=== PATIENT | female | born 1955 | race Two or more races ===

== ENCOUNTER 2016-05-01 10:48 | Emergency (ER) | payer BC ==
[2016-05-01] MEDS ORDERED: Aspirin Low Dose CHEW TAB* 81 MG PO ONE (11:06)
[2016-05-01] MEDS ORDERED: Nitroglycerin TAB 0.4 MG* 0.4 MG TAB SL ONE (11:07)
[2016-05-01 11:09] VITALS: BP 201/96
--- NOTE | 2016-05-01 11:26 | UC ---
Cardiac HPI - HPI Summary HPI Summary: ONSET OF MIDSTERNAL CHEST HEAVINESS/PAIN LAST NIGHT WHILE AT REST. HAS SOME RADIATION DOWN LEFT ARM. WENT TO SLEEP AND THIS MORNING FELT BETTER. SWEPT THE HOUSE AND THEN PAIN RETURNED. 08/03. HAS ASSOCIATED NAUSEA. NO SOB OR SWEATS. HAS H/O DM, HTN. GLUCOSE 105 [employer]. - History of Current Complaint Chief Complaint: UCChestPain Stated Complaint: CHEST PAIN Time Seen by Provider: 05/01/16 10:50 Hx Obtained From: Patient, Family/Processing Engineer - Onset/Duration: Sudden Onset, Lasting Hours, Still Present Initial Severity: Moderate Current Severity: Moderate Pain Intensity: 4 Chest Pain Location: Mid Sternal Character: Heaviness Aggravating: Nothing Alleviating: Nothing Associated Signs & Symptoms: Positive: Chest Pain, Nausea/Vomiting - Allergy/Home Medications Allergies/Adverse Reactions: Allergies Allergy/AdvReac Type Severity Reaction Status Date / Time No Known Allergies Allergy Verified 05/01/16 10:59 PMH/Surg Hx/FS Hx/Imm Hx Endocrine History Of: Reports: Diabetes Cardiovascular History Of: Reports: Hypertension Denies: Cardiac Disorders, Pacemaker/ICD - Surgical History Surgical History: Yes Surgery Procedure, Year, and Place: pancreatic cyst - Family History Known Family History: Positive: Hypertension, Diabetes Negative: Cardiac Disease - Social History Alcohol Use: None Substance Use Type: None Smoking Status (MU): Never Smoked Tobacco Review of Systems Constitutional: Negative Respiratory: Negative Cardiovascular: Chest Pain Gastrointestinal: Diarrhea, Other - NAUSEA All Other Systems Reviewed And Are Negative: Yes Physical Exam Triage Information Reviewed: Yes Appearance: Well-Appearing, Well-Nourished, Pain Distress - MILD Vital Signs: Initial Vital Signs Temp 98.1 F 05/01/16 11:01 Pulse 69 05/01/16 11:01 Resp 18 05/01/16 11:01 BP 201/96 05/01/16 11:01 Pulse Ox 100 05/01/16 11:01 Vital Signs Reviewed: Yes Eyes: Positive: Conjunctiva Clear ENT: Positive: Hearing grossly normal Neck: Positive: Supple Respiratory Exam: Normal Cardiovascular Exam: Normal Abdomen Description: Positive: Soft Musculoskeletal: Positive: No Edema Neurological: Positive: Alert Psychological: Positive: Age Appropriate Behavior Skin: Negative: rashes Diagnostics - EKG Cardiac Rate: NL - 69 BPM Cardiac Rhythm: Sinus: Normal Ectopy: None ST Segment: Normal - Differential Diagnoses - Chest Pain Differential Diagnosis/HQI/PQRI: Acute MO, ACS, Angina, CHF - Clinical Impression Provider Diagnoses: CHEST PAIN - Physician Notifications Discussed Patient Care With: DR. NUNEZ Time Discussed With Above Provider: 11:10 Instructed by Provider To: Transfer - TO [facility] BY AMBULANCE Discharge - Discharge Plan Condition: Guarded Disposition: TRANS HIGHER LVL OF CARE FAC Referrals: Teofilo Pruett MD [Primary Care Provider] -
== END 2016-05-01 11:27 | disposition short-term general hospital (02) ==
LOC: UCEAST 10:48
DX: R07.89 Other chest pain (principal); R11.2 Nausea with vomiting, unspecified
CPT/HCPCS: 93005; 99213; A9270-GY; G0463

== ENCOUNTER 2016-05-01 11:43 | Emergency (ER) | payer BC ==
[2016-05-01] MEDS ORDERED: Aspirin Low Dose CHEW TAB* 81 MG PO ONE (12:20)
[2016-05-01 12:46] LABS: Hematocrit 38 % (35-47); Hemoglobin 12.6 g/dl (12.0-16.0); Mean Corpuscular HGB Conc 33 g/dl (31-36); Mean Corpuscular Hemoglobin 29 pg (27-31); Mean Corpuscular Volume 88 fL (80-97); Mean Platelet Volume 8 um3 (7.4-10.4); Red Blood Count 4.33 10^6/ul (4.0-5.4); Red Cell Distribution Width 14 % (10.5-15); White Blood Count 4.8 10^3/ul (3.5-10.8)
[2016-05-01 12:58] LABS: Albumin 4.1 g/dL (3.2-5.2); BUN/Creatinine Ratio 17.6 (8-20); Calcium 9.6 mg/dL (8.6-10.3); EGFR African American 86.9 (>60); EGFR Non-African American 67.5 (>60); Globulin 3.1 g/dL (2-4); Magnesium 1.7 mg/dL (1.9-2.7); Potassium 4.1 mmol/L (3.5-5.0); Total Bilirubin 0.5 mg/dL (0.2-1.0); Total Protein 7.2 g/dL (6.4-8.9)
--- NOTE | 2016-05-01 12:58 | RAD ---
Indication: Mid to LEFT side chest pain since last evening. Comparison: February 01, 2013 CT. Technique: Upright AP 1230 hours Report: Rightward rotation noted. Clear lungs and pleural spaces. Negative for pneumothorax. Top normal heart size. Unremarkable central pulmonary vasculature. Unremarkable mediastinal contours accounting for rightward rotation. Epigastric surgical clips. IMPRESSION: No evidence for acute intrathoracic disease.
[2016-05-01 13:08] LABS: T4 7.9 g/dL (6.09-12.23)
[2016-05-01 13:09] LABS: TSH (Thyroid Stimulating Horm) 1.38 mcIU/mL (0.34-5.60)
[2016-05-01] MEDS ORDERED: Meclizine TAB* 12.5 MG PO ONE (14:32)
[2016-05-01] MEDS ORDERED: Labetalol IV* 5 MG/ML 20 ML VIAL IV PUSH ONE (14:33)
[2016-05-01 15:08] VITALS: BP 149/59
--- NOTE | 2016-05-01 16:57 | ED ---
Yunior Roblero Matthew, scribed for Juma Chau MD on 05/01/16 at 1315 . HPI Chest Pain - HPI Summary HPI Summary: A 61 y/o female presents to the ED with left sided chest pain since last night that started after the patient was watching TV. The pain was described as tightness, rated 6/10 in severity; however it is currently rated 0/10 in severity. Associated symptoms include loose BM x2 this morning, nausea, dizziness, diaphoresis, and vomiting - last night. The patient denies SOB and pedal edema. She initially thought it was her BP last night, so she took her medication and felt better. She woke-up this morning feeling fine. She then began to have nausea, diaphoresis, and dizziness, so she called her PCP who prompted her to come to the ED. She checked her sugars, which were normal this morning. - History of Current Complaint Chief Complaint: ED Time Seen by Provider: 05/01/16 12:20 Hx Obtained From: Patient Onset/Duration: Atraumatic Initial Severity: Moderate Current Severity: None Pain Intensity: 6 Pain Scale Used: 0-10 Numeric Chest Pain Location: Left Lateral Chest Pain Radiates: No Character: Tightness Aggravating Factor(s): Nothing Alleviating Factor(s): Nothing Associated Signs and Symptoms: Positive: Chest Pain, Dizziness, Diaphoresis, Nausea, Vomiting - last night. Negative: Shortness of Breath, Calf Pain/ Swelling, Edema - Allergy/Home Medications Allergies/Adverse Reactions: Allergies Allergy/AdvReac Type Severity Reaction Status Date / Time No Known Allergies Allergy Verified 05/01/16 10:59 Home Medications: Home Medications Gabapentin CAP(*) [Neurontin 100 mg CAP(*)] 100 - 300 mg PO BEDTIME 05/01/16 [ History Confirmed 05/01/16] Lisinopril [Lisinopril 40 MG-] 40 mg PO DAILY 05/01/16 [History Confirmed ] Pioglitazone TAB* [Actos TAB*] 30 mg PO QAM 05/01/16 [History Confirmed 05/01/16 ] glipiZIDE TAB.XL* [Glucotrol XL*] 2.5 mg PO DAILY 05/01/16 [History Confirmed ] metFORMIN* [Glucophage*] 1,000 mg PO DAILY 05/01/16 [History Confirmed 05/01/16] PMH/Surg Hx/FS Hx/Imm Hx Endocrine/Hematology History: Reports: Hx Diabetes Cardiovascular History: Reports: Hx Hypertension Denies: Hx Pacemaker/ICD Sensory History: Denies: Hx Hearing Aid Psychiatric History: Reports: Hx Panic Disorder - a little nervous - Cancer History Cancer Type, Location and Year: panc - Surgical History Surgery Procedure, Year, and Place: pancreatic cyst Infectious Disease History: Denies: Hx Clostridium Difficile, Hx Hepatitis, Hx Human Immunodeficiency Virus (HIV), Hx of Known/Suspected MRSA, Hx Shingles, Hx Tuberculosis, Hx Known/ Suspected VRE, Hx Known/Suspected VRSA, History Other Infectious Disease, Traveled Outside the [place] in Last 30 Days - Family History Known Family History: Positive: Hypertension, Diabetes Negative: Cardiac Disease - Social History Alcohol Use: None Substance Use Type: Reports: None Smoking Status (MU): Never Smoked Tobacco Review of Systems Positive: Skin Diaphoresis Eyes: Negative ENT: Negative Positive: Chest Pain Respiratory: Negative Negative: Shortness Of Breath Positive: Vomiting, Nausea, Other - loose BM Genitourinary: Negative Musculoskeletal: Negative Negative: Edema - pedal Skin: Negative Neurological: Other - Dizziness Psychological: Normal All Other Systems Reviewed And Are Negative: Yes Physical Exam - Summary Physical Exam Summary: VITAL SIGNS: Reviewed. GENERAL: Patient is an obese female who is lying comfortable in the stretcher. Patient is not in any acute respiratory distress. HEAD AND FACE: No signs of trauma. No ecchymosis, hematomas or skull depressions. No sinus tenderness. EYES: PERRLA, EOMI x 2, No injected conjunctiva, no nystagmus. EARS: Hearing grossly intact. Ear canals and tympanic membranes are within normal limits. MOUTH: Oropharynx within normal limits. NECK: Supple, trachea is midline, no adenopathy, no JVD, no carotid bruit, no c- spine tenderness, neck with full ROM. CHEST: Symmetric, no tenderness at palpation LUNGS: Clear to auscultation bilaterally. No wheezing or crackles. CVS: Regular rate and rhythm, S1 and S2 present, no murmurs or gallops appreciated. ABDOMEN: Soft, non-tender. No signs of distention. No rebound no guarding, and no masses palpated. Bowel sounds are normal. EXTREMITIES: FROM in all major joints, no edema, no cyanosis or clubbing. NEURO: Alert and oriented x 3. No acute neurological deficits. Speech is normal and follows commands. SKIN: Dry and warm Triage Information Reviewed: Yes Vital Signs On Initial Exam: Initial Vitals Temp Pulse Resp BP Pulse Ox 97.5 F 64 15 175/82 62 05/01/16 12:07 05/01/16 12:07 05/01/16 12:07 05/01/16 12:07 05/01/16 12:07 Vital Signs Reviewed: Yes Diagnostics - Vital Signs Vital Signs Temp Pulse Resp BP Pulse Ox 05/01/16 12:07 97.5 F 64 15 175/82 62 - Laboratory Lab Results: Lab Results 05/01/16 05/01/16 05/01/16 Range/Units 11:05 11:05 11:05 WBC 4.8 (3.5-10.8) 10^3/ul RBC 4.33 (4.0-5.4) 10^6/ul Hgb 12.6 (12.0-16.0) g/dl Hct 38 (35-47) % MCV 88 (80-97) fL MCH 29 (27-31) pg MCHC 33 (31-36) g/dl RDW 14 (10.5-15) % Plt Count 198 (150-450) 10^3/ul MPV 8 (7.4-10.4) um3 Neut % (Auto) 49.8 (38-83) % Lymph % (Auto) 40.5 (25-47) % [place] % (Auto) 7.3 (1-9) % Eos % (Auto) 1.9 (0-6) % Baso % (Auto) 0.5 (0-2) % Absolute Neuts (auto) 2.4 (1.5-7.7) 10^3/ul Absolute Lymphs (auto) 1.9 (1.0-4.8) 10^3/ul Absolute Monos (auto) 0.3 (0-0.8) 10^3/ul Absolute Eos (auto) 0.1 (0-0.6) 10^3/ul Absolute Basos (auto) 0 (0-0.2) 10^3/ul Absolute Nucleated RBC 0 10^3/ul Nucleated RBC % 0.1 Sodium 133 (133-145) mmol/L Potassium 4.1 (3.5-5.0) mmol/L Chloride 103 (101-111) mmol/L Carbon Dioxide 28 (22-32) mmol/L Anion Gap 2 (2-11) mmol/L BUN 15 (6-24) mg/dL Creatinine 0.85 (0.51-0.95) mg/dL Est GFR ( Amer) 86.9 (>60) Est GFR (Non-Af Amer) 67.5 (>60) BUN/Creatinine Ratio 17.6 (8-20) Glucose 150 H (70-100) mg/dL Calcium 9.6 (8.6-10.3) mg/dL Magnesium 1.7 L (1.9-2.7) mg/dL Total Bilirubin 0.50 (0.2-1.0) mg/dL AST 22 (13-39) U/L ALT 13 (7-52) U/L Alkaline Phosphatase 64 (34-104) U/L CK-MB (CK-2) 1.6 (0.6-6.3) ng/mL Troponin I 0.00 (<0.04) ng/mL B-Natriuretic Peptide 39 ( - 100) pg/mL Total Protein 7.2 (6.4-8.9) g/dL Albumin 4.1 (3.2-5.2) g/dL Globulin 3.1 (2-4) g/dL Albumin/Globulin Ratio 1.3 (1-3) TSH 1.38 (0.34-5.60) mcIU/mL Thyroxine (T4) 7.90 (6.09-12.23) g/dL Result Diagrams: 05/01/16 11:05 05/01/16 11:05 Lab Statement: Any lab studies that have been ordered have been reviewed, and results considered in the medical decision making process. - Radiology CXR Xray Interpretation: No Acute Changes - IMPRESSION: No evidence for acute intrathoracic disease. Radiology Interpretation Completed By: Radiologist - EKG 13:23 Cardiac Rate: NL - 62 bpm EKG Rhythm: Sinus Rhythm EKG Interpretation: No ST elevation Chest Pain Course/Dx - Course Assessment/Plan: A 61 y/o presents to the ED with a CC of chest pain with nausea. Blood work WNL. Troponin 1 was 0.00. Troponin 2 after 4 hours was 0.00. Since the patient was hypertensive and dyslipidemia, I discussed the case with Dr. Astudillo and since she is unable to run the stress test she recommended the patient DC home and follow-up with her PCP and corporate administrative assistant for possible stress test. She was also given Antivert for dizziness and her symptoms resolved. The patient was slightly hypertensive therefor she was given one dose of Labetalol and the BP improved. She was also dizziness and was given one dose of meclizine. The patient at this point remains asymptomatic and she has no other complaints. The patient and the patients will return ot the ED if she develops CP, nausea, vomiting, SOB, or diaphoresis. They understand and agree. She is hemodynamically stable and A&Ox3. Patients blood pressure was noted to be elevated. The patient was instructed to follow up with primary care provider for reassessment of increased blood pressure. I discussed all my findings and test results with the patient. Patient understands and agrees. Patient was instructed to return to the emergency room immediately if any of the symptoms return or worsens. Patient understands and agrees. Plan of care was discussed with the patient and patient understands and agrees with the plan of care. All questions were answered at patient satisfaction. There were no further complaints or concerns. Patient was instructed to follow up with primary care physician within 3 to 5 days. Patient is hemodynamically stable. Patient is alert and oriented x 3. No acute neurological deficits. - Chest Pain Differential Diagnosis/HQI/PQRI: Acute PR, ACS, Angina, CHF, Chest Wall, GI Disease, Pulmonary Edema - Diagnoses Provider Diagnoses: Chest pain, Dizziness, Hypertension Discharge - Discharge Plan Condition: Stable Disposition: HOME Prescriptions: Meclizine TAB* [Antivert 12.5 TAB*] 25 mg PO TID PRN #20 tab PRN Reason: Dizziness Patient Education Materials: Chest Pain (ED), Vertigo (ED) Referrals: Teofilo Pruett MD [Primary Care Provider] - Carl Hassan MD [Medical Doctor] - Additional Instructions: Please follow-up with your primary care physician and your corporate administrative assistant in two days. The documentation as recorded by the Yunior sparks Matthew accurately reflects the service I personally performed and the decisions made by , Juma Chau MD.
== END 2016-05-01 17:22 | disposition home or self-care (01) ==
LOC: ED 11:43
DX: R07.9 Chest pain, unspecified (principal); I10 Essential (primary) hypertension; R42 Dizziness and giddiness; R11.2 Nausea with vomiting, unspecified
CPT/HCPCS: 36415; 71010; 80053; 82553; 83735; 83880; 84436; 84443; 84484; 85025; 93005; 96365; 99213; 99282; A9270-GY; G0463

== ENCOUNTER 2016-05-02 17:35 | Emergency (ER) | payer BC ==
[2016-05-02 18:40] LABS: Hematocrit 38 % (35-47); Hemoglobin 12.6 g/dl (12.0-16.0); Mean Corpuscular HGB Conc 33 g/dl (31-36); Mean Corpuscular Hemoglobin 29 pg (27-31); Mean Corpuscular Volume 88 fL (80-97); Mean Platelet Volume 8 um3 (7.4-10.4); Red Blood Count 4.36 10^6/ul (4.0-5.4); Red Cell Distribution Width 14 % (10.5-15); White Blood Count 4.8 10^3/ul (3.5-10.8)
--- NOTE | 2016-05-02 18:54 | RAD ---
HISTORY: Dizziness COMPARISONS: None TECHNIQUE: Multiple contiguous axial CT scans were obtained of the head without intravenous contrast. FINDINGS: HEMORRHAGE/INFARCT: There is no hemorrhage or acute infarct. MASSES/SHIFT: There is no mass or shift. EXTRA-AXIAL SPACES: There are no extra-axial fluid collections. SULCI AND VENTRICLES: The sulci and ventricles are normal in size and position for the patient's stated age. CEREBRUM: There are no focal parenchymal abnormalities. BRAINSTEM: There are no focal parenchymal abnormalities. CEREBELLUM: There are no focal parenchymal abnormalities. VESSELS: The vessels are grossly normal. PARANASAL SINUSES: The paranasal sinuses are clear. ORBITS: The orbits are unremarkable. BONES AND SOFT TISSUE: No bone or soft tissue abnormalities are noted. OTHER: None IMPRESSION: NO ACUTE INTRACRANIAL PATHOLOGY.
[2016-05-02 18:55] LABS: BUN/Creatinine Ratio 18.2 (8-20); Calcium 9.4 mg/dL (8.6-10.3); EGFR African American 83.5 (>60); EGFR Non-African American 64.9 (>60); Magnesium 1.6 mg/dL (1.9-2.7); Total Bilirubin 0.5 mg/dL (0.2-1.0)
[2016-05-02 18:57] LABS: Troponin I 0.01 ng/mL (<0.04)
[2016-05-02 19:05] LABS: TSH (Thyroid Stimulating Horm) 1.96 mcIU/mL (0.34-5.60)
[2016-05-02] MEDS ORDERED: Metoprolol Tartrate TAB* 50 mg PO ONE (19:14)
[2016-05-02] MEDS ORDERED: Meclizine TAB* 12.5 MG PO ONE (20:43)
[2016-05-02] MEDS ORDERED: Metoprolol Tartrate TAB* 25 MG PO ONE (21:59)
[2016-05-02 22:18] VITALS: BP 182/69
--- NOTE | 2016-05-02 22:18 | ED ---
Yunior Roblero Matthew, scribed for Papa Oneill MD on 05/02/16 at 1812 . Dizziness - HPI Summary HPI Summary: A 61 y/o female presents to the ED with intermittent dizziness since 04/25/16, which worsened at 16:00 today. The dizziness is described as vertigo and lightheadedness. The patient states that she woke-up normally this morning. Associated symptoms include vomiting, lightheadedness, and vertigo. The patient took meclizine at 16:00 today, which did not alleviate her dizziness. During the episode today, she had left sided chest tightness with no pain, which has since alleviated. The dizziness worsens with the patient sits up and is unaffected when laying down. The patient was seen yesterday in the ED for chest pain. - History Of Current Complaint Chief Complaint: EDDizziness Stated Complaint: HIGH BLOOD PRESSURE/DIZZINESS Time Seen by Provider: 05/02/16 17:48 Hx Obtained From: Patient Onset/Duration: Still Present Timing: Intermittent Episode Lasting Severity Initially: Moderate Severity Currently: Moderate Character: Room Spinning, Lightheaded Aggravating Factor(s): Position Change Alleviating Factor(s): Nothing Associated Signs And Symptoms: Positive: Vomiting, Other: - Lightheaded; Vertigo - Allergies/Home Medications Allergies/Adverse Reactions: Allergies Allergy/AdvReac Type Severity Reaction Status Date / Time No Known Allergies Allergy Verified 05/02/16 17:50 PMH/Surg Hx/FS Hx/Imm Hx Endocrine/Hematology History: Reports: Hx Diabetes Cardiovascular History: Reports: Hx Hypertension Denies: Hx Pacemaker/ICD Sensory History: Denies: Hx Hearing Aid Psychiatric History: Reports: Hx Panic Disorder - a little nervous - Cancer History Cancer Type, Location and Year: panc - Surgical History Surgery Procedure, Year, and Place: pancreatic cyst Infectious Disease History: No Infectious Disease History: Denies: Hx Clostridium Difficile, Hx Hepatitis, Hx Human Immunodeficiency Virus (HIV), Hx of Known/Suspected MRSA, Hx Shingles, Hx Tuberculosis, Hx Known/ Suspected VRE, Hx Known/Suspected VRSA, History Other Infectious Disease, Traveled Outside the [place] in Last 30 Days - Family History Known Family History: Positive: Hypertension, Diabetes Negative: Cardiac Disease - Social History Alcohol Use: None Substance Use Type: Reports: None Smoking Status (MU): Never Smoked Tobacco Review of Systems Constitutional: Negative Eyes: Negative ENT: Negative Cardiovascular: Negative Respiratory: Negative Positive: Vomiting Genitourinary: Negative Musculoskeletal: Negative Skin: Negative Neurological: Other - Lightheaded; Vertigo Psychological: Normal All Other Systems Reviewed And Are Negative: Yes Physical Exam Triage Information Reviewed: Yes Vital Signs On Initial Exam: Initial Vitals Temp Pulse Resp BP Pulse Ox 98.3 F 69 16 201/69 99 05/02/16 17:40 05/02/16 17:40 05/02/16 17:40 05/02/16 17:40 05/02/16 17:40 Vital Signs Reviewed: Yes Appearance: Positive: Well-Appearing, No Pain Distress Skin: Positive: Warm, Skin Color Reflects Adequate Perfusion, Dry Head/Face: Positive: Normal Head/Face Inspection Eyes: Positive: Normal, Other: - no nystagmus; prefers to keep her eyes closed ENT: Positive: Normal ENT inspection Neck: Positive: Supple, Nontender Respiratory/Lung Sounds: Positive: Clear to Auscultation, Breath Sounds Present Cardiovascular: Positive: RRR Abdomen Description: Positive: Nontender, Soft Bowel Sounds: Positive: Present Musculoskeletal: Positive: Normal Neurological: Positive: Normal Psychiatric: Positive: Normal, Affect/Mood Appropriate Diagnostics - Vital Signs Vital Signs Temp Pulse Resp BP Pulse Ox 05/02/16 17:40 98.3 F 69 16 201/69 99 - Laboratory Lab Results: Lab Results 05/02/16 05/02/16 05/02/16 Range/Units 18:32 18:32 18:32 WBC 4.8 (3.5-10.8) 10^3/ul RBC 4.36 (4.0-5.4) 10^6/ul Hgb 12.6 (12.0-16.0) g/dl Hct 38 (35-47) % MCV 88 (80-97) fL MCH 29 (27-31) pg MCHC 33 (31-36) g/dl RDW 14 (10.5-15) % Plt Count 185 (150-450) 10^3/ul MPV 8 (7.4-10.4) um3 Neut % (Auto) 48.3 (38-83) % Lymph % (Auto) 39.4 (25-47) % Will % (Auto) 9.1 H (1-9) % Eos % (Auto) 2.3 (0-6) % Baso % (Auto) 0.9 (0-2) % Absolute Neuts (auto) 2.3 (1.5-7.7) 10^3/ul Absolute Lymphs (auto) 1.9 (1.0-4.8) 10^3/ul Absolute Monos (auto) 0.4 (0-0.8) 10^3/ul Absolute Eos (auto) 0.1 (0-0.6) 10^3/ul Absolute Basos (auto) 0 (0-0.2) 10^3/ul Absolute Nucleated RBC 0 10^3/ul Nucleated RBC % 0.1 Sodium 129 L (133-145) mmol/L Potassium 4.0 (3.5-5.0) mmol/L Chloride 109 (101-111) mmol/L Carbon Dioxide 26 (22-32) mmol/L Anion Gap -6 L (2-11) mmol/L BUN 16 (6-24) mg/dL Creatinine 0.88 (0.51-0.95) mg/dL Est GFR ( Amer) 83.5 (>60) Est GFR (Non-Af Amer) 64.9 (>60) BUN/Creatinine Ratio 18.2 (8-20) Glucose 126 H (70-100) mg/dL Lactic Acid 0.9 (0.5-2.0) mmol/L Calcium 9.4 (8.6-10.3) mg/dL Magnesium 1.6 L (1.9-2.7) mg/dL Total Bilirubin 0.50 (0.2-1.0) mg/dL AST 19 (13-39) U/L ALT 12 (7-52) U/L Alkaline Phosphatase 61 (34-104) U/L Troponin I 0.01 (<0.04) ng/mL Total Protein 7.0 (6.4-8.9) g/dL Albumin 4.0 (3.2-5.2) g/dL Globulin 3.0 (2-4) g/dL Albumin/Globulin Ratio 1.3 (1-3) TSH 1.96 (0.34-5.60) mcIU/mL 05/02/16 Range/Units 21:23 WBC (3.5-10.8) 10^3/ul RBC (4.0-5.4) 10^6/ul Hgb (12.0-16.0) g/dl Hct (35-47) % MCV (80-97) fL MCH (27-31) pg MCHC (31-36) g/dl RDW (10.5-15) % Plt Count (150-450) 10^3/ul MPV (7.4-10.4) um3 Neut % (Auto) (38-83) % Lymph % (Auto) (25-47) % Will % (Auto) (1-9) % Eos % (Auto) (0-6) % Baso % (Auto) (0-2) % Absolute Neuts (auto) (1.5-7.7) 10^3/ul Absolute Lymphs (auto) (1.0-4.8) 10^3/ul Absolute Monos (auto) (0-0.8) 10^3/ul Absolute Eos (auto) (0-0.6) 10^3/ul Absolute Basos (auto) (0-0.2) 10^3/ul Absolute Nucleated RBC 10^3/ul Nucleated RBC % Sodium (133-145) mmol/L Potassium (3.5-5.0) mmol/L Chloride (101-111) mmol/L Carbon Dioxide (22-32) mmol/L Anion Gap (2-11) mmol/L BUN (6-24) mg/dL Creatinine (0.51-0.95) mg/dL Est GFR ( Amer) (>60) Est GFR (Non-Af Amer) (>60) BUN/Creatinine Ratio (8-20) Glucose (70-100) mg/dL Lactic Acid (0.5-2.0) mmol/L Calcium (8.6-10.3) mg/dL Magnesium (1.9-2.7) mg/dL Total Bilirubin (0.2-1.0) mg/dL AST (13-39) U/L ALT (7-52) U/L Alkaline Phosphatase (34-104) U/L Troponin I 0.00 (<0.04) ng/mL Total Protein (6.4-8.9) g/dL Albumin (3.2-5.2) g/dL Globulin (2-4) g/dL Albumin/Globulin Ratio (1-3) TSH (0.34-5.60) mcIU/mL Result Diagrams: 05/02/16 18:32 05/02/16 18:32 Lab Statement: Any lab studies that have been ordered have been reviewed, and results considered in the medical decision making process. - CT Brain CT CT Interpretation: No Acute Changes - IMPRESSION: NO ACUTE INTRACRANIAL PATHOLOGY. CT Interpretation Completed By: Radiologist - EKG 17:44 Cardiac Rate: NL - 65 bpm EKG Rhythm: Sinus Rhythm 19:01 Cardiac Rate: NL - 65 bpm EKG Rhythm: Sinus Rhythm Dizzy Course/Dx - Course Course Of Treatment: Ms. Garcia has presented twice in as many days with the same C/O. She C/O some minor, transient CP as well as some lightheadedness which she says involves spinning sometimes and not others. He BP has been running high. She was treated symptomatically here and checked with a couple troponins (her EDACS score is 10). She was encouraged to F/U in the next couple of days and Metoprolol was added to her regimen. - Diagnoses Provider Diagnoses: Chest pain, HTN (hypertension) Discharge - Discharge Plan Condition: Stable Disposition: HOME Prescriptions: Metoprolol Tartrate TAB* [Lopressor TAB*] 25 mg PO BID #20 tab Patient Education Materials: Chest Pain (ED), Hypertension (ED), Metoprolol ( By mouth) Referrals: Teofilo Pruett MD [Primary Care Provider] - 2 Days Additional Instructions: Please follow-up with your primary care physician in two days. The documentation as recorded by the Yunior sparks Matthew accurately reflects the service I personally performed and the decisions made by me, Papa Oneill MD.
== END 2016-05-02 22:18 | disposition home or self-care (01) ==
LOC: ED 17:35
DX: R07.9 Chest pain, unspecified (principal); I10 Essential (primary) hypertension
CPT/HCPCS: 36415; 70450; 80053; 83605; 83735; 84443; 84484; 85025; 93005; 99284; A9270-GY

== ENCOUNTER 2017-08-18 06:43 | Day surgery (SDC) | payer BC ==
[~2017-08-18 06:43] MED LIST: Acetaminophen TAB* 325 MG PO PRN; Buffered Lidocaine 0.9% SYRIN* 5 ML/SYR SYRINGE INTRADERM ONE
[2017-08-18] MEDS ORDERED: fentaNYL* 50 MCG/ML 2 ML VIAL (100 MCG VIAL) ONE (07:39)
[2017-08-18] MEDS ORDERED: Midazolam* 1 MG/ML 2 ML VIAL (2 MG) ONE ×2 (07:40→08:05)
[2017-08-18] MEDS ORDERED: Lidocaine 2% EPI 1:200000 MPF*10-20 ML VIAL ONE (07:47)
[2017-08-18] MEDS ORDERED: Ketorolac 0.5% OPHTH (NF) 0.5 % 5 ML BTL ONE (07:47)
[2017-08-18] MEDS ORDERED: Neomycin/Polymy/Dex OPTH.SUSP* MAXITROL 0.1% 5 ML ONE (07:47)
[2017-08-18] MEDS ORDERED: Cyclopentolate 1% OPTH.SOL* 2 ML BTL ONE (07:47)
[2017-08-18] MEDS ORDERED: Phenylephrine 2.5% OPTH.SOL* 2 ML BTL ONE (07:47)
[2017-08-18] MEDS ORDERED: acetaZOLAMIDE TAB* 250 MG ONE (07:47)
[2017-08-18] MEDS ORDERED: Lidocaine 1% MPF* 2 ML VIAL ONE (07:47)
[2017-08-18] MEDS ORDERED: Povidone Iodine 5% OPTH* 30 ML BTL ONE (07:47)
[2017-08-18] MEDS ORDERED: Proparacaine 0.5% OPHTH.SOL* 15 ML BTL ONE (07:48)
[2017-08-18 09:08] VITALS: BP 136/86
--- NOTE | 2017-08-18 11:16 | OP ---
OPERATIVE NOTE: DATE OF OPERATION: 08/18/17 - [facility] DATE OF : 51 SURGEON: Leopoldo Cochran M.D. PREOPERATIVE DIAGNOSIS: Cataract, left eye. POSTOPERATIVE DIAGNOSIS: Cataract, left eye. OPERATIVE PROCEDURE: Extracapsular cataract extraction with IOL implant left eye. PROCEDURE: The patient was brought to the operating room after being given 1/2 % Alcaine with epinephrine drops in the preoperative area. The eye was prepped and draped in the usual sterile fashion. Sterile drape and eyelid speculum were placed. Again, topical 1/2% Alcaine with epinephrine was given. A paracentesis incision was made at the 3 o'clock position with the No.75 blade. Clear cornea incision 2.2 x 2.2-mm was created at the 6 o'clock position starting at the anterior limbus using the 2.2-mm keratome. The anterior chamber was irrigated with 0.4 mL of 1% non-preservative intracameral lidocaine and filled with DisCoVisc. A capsulorrhexis was completed using the cystotome and the Utrata forceps. Hydrodissection was performed with balanced salt solution. The lens nucleus was removed with the Phacoemulsification handpiece without incident. Cortex was removed with the irrigation-aspiration handpiece. The capsular bag was re-inflated using DisCoVisc and an [id number] implant was inserted with the shooter. The irrigation-aspiration handpiece was used to remove all residual DisCoVisc. The eye was refilled with balanced salt solution and the wound checked and found to be watertight. Topical Maxitrol drops were given. [id number]/[id number] #: [id number] [facility] MEDICAL CENTERKelsey
== END 2017-08-18 08:43 | disposition home or self-care (01) ==
LOC: OREAST 06:43
PROVIDERS: ATTEND Specialist
DX: H25.812 Combined forms of age-related cataract, left eye (principal); E11.9 Type 2 diabetes mellitus without complications; Z79.84 Long term (current) use of oral hypoglycemic drugs; G47.33 Obstructive sleep apnea (adult) (pediatric); F41.9 Anxiety disorder, unspecified; I10 Essential (primary) hypertension
CPT/HCPCS: A9270-GY; J2250; J3010; V2632

== ENCOUNTER 2017-08-25 10:32 | Day surgery (SDC) | payer BC ==
[~2017-08-25 10:32] MED LIST changes: +Cyclopentolate 1% OPTH.SOL* 2 ML BTL ONE; +Ketorolac 0.5% OPHTH (NF) 0.5 % 5 ML BTL ONE; +Lidocaine 1% MPF* 2 ML VIAL ONE; +Lidocaine 2% EPI 1:200000 MPF*10-20 ML VIAL ONE; +Neomycin/Polymy/Dex OPTH.SUSP* MAXITROL 0.1% 5 ML ONE; +Phenylephrine 2.5% OPTH.SOL* 2 ML BTL ONE; +Povidone Iodine 5% OPTH* 30 ML BTL ONE; +Proparacaine 0.5% OPHTH.SOL* 15 ML BTL ONE; +acetaZOLAMIDE TAB* 250 MG ONE
[2017-08-25] MEDS ORDERED: fentaNYL* 50 MCG/ML 2 ML VIAL (100 MCG VIAL) ONE (11:54)
[2017-08-25] MEDS ORDERED: Midazolam* 1 MG/ML 5 ML VIAL (5 MG) ONE (11:54)
[2017-08-25 13:28] VITALS: BP 155/89
--- NOTE | 2017-08-25 15:11 | OP ---
DATE OF OPERATION: 08/25/2017 - [facility] DATE OF : 1955. SURGEON: Leopoldo Cochran M.D. PREOPERATIVE DIAGNOSIS: Cataract right eye. POSTOPERATIVE DIAGNOSIS: Cataract right eye. OPERATIVE PROCEDURE: Extracapsular cataract extraction with intraocular lens implant right eye. DESCRIPTION OF PROCEDURE: The patient was brought to the operating room after being given 1/2% Alcaine with epinephrine drops in the preoperative area. The eye was prepped and draped in the usual sterile fashion. Sterile drape and eyelid speculum were placed. Again, topical 1/2% Alcaine with epinephrine was given. A paracentesis incision was made at the 9 o'clock position with the No.75 blade. Clear cornea incision 2.2 x 2.2-mm was created at the 12 o'clock position starting at the anterior limbus using the 2.2-mm keratome. The anterior chamber was irrigated with 0.4 mL of 1% non-preservative intracameral lidocaine and filled with DisCoVisc. A capsulorrhexis was completed using the cystotome and the Utrata forceps. Hydrodissection was performed with balanced salt solution. The lens nucleus was removed with the Phacoemulsification handpiece without incident. Cortex was removed with the irrigation-aspiration handpiece. The capsular bag was re-inflated using DisCoVisc and an [id number] implant was inserted with the shooter. The irrigation-aspiration handpiece was used to remove all residual DisCoVisc. The eye was refilled with balanced salt solution and the wound checked and found to be watertight. Topical Maxitrol drops were given. [id number]/[facility] #: [id number] [facility]
== END 2017-08-25 13:25 | disposition home or self-care (01) ==
LOC: OREAST 10:32
PROVIDERS: ATTEND Specialist
DX: H25.811 Combined forms of age-related cataract, right eye (principal); E11.9 Type 2 diabetes mellitus without complications; Z79.84 Long term (current) use of oral hypoglycemic drugs; G47.33 Obstructive sleep apnea (adult) (pediatric); K76.0 Fatty (change of) liver, not elsewhere classified; K21.9 Gastro-esophageal reflux disease without esophagitis; F41.9 Anxiety disorder, unspecified
CPT/HCPCS: A9270-GY; J2250; J3010; V2632

== ENCOUNTER 2018-01-03 19:19 | Emergency (ER) | payer BC ==
[2018-01-03 20:59] LABS: ABS Basophils 0 10^3/ul (0-0.2); ABS Eosinophils 0 10^3/ul (0-0.6); ABS Lymphocytes 0.8 10^3/ul (1.0-4.8); ABS Monocytes 0.3 10^3/ul (0-0.8); ABS Neutrophils 2.7 10^3/ul (1.5-7.7); ABS Nucleated RBC 0 10^3/ul; Eosinophil % 1.2 % (0-6); Hematocrit 39 % (35-47); Lymphocyte % 20.8 % (25-47); Mean Corpuscular HGB Conc 34 g/dl (31-36); Mean Corpuscular Hemoglobin 30 pg (27-31); Mean Corpuscular Volume 89 fL (80-97); Nucleated Red Blood Cells % 0; Platelet Count 192 10^3/ul (150-450); Red Blood Count 4.35 10^6/ul (4.00-5.40); Red Cell Distribution Width 13 % (10.5-15); White Blood Count 3.8 10^3/ul (3.5-10.8)
[2018-01-03 21:19] LABS: EGFR Non-African American 71.2 (>60)
--- NOTE | 2018-01-03 21:32 | RAD ---
EXAM: CT Head Without Intravenous Contrast CLINICAL HISTORY: 62 years old, female; Pain; Headache; Other: Pt stated that she has a very bad CALZADA and dizziness and HTN and anxiety attack TECHNIQUE: Axial computed tomography images of the head/brain without intravenous contrast. All CT scans at this facility use at least one of these dose optimization techniques: automated exposure control; mA and/or kV adjustment per patient size (includes targeted exams where dose is matched to clinical indication); or iterative reconstruction. COMPARISON: BRAIN WO CT BRAIN WO 05/02/2016 6:40 PM FINDINGS: Brain: Unremarkable. No hemorrhage. No significant white matter disease. No edema. Ventricles: Unremarkable. No ventriculomegaly. Bones/joints: Unremarkable. No acute fracture. Soft tissues: Unremarkable. Vasculature: Atherosclerotic calcification. Sinuses: Unremarkable as visualized. No acute sinusitis. Mastoid air cells: Unremarkable as visualized. No mastoid effusion. IMPRESSION: 1. No acute intracranial abnormality. 2. No change from the comparison study.
[2018-01-03] MEDS ORDERED: Meclizine TAB* 12.5 MG PO ONE (22:46)
[2018-01-03] MEDS ORDERED: Ondansetron INJ* 2 MG/ML VIAL IV ONE (22:46)
[2018-01-03] MEDS ORDERED: Ketorolac INJ* 30 MG/ML 1 ML VIAL IV PUSH ONE (22:46)
--- NOTE | 2018-01-03 22:46 | ED ---
Headache - HPI Summary HPI Summary: A 62 y/o female accompanied by a friend presents to ED c/o headache and dizziness reaching 7/10 in severity. As per triage, "Pt stated that she has a very bad CALZADA and dizziness and HTN and anxiety attack". According to the patient , she has been experiencing headache and dizziness (room-spinning) for the past 2-3 days. She denies any nausea, but is experiencing anxiety (which is really bothering her). It was noted in the ED room that the patient was shaking. Symptoms are worse with movement. Patient has no prior history of these symptoms. - History Of Current Complaint Chief Complaint: EDHeadache Stated Complaint: HEADACHE/HIGH BLOOD PRESSURE PER HOME DEVICE Time Seen by Provider: 01/03/18 22:38 Hx Obtained From: Patient Onset/Duration: Sudden Onset, Started days ago, Still Present Initially Headache Was: Moderate - 7/10 Currently Pain Is: Moderate - 7/10 Timing: Constant Location of Headache: Diffuse Radiates to: None Aggravating Factor: Other - Movement Allevating Factors: Nothing Associated Signs And Symptoms: Negative - Allergies/Home Medications Allergies/Adverse Reactions: Allergies Allergy/AdvReac Type Severity Reaction Status Date / Time No Known Allergies Allergy Verified 01/03/18 19:27 PMH/Surg Hx/FS Hx/Imm Hx Endocrine/Hematology History: Reports: Hx Diabetes Cardiovascular History: Reports: Hx Hypertension Denies: Hx Pacemaker/ICD, Other Cardiovascular Problems/Disorders Respiratory History: Denies: Other Respiratory Problems/Disorders GI History: Denies: Other GI Disorders Sensory History: Reports: Hx Cataracts - taran, Hx Contacts or Glasses - glasses Denies: Hx Hearing Aid Opthamlomology History: Reports: Hx Cataracts - taran, Hx Contacts or Glasses - glasses Neurological History: Denies: Other Neuro Impairments/Disorders Psychiatric History: Reports: Hx Anxiety - on meds, Hx Panic Disorder - a little nervous - Cancer History Cancer Type, Location and Year: denies - Surgical History Surgery Procedure, Year, and Place: pancreatic cyst, Hx Anesthesia Reactions: No Infectious Disease History: No Infectious Disease History: Denies: Hx Clostridium Difficile, Hx Hepatitis, Hx Human Immunodeficiency Virus (HIV), Hx of Known/Suspected MRSA, Hx Shingles, Hx Tuberculosis, Hx Known/ Suspected VRE, Hx Known/Suspected VRSA, History Other Infectious Disease, Traveled Outside the [place] in Last 30 Days - Family History Known Family History: Positive: Hypertension, Diabetes Negative: Cardiac Disease - Social History Alcohol Use: None Substance Use Type: Reports: None Smoking Status (MU): Never Smoked Tobacco Review of Systems Positive: Other - POSITIVE: Shaking.. Negative: Fever Negative: Nausea Neurological: Other - POSITIVE: Dizziness Positive: Headache Positive: Anxious All Other Systems Reviewed And Are Negative: Yes Physical Exam - Summary Physical Exam Summary: VITAL SIGNS: Reviewed. GENERAL: Patient is a well-developed and nourished female who is lying comfortable in the stretcher. Patient is not in any acute respiratory distress. HEAD AND FACE: No signs of trauma. No ecchymosis, hematomas or skull depressions. No sinus tenderness. EYES: PERRLA, EOMI x 2, No injected conjunctiva, no nystagmus. Normal eye exam. EARS: Hearing grossly intact. Ear canals and tympanic membranes are within normal limits. MOUTH: Oropharynx within normal limits. NECK: Supple, trachea is midline, no adenopathy, no JVD, no carotid bruit, no c- spine tenderness, neck with full ROM. CHEST: Symmetric, no tenderness at palpation LUNGS: Clear to auscultation bilaterally. No wheezing or crackles. CVS: Regular rate and rhythm, S1 and S2 present, no murmurs or gallops appreciated. ABDOMEN: Soft, non-tender. No signs of distention. No rebound no guarding, and no masses palpated. Bowel sounds are normal. EXTREMITIES: FROM in all major joints, no edema, no cyanosis or clubbing. NEURO: Alert and oriented x 3. No acute neurological deficits. Speech is normal and follows commands. Normal coordination, no dysmetria SKIN: Dry and warm PSYCH: Anxious GCS: 15 PATIENT HAS BEEN HAVING SYMPTOMS FOR 3 DAYS. Triage Information Reviewed: Yes Vital Signs On Initial Exam: Initial Vitals Temp Pulse Resp BP Pulse Ox 97.5 F 65 18 164/81 97 01/03/18 19:25 01/03/18 19:25 01/03/18 19:25 01/03/18 19:25 01/03/18 19:25 Vital Signs Reviewed: Yes Diagnostics - Vital Signs Vital Signs Temp Pulse Resp BP Pulse Ox 01/03/18 21:04 97.5 F 56 18 154/61 100 01/03/18 19:25 97.5 F 65 18 164/81 97 - Laboratory Lab Results: Lab Results 01/03/18 01/03/18 01/03/18 Range/Units 20:44 20:44 20:45 WBC 3.8 (3.5-10.8) 10^3/ul RBC 4.35 (4.00-5.40) 10^6/ul Hgb 13.0 (12.0-16.0) g/dl Hct 39 (35-47) % MCV 89 (80-97) fL MCH 30 (27-31) pg MCHC 34 (31-36) g/dl RDW 13 (10.5-15) % Plt Count 192 (150-450) 10^3/ul MPV 8.0 (7.4-10.4) um3 Neut % (Auto) 70.7 (38-83) % Lymph % (Auto) 20.8 L (25-47) % Lake % (Auto) 6.8 (0-7) % Eos % (Auto) 1.2 (0-6) % Baso % (Auto) 0.5 (0-2) % Absolute Neuts (auto) 2.7 (1.5-7.7) 10^3/ul Absolute Lymphs (auto) 0.8 L (1.0-4.8) 10^3/ul Absolute Monos (auto) 0.3 (0-0.8) 10^3/ul Absolute Eos (auto) 0 (0-0.6) 10^3/ul Absolute Basos (auto) 0 (0-0.2) 10^3/ul Absolute Nucleated RBC 0 10^3/ul Nucleated RBC % 0 Sodium 131 L (135-145) mmol/L Potassium 4.1 (3.5-5.0) mmol/L Chloride 100 L (101-111) mmol/L Carbon Dioxide 25 (22-32) mmol/L Anion Gap 6 (2-11) mmol/L BUN 15 (6-24) mg/dL Creatinine 0.81 (0.51-0.95) mg/dL Est GFR ( Amer) 86.1 (>60) Est GFR (Non-Af Amer) 71.2 (>60) BUN/Creatinine Ratio 18.5 (8-20) Glucose 123 H (70-100) mg/dL Lactic Acid 0.4 L (0.5-2.0) mmol/L Calcium 9.3 (8.6-10.3) mg/dL Magnesium 1.6 L (1.9-2.7) mg/dL Total Bilirubin 0.50 (0.2-1.0) mg/dL AST 22 (13-39) U/L ALT 14 (7-52) U/L Alkaline Phosphatase 58 (34-104) U/L Troponin I 0.00 (<0.04) ng/mL Total Protein 6.9 (6.4-8.9) g/dL Albumin 4.0 (3.2-5.2) g/dL Globulin 2.9 (2-4) g/dL Albumin/Globulin Ratio 1.4 (1-3) TSH 2.78 (0.34-5.60) mcIU/mL Result Diagrams: 01/03/18 20:45 01/03/18 20:44 Lab Statement: Any lab studies that have been ordered have been reviewed, and results considered in the medical decision making process. - CT BRAIN CT CT Interpretation Completed By: Radiologist - 1. No acute intracranial abnormality. 2. No change from the comparison study. ED PHYSICIAN REVIEWED THIS RADIOLOGY REPORT. - EKG 2025 Cardiac Rate: NL - 61 BPM EKG Rhythm: Sinus Rhythm EKG Interpretation: Normal axis, normal interval, no ischemic changes Re-Evaluation - Re-Evaluation First Eval Re-Evaluation Time: 23:57 Change: Improved Comment: Patient is feeling much better. Headache Course/Dx - Course Course Of Treatment: A 62 y/o female accompanied by a friend presents to ED c/o headache and dizziness reaching 7/10 in severity. An EKG revealed NSR of 61 BPM , normal axis, normal interval, no ischemic changes. A Brain CT revealed 1. No acute intracranial abnormality. 2. No change from the comparison study. In the ED course, the patient recieved Toradol, Ativan, Antivert, Zofran and IV fluids. During reevaluation, the patient revealed she was feeling much better. Patient will be discharged with a diagnosis of benign positional vertigo, headache and anxiety. Patient will be sent home with Antivert. Patient is to follow up with PCP in 1-2 days. Patient is agreeable with this plan. - Diagnoses Provider Diagnoses: Benign positional vertigo, Headache, Anxiety Discharge - Sign-Out/Discharge Documenting (check all that apply): Patient Departure - DISCHARGE - Discharge Plan Condition: Stable Disposition: HOME Prescriptions: Meclizine TAB* [Antivert 12.5 TAB*] 25 mg PO TID PRN #20 tab PRN Reason: Dizziness Patient Education Materials: Migraine Headache (ED), Anxiety (ED), Vertigo (ED) Referrals: Teofilo Pruett MD [Primary Care Provider] - 2 Days Additional Instructions: FOLLOW UP WITH PRIMARY CARE IN 1-2 DAYS. TAKE MEDICATION PRESCRIBED. RETURN TO ED FOR ANY NEW OR WORSENING SYMPTOMS. - Attestation Statements Document Initiated by Scribe: Yes Documenting Scribe: Gomez Carrasco Provider For Whom Scribe is Documenting (Include Credential): Sue Wu MD Scribe Attestation: Gomez Roblero, scribed for Sue Wu MD on 01/04/18 at 0006.
[2018-01-03] MEDS ORDERED: NS 0.9% 1000 ML* 1,000 ML IV ONE (22:47)
[2018-01-03] MEDS ORDERED: LORazepam INJ* 2 MG/ML 1 ML VIAL IV PUSH ONE (22:47)
[2018-01-04] MEDS ORDERED: ALPRAZolam TAB* 0.25 MG PO ONE (00:28)
[2018-01-04] MEDS ORDERED: ALPRAZolam TAB* 0.5 MG ONE (00:32)
[2018-01-04 00:59] VITALS: BP 143/69
== END 2018-01-04 00:38 | disposition home or self-care (01) ==
LOC: ED 19:19
DX: R51 Headache (principal); H81.10 Benign paroxysmal vertigo, unspecified ear; F41.9 Anxiety disorder, unspecified; I10 Essential (primary) hypertension
CPT/HCPCS: 36415; 70450; 80053; 83605; 83735; 84443; 84484; 85025; 93005; 96361; 96374; 96375; 99283; A9270-GY; J1885; J2060; J2405

== ENCOUNTER 2019-01-21 18:56 | Emergency (ER) | payer MEDICARE ==
--- OUTSIDE RECORDS SUMMARY | 2019-01-21 19:09 | XMS REPORT | Continuity of Care Document ---
:1955 External Reference #:[id number] Author Name Dez William M.D. (transmitted by agent of provider Destiny Recinos) Address [address] [place] [id number] Care Team Providers Name Role Phone Teofilo Pruett MD - Endocrinology, Care Team Information Auricular Detoxification Specialist Diabetes & Metabolism Problems Active Problems Provider Date Aftercare For Healing Traumatic Des Selby M.D. Onset: 01/01/2015 Fracture Of Lower Leg Essential hypertension Jayjay Shelton M.D., [facility] Onset: 05/06/2016 Chest pain Jayjay Shelton M.D., [facility] Onset: 05/06/2016 Obesity Jayjay Shelton M.D., [facility] Onset: 05/15/2016 Difficulty breathing Rain Rubio DNP, RN, Onset: 05/11/2017 MOLDER MACHINE- Periodic limb movement disorder Rain Rubio DNP, RN, Onset: 05/11/2017 MOLDER MACHINE-BC Insomnia Rain Rubio DNP, RN, Onset: 05/11/2017 MOLDER MACHINE- Obstructive sleep apnea syndrome Rain Rubio DNP, RN, Onset: 05/25/2017 MOLDER MACHINE-BC Peroneal tendinitis, right leg Ayo Chavarria MD Onset: 09/20/2018 Localized, primary osteoarthritis Ayo Chavarria MD Onset: 11/26/2017 Social History Type Date Description Comments Sex Unknown Tobacco Use Start: Unknown Never Smoked Cigarettes Smoking Status Reviewed: 12/07/18 Never Smoked Cigarettes ETOH Use Drinks Alcoholic Beverages Rarely Tobacco Use Start: Unknown Patient has never smoked Recreational Drug Use Denies Drug Use Exercise Type/Frequency Exercises regularly Exercise Type/Frequency Exercises at a health club 4 times a week Allergies, Adverse Reactions, Alerts Description No Known Drug Allergies Medications Active Medications SIG Qnty Indications Ordering Provider Date Metformin HCL 1 by mouth once Unknown 1000mg daily Tablets Glipizide ER 1 by mouth every Unknown 10mg Tablets day ER 24HR Lisinopril 1 by mouth every Unknown 5mg Tablets day Medications Administered in Office Medication SIG Qnty Indications Ordering Provider Date Technetium TC 99M Tetrofosmin, Ica Nuclear Schedule 05/14/2016 Per Unit Dose Up To 40 Millicuries Injection Inj, Regadenoson, 0.1 MG Carl Hassan M.D. 05/13/2016 Injection Technetium TC 99M Tetrofosmin, Carl Hassan M.D. 05/13/2016 Per Unit Dose Up To 40 Millicuries Injection Immunizations Description No Information Available Vital Signs Date Vital Result Comment 12/07/2018 1:16pm Height 61 inches 5'1" Weight 194.00 lb BP Systolic 122 mmHg BP Diastolic 80 mmHg Respiratory Rate 18 /min Body Temperature 97.2 F Pain Level 6 BMI (Body Mass Index) 36.7 kg/m2 09/20/2018 2:00pm Height 61 inches 5'1" Weight 194.00 lb Heart Rate 80 /min BP Systolic 126 mmHg BP Diastolic 86 mmHg Respiratory Rate 18 /min Body Temperature 97.0 F Pain Level 6 BMI (Body Mass Index) 36.7 kg/m2 Results Description No Information Available Procedures Date Code Description Status 12/07/2018 53905 Inject/Drain Joint/Bursa Major W/O US Completed Medical Devices Description No Information Available Encounters Type Date Location Provider Dx Diagnosis Office Visit 09/20/2018 Orthopedic Ayo Chavarria, M19.071 Primary 1:[facility] osteoarthritis, right ankle and foot M76.71 Peroneal tendinitis, right leg Assessments Date Code Description Provider 12/07/2018 M17.11 Unilateral primary osteoarthritis, right knee Dez William M.D. 12/07/2018 M17.12 Unilateral primary osteoarthritis, left knee Dez William M.D. 09/20/2018 M19.071 Primary osteoarthritis, right ankle and foot Ayo Chavarria MD 09/20/2018 M76.71 Peroneal tendinitis, right leg Ayo Chavarria MD Plan of Treatment 12/07/2018 - Dez William M.D.M17.11 Unilateral primary osteoarthritis, right kneeFollow up:Follow up: As needed OK to do the knee exercises from therapy OK to try a sports brace Gentle knee exercises for bending, straightening, and lifting OK to use a cane or walking [id number] Unilateral primary osteoarthritis, left knee Functional Status Description No Information Available Mental Status Description No Information Available Referrals Description No Information Available
[2019-01-21] MEDS ORDERED: Ketorolac INJ* 30 MG/ML 1 ML VIAL IV ONE (21:27)
[2019-01-21] MEDS ORDERED: PROCHLORPERAZINE INJ 5 MG/ML 2 ML VIAL IV ONE (21:27)
[2019-01-21] MEDS ORDERED: NS 0.9% 1000 ML** 1,000 ML IV ONE (21:27)
[2019-01-21] MEDS ORDERED: diPHENhydraMINE IV* 50 MG/ML 1 ml VIAL (BENADRYL) IV ONE (21:27)
[2019-01-21] MEDS ORDERED: hydrALAZINE IV* 20 MG/ML VIAL IV SLOW PU ONE (21:29)
[2019-01-21 21:45] LABS: ABS Eosinophils 0.1 10^3/ul (0-0.6); ABS Lymphocytes 1.8 10^3/ul (1.0-4.8); ABS Monocytes 0.4 10^3/ul (0-0.8); ABS Neutrophils 2.6 10^3/ul (1.5-7.7); Eosinophil % 1.1 %; Hematocrit 39 % (35-47); Hemoglobin 13.4 g/dL (12.0-16.0); Mean Corpuscular HGB Conc 34 g/dL (31-36); Mean Corpuscular Hemoglobin 31 pg (27-31); Mean Corpuscular Volume 91 fL (80-97); Mean Platelet Volume 7.3 fL (7.4-10.4); Nucleated Red Blood Cells % 0.1; Platelet Count 213 10^3/uL (150-450); Red Blood Count 4.27 10^6 /uL (3.70-4.87); Red Cell Distribution Width 15 % (10-15); White Blood Count 4.9 10^3/uL (3.5-10.8)
[2019-01-21 22:01] LABS: Albumin 4.1 g/dL (3.2-5.2); Albumin/Globulin Ratio 1.5 (1-3); BUN/Creatinine Ratio 13.8 (8-20); Calcium 9.4 mg/dL (8.6-10.3); EGFR African American 72.3 (>60); EGFR Non-African American 59.8 (>60); Globulin 2.8 g/dL (2-4); Magnesium 1.8 mg/dL (1.9-2.7); Potassium 4.2 mmol/L (3.5-5.0); Total Bilirubin 0.5 mg/dL (0.2-1.0); Total Protein 6.9 g/dL (6.4-8.9)
[2019-01-21] MEDS ORDERED: Magnesium Sulfate 1 GM IV* 1 GM/100 ML BAG IV ONE (22:05)
--- NOTE | 2019-01-21 23:24 | ED ---
Headache - HPI Summary HPI Summary: 63 yo female presents to [facility] [place] [facility] with headache. She tells me that over the last 4 days she has had an intermittent headache that starts at the back of her head and goes to the top of her head to her forehead. Nothing seems to aggravate the pain. She took tylenol with no relief. Headache resolves spontaneously. She tells me that she started amlodipine for HTN about 2 weeks ago - did not take this today. She also mentions that she has a history of low magnesium and stopped taking her magnesium about 2 weeks ago due to GI issues with this. She took her BP prior to arrival and it was 130s/90s. She denies dizziness, vision changes, weakness, numbness, tingling, SOB, chest pain, palpitations, abdominal pain, n/v. - History Of Current Complaint Chief Complaint: EDHeadache Stated Complaint: "HEADACHE PER PT" Time Seen by Provider: 01/21/19 21:27 Hx Obtained From: Patient Onset/Duration: Gradual Onset - Allergies/Home Medications Allergies/Adverse Reactions: Allergies Allergy/AdvReac Type Severity Reaction Status Date / Time No Known Allergies Allergy Verified 01/21/19 19:03 Home Medications: Home Medications amLODIPine TAB* [Norvasc 5 mg TAB*] 5 mg PO DAILY 01/21/19 [History Confirmed ] PMH/Surg Hx/FS Hx/Imm Hx Endocrine/Hematology History: Reports: Hx Diabetes Cardiovascular History: Reports: Hx Hypertension Denies: Hx Pacemaker/ICD, Other Cardiovascular Problems/Disorders Respiratory History: Denies: Other Respiratory Problems/Disorders GI History: Denies: Other GI Disorders Sensory History: Reports: Hx Cataracts - taran, Hx Contacts or Glasses - glasses Denies: Hx Hearing Aid Opthamlomology History: Reports: Hx Cataracts - taran, Hx Contacts or Glasses - glasses Neurological History: Denies: Hx CVA, Hx Migraine, Other Neuro Impairments/Disorders Psychiatric History: Reports: Hx Anxiety - on meds, Hx Panic Disorder - a little nervous - Cancer History Cancer Type, Location and Year: denies - Surgical History Surgery Procedure, Year, and Place: pancreatic cyst, Hx Anesthesia Reactions: No Infectious Disease History: No Infectious Disease History: Denies: Hx Clostridium Difficile, Hx Hepatitis, Hx Human Immunodeficiency Virus (HIV), Hx of Known/Suspected MRSA, Hx Shingles, Hx Tuberculosis, Hx Known/ Suspected VRE, Hx Known/Suspected VRSA, History Other Infectious Disease, Traveled Outside the [place] in Last 30 Days - Family History Known Family History: Positive: Hypertension, Diabetes Negative: Cardiac Disease - Social History Lives: With Family Alcohol Use: Rare Substance Use Type: Reports: None Smoking Status (MU): Never Smoked Tobacco Review of Systems Constitutional: Negative Eyes: Negative ENT: Negative Cardiovascular: Negative Respiratory: Negative Gastrointestinal: Negative Genitourinary: Negative Musculoskeletal: Negative Skin: Negative Positive: Headache Psychological: Normal All Other Systems Reviewed And Are Negative: No Physical Exam - Summary Physical Exam Summary: GENERAL: NAD. WDWN. No pain distress. SKIN: No rashes, sores, ulcers, masses, lesions. HEENT: Head: AT/NC. Eyes: PERRLA. EOM intact. Conjunctiva clear without inflammation or discharge. Ears: Hearing grossly normal. TMs intact, no bulging, erythema, or edema. Nose: Nasal mucosa pink and moist. NTTP maxillary and frontal sinus. Throat: Posterior oropharynx without exudates, erythema, or tonsillar enlargement. Uvula midline. NECK: Supple. Nontender. FROM CHEST: CTAB. No r/r/w. No accessory muscle use. Breathing comfortably and in no distress. CV: RRR. Without m/r/g. Pulses intact. Brisk cap refill. ABDOMEN: Soft. NTTP. Bowel sounds present MSK: FROM in B/L UEs and LEs with symmetric strength. NEURO: A&Ox3. 3 word recall, remote, recent memory, ability to follow 2-step directions, and attention intact. CN: II: Peripheral pierre intact. Vision normal. III, IV, : EOMI. No nystagmus. PERRLA. V: Sensations intact and symmetric. Opens mouth and clenches teeth. VII: No facial asymmetry. Forehead wrinkles. Grins, shuts eyes, frowns, puffs cheeks. VIII: Hearing intact to finger rub. IX, X: Swallows and coughs. Uvula midline. XI: Shrugs shoulders. Turns head against resistance. XII: No tongue deviation Wiglag-ph-mpnt are intact. Gait with normal base. Romberg: maintains balance, no pronator drift. Normal speech. No facial drooping. PSYCH: Age appropriate behavior. Triage Information Reviewed: Yes Vital Signs On Initial Exam: Initial Vitals Temp Pulse Resp BP Pulse Ox 98.1 F 67 18 152/84 98 01/21/19 18:59 01/21/19 18:59 01/21/19 18:59 01/21/19 18:59 01/21/19 18:59 Vital Signs Reviewed: Yes Diagnostics - Vital Signs Vital Signs Temp Pulse Resp BP Pulse Ox 01/21/19 22:37 73 18 150/93 99 01/21/19 22:08 78 20 176/78 100 01/21/19 22:03 81 27 100 01/21/19 21:24 67 181/91 100 01/21/19 21:05 97.5 F 67 18 207/90 98 01/21/19 18:59 98.1 F 67 18 152/84 98 - Laboratory Lab Results: Lab Results 01/21/19 01/21/19 01/21/19 Range/Units 21:39 21:39 21:39 WBC 4.9 (3.5-10.8) 10^3/uL RBC 4.27 (3.70-4.87) 10^6 /uL Hgb 13.4 (12.0-16.0) g/dL Hct 39 (35-47) % MCV 91 (80-97) fL MCH 31 (27-31) pg MCHC 34 (31-36) g/dL RDW 15 (10-15) % Plt Count 213 (150-450) 10^3/uL MPV 7.3 L (7.4-10.4) fL Neut % (Auto) 52.5 % Lymph % (Auto) 37.0 % Ballard % (Auto) 9.0 % Eos % (Auto) 1.1 % Baso % (Auto) 0.4 % Absolute Neuts (auto) 2.6 (1.5-7.7) 10^3/ul Absolute Lymphs (auto) 1.8 (1.0-4.8) 10^3/ul Absolute Monos (auto) 0.4 (0-0.8) 10^3/ul Absolute Eos (auto) 0.1 (0-0.6) 10^3/ul Absolute Basos (auto) 0.0 (0-0.2) 10^3/ul Absolute Nucleated RBC 0.0 10^3/ul Nucleated RBC % 0.1 Sodium 134 L (135-145) mmol/L Potassium 4.2 (3.5-5.0) mmol/L Chloride 102 (101-111) mmol/L Carbon Dioxide 26 (22-32) mmol/L Anion Gap 6 (2-11) mmol/L BUN 13 (6-24) mg/dL Creatinine 0.94 (0.51-0.95) mg/dL Est GFR ( Amer) 72.3 (>60) Est GFR (Non-Af Amer) 59.8 (>60) BUN/Creatinine Ratio 13.8 (8-20) Glucose 134 H (70-100) mg/dL Lactic Acid 0.7 (0.5-2.0) mmol/L Calcium 9.4 (8.6-10.3) mg/dL Magnesium 1.8 L (1.9-2.7) mg/dL Total Bilirubin 0.50 (0.2-1.0) mg/dL AST 19 (13-39) U/L ALT 16 (7-52) U/L Alkaline Phosphatase 62 (34-104) U/L Total Protein 6.9 (6.4-8.9) g/dL Albumin 4.1 (3.2-5.2) g/dL Globulin 2.8 (2-4) g/dL Albumin/Globulin Ratio 1.5 (1-3) Result Diagrams: 01/21/19 21:39 01/21/19 21:39 Lab Statement: Any lab studies that have been ordered have been reviewed, and results considered in the medical decision making process. - CT Brain CT Interpretation Completed By: Radiologist Summary of CT Findings: IMPRESSION: No acute intracranial findings. National Institutes Of Health - NIH Scale Level of Consciousness: Alert/Keenly Responsive Ask Patient the Month and His/Her Age: Both Correct Ask Pt to Open/Close Eyes and Documentation Nurse/Release Non-Paretic Hand: Both Correctly Best Gaze (Only Horizontal Eye Movement): Normal Visual Field Testing: No Visual Loss Facial Paresis-Pt to Smile & Close Eyes or Grimace Symmetry: Normal/Symmetrical Motor Function - Right Arm: No Drift-Holds 10 Seconds Motor Function - Left Arm: No Drift-Holds 10 Seconds Motor Function - Right Leg: No Drift-Holds 10 Seconds Motor Function - Left Leg: No Drift-Holds 10 Seconds Limb Ataxia-Must be out of Proportion to Weakness Present: Absent Sensory (Use Pinprick to Test Arms/Legs/Trunk/Face): Normal Best Language (Describe Picture, Name Items): No Aphasia Dysarthria (Read Several Words): Normal Extinction and Inattention: No Abnormality Total Score: 0 Re-Evaluation - Re-Evaluation First Eval Re-Evaluation Time: 23:59 Change: Improved Comment: Headache resolved. Pt feels much better. Reviewed labs and imaging results. Headache Course/Dx - Course Course Of Treatment: Labs revealed mildly low mag. In the ED course pt was given 1L NS, 1gm mag to replete, toradol/compazine/benadryl for her headache, and hydralazine for her elevated BP. Her blood pressure significantly improved. Her CT was normal. After replacing mag she reported her headache had resolved and she felt much improved. She is asymptomatic and is asking to go home. She has no evidence of end organ damage of HTN emergency at this time. I advised her to continue her home medications as prescribed and to restart her mag supplement. F/u with PCP within 1 week for a recheck of her symptoms. Return to ED if symptoms return. - Diagnoses Provider Diagnoses: Headache, Hypertension, Hypomagnesemia Discharge ED - Sign-Out/Discharge Documenting (check all that apply): Patient Departure Patient Received Moderate/Deep Sedation with Procedure: No - Discharge Plan Condition: Stable Disposition: HOME Patient Education Materials: Acute Headache (DC), Hypertension (ED), Hypomagnesemia (ED) Referrals: Teofilo Pruett MD [Primary Care Provider] - 3 Days Additional Instructions: If you develop a fever, shortness of breath, chest pain, new or worsening symptoms - please call your PCP or go to the ED immediately. Your blood pressure was high at todays visit. Please see your primary provider within 4 weeks for recheck and re-evaluation. Your magnesium level was mildly low at today's visit. I recommend that you schedule a follow up appointment with your primary doctor within 5 days for a recheck of your symptoms and to discuss taking a daily magnesium supplement. - Billing Disposition and Condition Condition: STABLE Disposition: Home - Attestation Statements Provider Attestation: I was available for consultation for this patient. I did not evaluate the patient or participate in any medical decision making or disposition decisions unless I am specifically named in the chart as having consulted on the patient. If I have consulted on the patient, please see my own ED note on the patient encounter. Austin Arnett MD
[2019-01-21 23:43] LABS: Urine Appearance Clear; Urine Bilirubin Negative (Negative); Urine Blood Negative (Negative); Urine Color Straw; Urine Glucose Negative (Negative); Urine Ketones Negative (Negative); Urine Nitrite Negative (Negative); Urine Protein Negative (Negative); Urine Specific Gravity 1.006 (1.010-1.030); Urine Urobilinogen Negative (Negative)
[2019-01-22 00:21] VITALS: BP 153/80
== END 2019-01-22 00:21 | disposition home or self-care (01) ==
LOC: ED 18:56
DX: I10 Essential (primary) hypertension (principal); E83.42 Hypomagnesemia; E11.9 Type 2 diabetes mellitus without complications; F41.9 Anxiety disorder, unspecified; Z79.84 Long term (current) use of oral hypoglycemic drugs; Z79.899 Other long term (current) drug therapy
CPT/HCPCS: 36415; 70450; 80053; 81003; 83605; 83735; 85025; 96361; 96365; 96375; 99283; J0360; J0780; J1200; J1885; J3475

== ENCOUNTER 2019-05-16 06:31 | Inpatient (IN) | payer MEDICARE ==
--- NOTE | 2019-05-09 10:15 | HP ---
AMENDED REPORT NOW INCLUDES DESIGNATED COSIGNER HISTORY AND PHYSICAL: DATE OF ADMISSION/SURGERY: 05/16/19 DATE OF OFFICE VISIT: 05/08/19 SURGEON: Monique Gore MD * (DICTATED BY CARLOS MANUEL BARRON) PROCEDURE: Left total knee arthroplasty. PRIMARY CARE PHYSICIAN: Dr. Teofilo Pruett CHIEF COMPLAINT: Left knee pain. HISTORY OF PRESENT ILLNESS: Ms. Garcia is a 64-year-old female with severe end- stage osteoarthritis of the left knee. She has failed conservative treatment and elected to proceed with a left total knee arthroplasty. PAST MEDICAL HISTORY: Hypertension, diabetes, anxiety, and sleep apnea. PAST SURGICAL HISTORY: Cyst removal from her pancreas. CURRENT MEDICATIONS: 1. Metformin 1000 mg once a day. 2. Glipizide 10 mg daily. 3. Lisinopril 5 mg a day. 4. Pioglitazone 30 mg daily. 5. Amiloride 5 mg daily. 6. Clonazepam as needed. ALLERGIES: No known drug allergies. FAMILY HISTORY: Cancer, diabetes. SOCIAL HISTORY: She is a 64-year-old female. She lives with her . She does not smoke or use drugs. She has occasional alcohol. REVIEW OF SYSTEMS: A complete 14-point review of systems reviewed with the patient, positive for diabetes and some occasional palpitations secondary to anxiety. She denies history of DVT, PE, hepatitis, HIV, or anesthesia problems. PHYSICAL EXAMINATION GENERAL: She is well developed, well nourished, in no acute distress. VITAL SIGNS: She stands 61 inches tall, weighs 194 pounds. Her blood pressure is 128/78, her heart rate is 60. HEENT: Normocephalic, atraumatic. NECK: Supple. No palpable lymph nodes. CARDIO: Regular rate and rhythm. Strong S1, S2. PULMONARY: Lungs are clear to auscultation bilaterally. ABDOMEN: Soft, nontender, nondistended. NEUROLOGIC: She is alert and oriented x3. MUSCULOSKELETAL: Left lower extremity: The skin is intact. There are no open wounds or abrasions. There is a moderate effusion of the left knee joint. Some tenderness along the medial and lateral joint. She has decreased range of motion of the left knee. She is able to dorsiflex and plantarflex. She has a 2 + dorsalis pedis pulses. ASSESSMENT AND PLAN: Ms. Garcia is a 64-year-old female with severe end-stage osteoarthritis of the left knee. She has failed conservative treatment and elected to proceed with a left total knee arthroplasty. The surgery is scheduled for 05/16/[address] Gore discussed the risks and benefits of the surgery at today's visit and all of her questions were answered. She will follow up with Dr. Gore 2 weeks after the surgery. CARLOS MANUEL BARRON [id number]/[facility] [place] #: [id number] MTDD
[~2019-05-16 06:31] MED LIST changes: -Acetaminophen TAB* 325 MG PO PRN; -Buffered Lidocaine 0.9% SYRIN* 5 ML/SYR SYRINGE INTRADERM ONE; +Buffered Lidocaine 1% SYRIN* 1 ML/SYRINGE INTRADERM ONE; -Cyclopentolate 1% OPTH.SOL* 2 ML BTL ONE; -Ketorolac 0.5% OPHTH (NF) 0.5 % 5 ML BTL ONE; +Lactated Ringers 1000 ML Bag* 1,000 ML IV SCH; -Lidocaine 1% MPF* 2 ML VIAL ONE; -Lidocaine 2% EPI 1:200000 MPF*10-20 ML VIAL ONE; -Neomycin/Polymy/Dex OPTH.SUSP* MAXITROL 0.1% 5 ML ONE; -Phenylephrine 2.5% OPTH.SOL* 2 ML BTL ONE; -Povidone Iodine 5% OPTH* 30 ML BTL ONE; -Proparacaine 0.5% OPHTH.SOL* 15 ML BTL ONE; +Tranexamic Acid 1,000 MG in NS 0.9% 50 ML* (outpatient use) IV SCH; -acetaZOLAMIDE TAB* 250 MG ONE
--- OUTSIDE RECORDS SUMMARY | 2019-05-16 06:34 | XMS REPORT | Continuity of Care Document ---
:1955 External Reference #:[id number] Author Name Aimee Champagne O.D. Address [address] [place] [id number] Care Team Providers Name Role Phone Teofilo Pruett M.D. - Endocrinology, Care Team Information Sharples Machine Operator [phone] Diabetes & Metabolism Problems Active Problems Provider Date Headache Onset: Type 2 diabetes mellitus Onset: Essential hypertension Onset: Nuclear senile cataract Winston Curtis M.D. Onset: 06/23/2016 Tear film insufficiency Winston Crutis M.D. Onset: 06/23/2016 Hypermetropia Winston Curtis M.D. Onset: 06/23/2016 Presbyopia Winston Curtis M.D. Onset: 06/23/2016 Anxiety Onset: Benign hypertension Onset: Combined form of senile cataract Leopoldo Cochran M.D. Onset: 08/03/2017 Presence of intraocular lens Leopoldo Cochran M.D. Onset: 08/19/2017 Vitreous degeneration Aimee Champagne O.D. Onset: 02/20/2019 Social History Type Date Description Comments Sex Unknown ETOH Use Denies alcohol use Recreational Drug Use Denies Drug Use Tobacco Use Start: Unknown Patient has never smoked Smoking Status Reviewed: 04/03/19 Patient has never smoked Allergies, Adverse Reactions, Alerts Description No Known Drug Allergies Medications Active Medications SIG Qnty Indications Ordering Provider Date Systane as needed Aimee Champagne, 11/09/2017 0.4-0.3% Solution O.D. Lisinopril Unknown 40mg Tablets Glipizide ER Unknown 2.5mg Tablets ER 24HR Metformin HCL Unknown 1000mg Tablets Pioglitazone HCL Teofilo PruettMary 30mg Tablets Escitalopram Oxalate Teofilo PruettFlorentin. 10mg Tablets Clonazepam Unknown 0.5mg Tablets Amiloride HCL Teofilo PruettMary 5mg Tablets Immunizations Description No Information Available Vital Signs Description No Information Available Results Description No Information Available Procedures Date Code Description Status 02/20/2019 89638 Est Patient Comprehensive Exam Completed Medical Devices Description No Information Available Encounters Description No Information Available Assessments Date Code Description Provider 04/03/2019 H43.813 Vitreous degeneration, bilateral Aimee Champagne O.D. 04/03/2019 H04.123 Dry eye syndrome of bilateral lacrimal Aimee Champagne O.D. glands 04/03/2019 Z96.1 Presence of intraocular lens Aimee Champagne O.D. 04/03/2019 E11.9 Type 2 diabetes mellitus without Aimee Champagne O.D. complications 02/20/2019 H43.813 Vitreous degeneration, bilateral Aimee Champagne O.D. 02/20/2019 Z96.1 Presence of intraocular lens Aimee Champagne O.D. 02/20/2019 H04.123 Dry eye syndrome of bilateral lacrimal Aimee Champagne O.D. glands Plan of Treatment 04/03/2019 - Aimee Champagne O.D.H43.813 Vitreous degeneration, bilateralComments:You have a Posterior Vitreous Detachment. Please read the pamphlet that was given to you. If you have any changes in your floaters or flashing lights, please contact this office.Follow up:1 Year Follow Up You can expect to have your eyes dilated at your next visit. If Dr. Champagne orders any additional testing, it may require extra time. We recommend that you bring sunglasses, as dilation drops often make you light sensitive until they wear off. We always recommend you bring someone to drive you home if you are uncomfortable driving with your eyes dilated. If you have any questions before your next visit, feel free to call our office at .H04.123 Dry eye syndrome of bilateral lacrimal glandsComments:CONTINUE TO USE ARTIFICAL TEARS NEEDEDCONTINUE TO USE A HOT COMPRESS FOR 5-10 MINUTES ONCE A DAYZ96.1 Presence of intraocular lensComments:The artificial lens implants in both eyes appear to be stable at this time.E11.9 Type 2 diabetes mellitus without complications Functional Status Description No Information Available Mental Status Description No Information Available Referrals Description No Information Available
--- OUTSIDE RECORDS SUMMARY | 2019-05-16 06:34 | XMS REPORT | Continuity of Care Document ---
:1955 External Reference #:[id number] Author Name Monique Gore M.D. (transmitted by agent of provider Angie Mooney) Address [address] [place] [id number] Care Team Providers Name Role Phone Teofilo Pruett MD - Endocrinology, Care Team Information Aquatic Habitat Biologist [phone] Diabetes & Metabolism Problems Active Problems Provider Date Aftercare For Healing Traumatic Des Selby M.D. Onset: 01/01/2015 Fracture Of Lower Leg Essential hypertension Jayjay Shelton M.D., [facility] Onset: 05/06/2016 Chest pain Jayjay Shelton M.D., [facility] Onset: 05/06/2016 Obesity Jayjay Shelton M.D., [facility] Onset: 05/15/2016 Difficulty breathing Rain Rubio DNP RN, Onset: 05/11/2017 DREDGE MECHANIC- Periodic limb movement disorder Rain Rubio DNP, RN, Onset: 05/11/2017 DREDGE MECHANIC-BC Insomnia Rain Rubio DNP, RN, Onset: 05/11/2017 DREDGE MECHANIC- Obstructive sleep apnea syndrome Rain Rubio DNP, RN, Onset: 05/25/2017 DREDGE MECHANIC-BC Peroneal tendinitis, right leg Ayo Chavarria MD Onset: 09/20/2018 Localized, primary osteoarthritis Ayo Chavarria MD Onset: 11/26/2017 Social History Type Date Description Comments Sex Unknown Tobacco Use Start: Unknown Never Smoked Cigarettes Smoking Status Reviewed: 04/12/19 Never Smoked Cigarettes ETOH Use Drinks Alcoholic [...] by mouth every Unknown 5mg Tablets day Pioglitazone HCL 1 by mouth every Unknown 30mg day Tablets Amiloride HCL 1 tab by mouth Unknown 5mg Tablets every daily Medications Administered in Office Medication SIG Qnty Indications Ordering Provider Date Depomedrol 40MG Dez William M.D. 12/07/2018 Injection Depomedrol 40MG Dez William M.D. 12/07/2018 Injection Technetium TC 99M Tetrofosmin, Ica Nuclear Schedule 05/14/2016 Per Unit Dose Up To 40 Millicuries Injection Inj, Regadenoson, 0.1 MG Carl Hassan M.D. 05/13/2016 Injection Technetium TC 99M Tetrofosmin, Carl Hassan M.D. 05/13/2016 Per Unit Dose Up To 40 Millicuries Injection Immunizations Description No Information Available Vital Signs Date Vital Result Comment 04/12/2019 9:27am Height 61 inches 5'1" Weight 194.00 lb Heart Rate 60 /min BP Systolic Sitting 138 mmHg BP Diastolic Sitting 90 mmHg Respiratory Rate 16 /min Pain Level 8 BMI (Body Mass Index) 36.7 kg/m2 12/07/2018 1:16pm Height 61 inches 5'1" Weight 194.00 lb BP Systolic 122 mmHg BP Diastolic 80 mmHg Respiratory Rate 18 /min Body Temperature 97.2 F Pain Level 6 BMI (Body Mass Index) 36.7 kg/m2 Results Description No Information Available Procedures Date Code Description Status 12/20/2018 397215091 Bone Mineral Density Test Completed 12/07/2018 45615 Inject/Drain Joint/Bursa Major W/O US Completed Medical Devices Description No Information Available Encounters Type Date Location Provider Dx Diagnosis Office Visit 12/07/2018 [facility] Dez William M.D. M17.11 Unilateral primary 1:30p at [place] osteoarthritis, right knee M17.12 Unilateral primary osteoarthritis, left knee Assessments Date Code Description Provider 04/12/2019 M17.0 Bilateral primary osteoarthritis of knee Monique Gore M.D. 04/12/2019 M25.562 Pain in left knee Monique Gore M.D. 04/12/2019 M25.561 Pain in right knee Monique Gore M.D. 04/12/2019 M25.462 Effusion, left knee Monique Gore M.D. 04/12/2019 M25.461 Effusion, right knee Monique Gore M.D. 12/07/2018 M17.11 Unilateral primary osteoarthritis, right knee Dez William M.D. 12/07/2018 M17.12 Unilateral primary osteoarthritis, left knee Dez William M.D. Plan of Treatment 04/12/2019 - Monique Gore M.D.M17.0 Bilateral primary osteoarthritis of kneeFollow up:Follow up: 7-10 days before aurujzmJ07.562 Pain in left kneeM25.561 Pain in right kneeM25.462 Effusion, left kneeM25.461 Effusion, right knee Functional Status Description No Information Available Mental Status Description No Information Available Referrals Description No Information Available
--- OUTSIDE RECORDS SUMMARY | 2019-05-16 06:34 | XMS REPORT | Continuity of Care Document ---
:1955 External Reference #:[id number] Author Name Monique Gore M.D. (transmitted by agent of provider Lauryn Ramos) Address [address] [place] [id number] Care Team Providers Name Role Phone Teofilo Pruett MD - Endocrinology, Care Team Information [employer] Diabetes & Metabolism Problems Active Problems Provider Date Aftercare For Healing Traumatic Des Selby M.D. 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 [employer]EM[employer]-BC Insomnia Rain Rubio DNP, RN, Onset: 05/11/2017 [employer]EM[employer]-BC Obstructive sleep apnea syndrome Rain Rubio DNP, RN, Onset: 05/25/2017 [employer]-BC Peroneal tendinitis, right leg Ayo Chavarria MD Onset: 09/20/2018 Localized, primary osteoarthritis Ayo Chavarria MD Onset: 11/26/2017 Social History Type Date Description Comments Sex Unknown Tobacco Use Start: Unknown Never Smoked Cigarettes Smoking Status Reviewed: 05/08/19 Never Smoked Cigarettes ETOH Use Drinks Alcoholic [...] by mouth Unknown 5mg Tablets every daily Zolpidem Tartrate take 1 tablet by Unknown 5mg mouth at bedtime Tablets for 10 days Medications Administered in Office Medication SIG Qnty [...] Available Vital Signs Date Vital Result Comment 05/08/2019 9:53am Height 61 inches 5'1" Weight 195.00 lb Heart Rate 60 /min BP Systolic 128 mmHg BP Diastolic 78 mmHg Respiratory Rate 16 /min Pain Level 9 BMI (Body Mass Index) 36.8 kg/m2 04/12/2019 9:27am Height 61 inches 5'1" Weight 194.00 lb Heart Rate 60 /min BP Systolic Sitting 138 mmHg BP Diastolic Sitting 90 mmHg Respiratory Rate 16 /min Pain Level 8 BMI (Body Mass Index) 36.7 kg/m2 Results Description No Information Available Procedures Date Code Description Status 12/20/2018 032504558 Bone Mineral Density Test Completed 12/07/2018 68374 Inject/Drain Joint/Bursa Major W/O US Completed Medical Devices Description No Information Available Encounters Type Date Location Provider Dx Diagnosis Office Visit 04/12/2019 [facility] Monique Gore, M17.0 Bilateral primary 9:30a at [place] osteoarthritis of knee M25.562 Pain in left knee M25.561 Pain in right knee M25.462 Effusion, left knee M25.461 Effusion, right knee Office Visit 12/07/2018 [facility] William, M17.11 Unilateral primary 1:30p Orthopedics at .[place] osteoarthritis, right [place] knee M17.12 Unilateral primary osteoarthritis, left knee Assessments Date Code Description Provider 05/08/2019 M17.0 Bilateral primary osteoarthritis of knee Monique Gore M.D. 05/08/2019 M25.562 Pain in left knee Monique Gore M.D. 05/08/2019 M25.462 Effusion, left knee Monique Gore M.D. 05/08/2019 M17.12 Unilateral primary osteoarthritis, left knee Monique Gore M.D. 04/12/2019 M17.0 Bilateral primary osteoarthritis of knee [...] knee Dez William M.D. Plan of Treatment Future Appointment(s):05/16/2019 8:30 am - Monique Gore M.D. at [facility] at [id number]/08/2019 - Monique Gore M.D.M17.0 Bilateral primary osteoarthritis of kneeFollow up:Follow up: 2 weeks after gmpwyghV26.562 Pain in left kneeM25.462 Effusion, left kneeM17.12 Unilateral primary osteoarthritis , left knee Functional Status Description No Information Available Mental Status Description No Information Available Referrals Description No Information Available
[2019-05-16] MEDS ORDERED: ceFAZolin 2 GM PREMIX in ORs 2 GM/50 ML BAG ONE (06:41)
[2019-05-16] MEDS ORDERED: Ondansetron INJ* 2 MG/ML VIAL IV PRN ×2 (08:07→11:55)
[2019-05-16] MEDS ORDERED: Naloxone* 0.4 MG/ML 1 ML VIAL IV PRN (08:07)
[2019-05-16] MEDS ORDERED: HYDROmorphone INJ1* 1 MG/ML SYRINGE IV PRN (08:07)
[2019-05-16] MEDS ORDERED: ROPIVACAINE 5 MG/ML 30 ML BTL (0.5%) ONE (08:13)
[2019-05-16] MEDS ORDERED: Magnesium Hydroxide LIQ* 30 ML UDC PO PRN (11:55)
[2019-05-16] MEDS ORDERED: Ondansetron TAB* 4 MG PO PRN (11:55)
[2019-05-16] MEDS ORDERED: Ondansetron ODT TAB* 4 MG PO PRN (11:55)
[2019-05-16] MEDS ORDERED: diPHENhydraMINE IV* 50 MG/ML 1 ml VIAL (BENADRYL) IV PRN (11:55)
[2019-05-16] MEDS ORDERED: diPHENhydraMINE PO* 25 MG PO PRN (11:55)
[2019-05-16] MEDS ORDERED: Polyethylene Glycol 3350* 17 GM PACKET PO PRN (11:55)
[2019-05-16] MEDS ORDERED: clonazePAM TAB(*) 0.5 MG PO PRN (11:58)
[2019-05-16] MEDS ORDERED: Ondansetron INJ* 2 MG/ML VIAL ONE (12:08)
[2019-05-16] MEDS ORDERED: HYDROmorphone INJ1* 1 MG/ML SYRINGE ONE (12:14)
--- NOTE | 2019-05-16 12:49 | PN ---
Progress Note - Progress Note Date of Service: 05/16/19 Note: patient resting comfortably in recovery. pain well controlled. able to DF/PF, 2 + DP pulse and intact sensation. dressing c/d/i
[2019-05-16] MEDS ORDERED: clonazePAM TAB(*) 0.5 MG PO ONE (13:10)
[2019-05-16] MEDS: oxyCODONE/Acetamin 5/325 MG* TAB PO PRN ×2 (15:04→22:01)
[2019-05-16] MEDS: Lactated Ringers 1000 ML Bag* 1,000 ML IV SCH (15:07)
[2019-05-16] MEDS: Acetaminophen TAB* 325 MG PO SCH ×2 (15:08→22:05)
[2019-05-16] MEDS: ceFAZolin 1 GM ADVAN(*) 1 GM in NS 0.9% 50 ML* 50 ML IVPB SCH (16:37)
--- NOTE | 2019-05-16 17:13 | OP ---
Operative Report - Blank - Operative Report Date of Operation: 05/16/19 Note: JANI ANDREW 1955 Date of Surgery: 05/16/19 Monique Gore MD Net Front End Developer: Wyatt HOROWITZ did help throughout the procedure with preparation of the knee, wound retraction, manipulation of the knee, and wound closure. Anesthesiologist: Dr. Rios Anesthesia Type: Spinal Preoperative Diagnosis: Left severe degenerative osteoarthritis of the knee Postoperative Diagnosis: As above Procedure Performed: Left Total Knee Arthroplasty Tourniquet time: 65 minutes Complications: None Specimen: Bone and cartilage from the left knee joint sent to pathology. Hardware Used: Cemented Rasheed and Nephew total knee hardware was used - For the femur a size 5 narrow left oxinium legion posterior stabilized femoral component , for the tibia a size 3 left fernando II tibial baseplate, for the insert a size 9mm 3-4 posterior stabilized articular polyethylene insert, and for the patella a size 32 3-peg all poly patella. The Yozonsio robotic navigation system was used. Brief History/Indication: JANI ANDREW was known in clinic and had a history of severe left knee pain and swelling. She failed conservative treatment with anti- inflammatories, pain pills, intra-articular injections and physical therapy. She elected to undergo left total knee arthroplasty due to continued pain and decreased quality of life. Radiographs showed severe end stage osteoarthritis of the knee with bone on bone contact. Informed consent was obtained from the patient. She understood the risks of surgery included but were not limited to: bleeding, infection, damage to nearby structures, intraoperative fracture, nerve palsy, failure of the hardware, early loosening, knee stiffness or loss of motion, anesthesia complications, stroke, heart attack, blood clot and . She requested the Navio robotic system to be used and accepted the pin site risks of fracture and infection. She wished to proceed. Intra-Operative Findings: Intraoperatively the patient was noted to have severe loss of cartilage in all 3 compartments of the knee. Description of the Procedure: JANI ANDREW was identified in the preanesthesia unit. Her left knee was marked as the correct operative side. Informed consent was signed and placed in the chart. The patient was taken to the operating room and placed under anesthesia without complication. A waters catheter was placed. A tourniquet was placed on the left thigh. The left lower extremity was prepped and draped in the usual sterile fashion. Preoperative time-out was made to correctly identify the patient, side and site. Appropriate intraoperative antibiotics were given within one hour of incision. Tourniquet was inflated. A midline incision was made and carried sharply down to the extensor mechanism. A new 10 blade was used to make a standard medial parapatellar arthrotomy. The patella was subluxed laterally. Electrocautery was used to dissect soft tissue off the superomedial tibia to the midsagittal plane. The knee was flexed up. The anterior horn of the lateral meniscus and the ACL/PCL were sharply incised. The two checkpoint screws were placed and the four pins were placed. The arrays were attached and the knee anatomy was carefully mapped using the Sandglaz robotic system. The hardware size and placement was decided upon using the Sandglaz system. The robotic nolvia was used to make the distal femoral cut. The external rotation guide was pinned on the distal femur and the distal femur was sized to a size 5. The size 5 multi-cutting jig was pinned on the distal femur. The oscillating saw was used to make the appropriate 4 chamfer cuts. Next the PCL was completely released. The extramedullary tibial cutting guide was pinned on the proximal tibia and the Navio angle guide was used to choose the cutting angle. The oscillating saw was used to make the proximal tibial cut perpendicular to the mechanical axis of the tibia. The bone was carefully removed. The knee was brought out into full extension. The spacer block was placed and had excellent fit with the knee in full extension. The medial and lateral ligaments were well balanced. The flexion and extension gaps were well balanced. The knee was flexed up. Lamina boat hand was placed both medially and laterally. Any remaining meniscus was removed with electrocautery. Curved osteotome was used to remove any posterior osteophytes. The tibial tray and drop asha were placed and confirmed a satisfactory tibial cut. The size 5 left femoral trial was impacted onto the distal femur. This trial had excellent fit and stability. The box for the posterior stabilized implant was prepared using a box cut osteotome and a reamer. Next a tibial tray trial and 9 mm insert trial was placed. The knee was taken through a range of motion and had full extension to 130 degrees of flexion. Patellofemoral tracking was satisfactory. The final Navio data was collected. The two screws and the four pins were carefully removed. The patella was inverted and sized to a size 32. Three peg holes were drilled through the size 32 drill guide. The trial patella was placed and the knee was taken through a range of motion. There was satisfactory patellofemoral tracking. All trials were removed. The tibia was subluxed anteriorly and sized to a size 3. The proximal tibial was prepared with a size 3 keel punch. All bony cut surfaces were irrigated with sterile saline and dried. Final implants were cemented into place starting with the tibia, followed by the femur, and last the patella. A 9 mm insert trial was placed and the knee was brought into full extension. Tourniquet was turned down and the knee was copiously irrigated with sterile saline. Electrocautery was used to obtain meticulous hemostasis. Once the cement had fully cured, the insert trial was removed. Any excess cement was removed from around the hardware and capsule. Final insert chosen was a 9 mm posterior stabilized Fernando II articular insert size 3-4. Stability of the insert was checked and noted to be stable. The extensor mechanism was closed using number 1 vicryls. The rest of the incision was closed in a layered fashion using 0 and 2-0 vicryls. The skin was closed using 3-0 nylon suture. Sterile xeroform, 4x4s and webril were used to cover the incision. Vazquez wrap and cold pack were used to cover the dressings. The patients anesthesia was reversed without difficulty. She was taken to the PACU in stable condition. Intended weight-bearing will be as tolerated.
[2019-05-16] MEDS ORDERED: NS 0.9% 250 ML* 250 ML IV ONE (18:00)
[2019-05-16] MEDS ORDERED: amLODIPine TAB* 5 MG PO SCH (18:00)
[2019-05-16] MEDS: traMADol TAB* 50 MG PO PRN (18:13)
[2019-05-16] MEDS: metFORMIN* 1,000 MG TAB PO SCH (18:25)
[2019-05-16] MEDS: glipiZIDE TAB.XL* 2.5 MG PO SCH (18:25)
[2019-05-16] MEDS: Docusate CAP* 100 MG PO SCH (19:29)
[2019-05-16] MEDS: Cyclobenzaprine TAB* 10 MG PO PRN (19:29)
[2019-05-16] MEDS: Magnesium Hydroxide LIQ* 30 ML UDC PO SCH (19:30)
[2019-05-16] MEDS: oxyCODONE TAB* 5 MG TAB PO PRN (19:30)
[2019-05-16] MEDS: Morphine INJ* 2 MG/ML 1 ML SYRINGE (TWO MG - NEW SYRINGE VERSION) IV PRN (20:18)
[2019-05-17] MEDS: traMADol TAB* 50 MG PO PRN (00:51)
[2019-05-17] MEDS: ceFAZolin 1 GM ADVAN(*) 1 GM in NS 0.9% 50 ML* 50 ML IVPB SCH ×2 (00:52→08:22)
[2019-05-17] MEDS: Lactated Ringers 1000 ML Bag* 1,000 ML IV SCH (00:55)
[2019-05-17] MEDS: oxyCODONE TAB* 5 MG TAB PO PRN ×4 (03:42→20:03)
[2019-05-17] MEDS: Cyclobenzaprine TAB* 10 MG PO PRN (03:43)
[2019-05-17] MEDS: oxyCODONE/Acetamin 5/325 MG* TAB PO PRN ×3 (05:32→17:51)
[2019-05-17] MEDS: Acetaminophen TAB* 325 MG PO SCH ×3 (05:35→22:09)
[2019-05-17 05:57] LABS: Hematocrit 31 % (35-47); Hemoglobin 10.7 g/dL (12.0-16.0); Mean Platelet Volume 7.6 fL (7.4-10.4); Platelet Count 142 10^3/uL (150-450)
[2019-05-17 06:16] LABS: BUN/Creatinine Ratio 18.5 (8-20); Calcium 8.3 mg/dL (8.6-10.3); EGFR African American 85.6 (>60); EGFR Non-African American 70.7 (>60); Potassium 4.4 mmol/L (3.5-5.0)
[2019-05-17] MEDS: Magnesium Hydroxide LIQ* 30 ML UDC PO SCH ×2 (08:20→20:40)
[2019-05-17] MEDS: Apixaban* 2.5 MG TAB PO SCH ×2 (08:21→20:40)
[2019-05-17] MEDS: Docusate CAP* 100 MG PO SCH ×2 (08:21→20:40)
[2019-05-17] MEDS: Pioglitazone TAB* 30 MG PO SCH (08:22)
[2019-05-17] MEDS: Vitamin THERAPEUTIC TAB PO SCH (08:22)
[2019-05-17] MEDS: Morphine INJ* 2 MG/ML 1 ML SYRINGE (TWO MG - NEW SYRINGE VERSION) IV PRN (08:22)
[2019-05-17] MEDS: Lisinopril TAB* 5 MG PO SCH (08:22)
--- NOTE | 2019-05-17 08:51 | PN ---
Subjective - Subjective Reason for Note: Progress Note History: She is day 1 post left total knee arthroplasty. She had some nausea and vomited yesterday x 1. She had a poor appetite this morning. Her pain is 5/10 sitting and unbearable when she stood yesterday. During that attempt she had some orthostatic hypotension - this was fixed with a saline bolus. This morning she has no cardiovascular or respiratory symptoms. Her main concerns are pain control and nausea. Active Problems: Active Problems Anticoagulation adequate (Acute) Z79.01 History of arthroplasty of left knee (Acute) Z96.652 Nausea (Acute) R11.0 Anxiety disorder (Chronic) F41.9 Essential hypertension (Chronic) I10 GERD (gastroesophageal reflux disease) (Chronic) K21.9 Hypercholesterolemia (Chronic) E78.00 Obesity (BMI 30-39.9) (Chronic) E66.9 Restless legs (Chronic) Sleep apnea (Chronic) G47.30 Steatosis of liver (Chronic) K76.0 Type 2 diabetes mellitus, controlled (Chronic) E11.9 Current Medications: Current Medications Acetaminophen (Tylenol Tab*) 975 mg PO Q8HR [facility] Last Admin: 05/17/19 05:35 Dose: Not Given Amlodipine Besylate (Norvasc Tab*) 5 mg PO QPM [facility] Last Admin: 05/16/19 18:18 Dose: Not Given Apixaban (Eliquis*) 2.5 mg PO BID [facility] Last Admin: 05/17/19 08:21 Dose: 2.5 mg Bisacodyl (Dulcolax Supp*) 10 mg KS DAILY PRN PRN Reason: CONSTIPATION Clonazepam (Klonopin Tab(*)) 0.5 mg PO BID PRN PRN Reason: ANXIETY Cyclobenzaprine HCl (Flexeril Tab*) 10 mg PO Q6H PRN PRN Reason: SPASMS Last Admin: 05/17/19 03:43 Dose: 10 mg Diphenhydramine HCl (Benadryl Iv*) 25 mg IV Q6H PRN PRN Reason: PRURITIS Diphenhydramine HCl (Benadryl Po*) 25 mg PO Q6H PRN PRN Reason: PRURITIS Docusate Sodium (Colace Cap*) 100 mg PO BID [facility] Last Admin: 05/17/19 08:21 Dose: 100 mg Glipizide (Glucotrol Xl*) 2.5 mg PO 1800 [facility] Last Admin: 05/16/19 18:25 Dose: Not Given Cefazolin Sodium 1 gm/ Sodium (Chloride) 50 mls @ 200 mls/hr IVPB Q8H [facility] Stop: 05/17/19 09:14 Last Admin: 05/17/19 08:22 Dose: 200 mls/hr Lactated Ringer's (Lactated Ringers 1000 Ml Bag*) 1,000 mls @ 100 mls/hr IV PER RATE [facility] Last Admin: 05/17/19 00:55 Dose: 100 mls/hr Lactulose (Lactulose*) 30 ml PO BID PRN PRN Reason: CONSTIPATION Lisinopril (Prinivil Tab*) 5 mg PO QAM [facility] Last Admin: 05/17/19 08:22 Dose: 5 mg Magnesium Hydroxide (Milk Of Magnesia Liq*) 30 ml PO BID [facility] Last Admin: 05/17/19 08:20 Dose: 30 ml Magnesium Hydroxide (Milk Of Magnesia Liq*) 30 ml PO Q6H PRN PRN Reason: CONSTIPATION Metformin HCl (Glucophage*) 1,000 mg PO 1800 [facility] Last Admin: 05/16/19 18:25 Dose: Not Given Morphine Sulfate (Morphine Inj (Syringe))*) 2 mg IV Q4H PRN PRN Reason: Pain - Unrelieved Last Admin: 05/17/19 08:22 Dose: 2 mg Multivitamins (Theragran Tab*) 1 tab PO DAILY [facility] Last Admin: 05/17/19 08:22 Dose: 1 tab Ondansetron HCl (Zofran Inj*) 4 mg IV Q6H PRN PRN Reason: NAUSEA Last Admin: 05/16/19 18:52 Dose: 4 mg Ondansetron HCl (Zofran Odt Tab*) 4 mg PO Q6H PRN PRN Reason: NAUSEA Oxycodone HCl (Roxycodone Tab*) 10 mg PO Q4H PRN PRN Reason: Pain - Breakthrough Last Admin: 05/17/19 03:42 Dose: 10 mg Oxycodone/Acetaminophen (Percocet 5/325 Tab*) 2 tab PO Q4H PRN PRN Reason: PAIN - SEVERE Last Admin: 05/17/19 05:32 Dose: 2 tab Pioglitazone HCl (Actos Tab*) 30 mg PO QAM [facility] Last Admin: 05/17/19 08:22 Dose: 30 mg Polyethylene Glycol/Electrolytes (Miralax*) 17 gm PO DAILY PRN PRN Reason: Constipation Tramadol HCl (Ultram*) 50 mg PO Q6H PRN PRN Reason: PAIN - MODERATE Last Admin: 05/17/19 00:51 Dose: 50 mg Home Medications: Home Medications Medication Instructions Recorded Confirmed Type Pioglitazone TAB* [Actos TAB*] 30 mg PO QAM 05/01/16 05/16/19 History glipiZIDE TAB.XL* [Glucotrol Xl*] 2.5 mg PO 1800 05/01/16 05/16/19 History metFORMIN* [Glucophage 1000 MG TAB 1,000 mg PO 1800 05/01/16 05/16/19 History *] Lisinopril TAB* [Prinivil TAB 5 5 mg PO QAM 08/11/17 05/16/19 History MG*] clonazePAM TAB(*) [Klonopin TAB(*)] 0.5 mg PO BID PRN 08/11/17 05/16/19 History amLODIPine TAB* [Norvasc 5 mg TAB*] 5 mg PO QPM 01/21/19 05/16/19 History Aspirin TAB* [Aspirin 325 MG TAB*] 650 mg PO DAILY PRN 05/09/19 05/09/19 History Calcium Carbonate [Tums] 1 tab PO DAILY PRN 05/09/19 05/16/19 History Inulin/Chromium Picolinate [Fiber 1 each PO 1800 05/09/19 05/16/19 History Gummies] Multivitamin [Multivitamins] 1 tab PO BID 05/09/19 05/16/19 History Allergies: Allergies Allergy/AdvReac Type Severity Reaction Status Date / Time No Known Allergies Allergy Verified 05/16/19 07:05 Objective - Vital Signs Vital Signs: Vital Signs 05/16/19 05/16/19 05/16/19 11:54 11:55 12:00 Temperature 97.9 F Pulse Rate 69 70 69 Respiratory 16 16 22 Rate Blood Pressure 104/61 109/61 115/66 (mmHg) O2 Sat by Pulse 100 100 100 Oximetry 05/16/19 05/16/19 05/16/19 12:05 12:11 12:15 Temperature Pulse Rate 69 67 Respiratory 15 13 16 Rate Blood Pressure 127/63 105/58 (mmHg) O2 Sat by Pulse 100 100 Oximetry 05/16/19 05/16/19 05/16/19 12:16 12:17 12:21 Temperature Pulse Rate 65 66 Respiratory 20 16 22 Rate Blood Pressure 116/63 136/73 (mmHg) O2 Sat by Pulse 100 99 Oximetry 05/16/19 05/16/19 05/16/19 12:30 12:41 12:45 Temperature Pulse Rate 65 68 66 Respiratory 15 18 18 Rate Blood Pressure 152/79 132/74 140/67 (mmHg) O2 Sat by Pulse 100 100 98 Oximetry 05/16/19 05/16/19 05/16/19 13:00 13:01 13:16 Temperature Pulse Rate 63 63 64 Respiratory 18 20 19 Rate Blood Pressure 161/53 143/83 (mmHg) O2 Sat by Pulse 100 Oximetry 05/16/19 05/16/19 05/16/19 13:31 13:46 14:22 Temperature Pulse Rate 65 66 Respiratory 15 18 18 Rate Blood Pressure 143/55 141/86 (mmHg) O2 Sat by Pulse 100 100 Oximetry 05/16/19 05/16/19 05/16/19 14:25 15:04 15:30 Temperature 97.9 F 98.0 F Pulse Rate 69 76 Respiratory 16 18 18 Rate Blood Pressure 105/57 150/68 (mmHg) O2 Sat by Pulse 100 100 Oximetry 05/16/19 05/16/19 05/16/19 16:13 16:43 17:12 Temperature 97.8 F Pulse Rate 75 75 Respiratory 18 18 14 Rate Blood Pressure 136/58 92/50 (mmHg) O2 Sat by Pulse 100 100 Oximetry 05/16/19 05/16/19 05/16/19 18:03 18:13 19:29 Temperature 97.8 F Pulse Rate 69 Respiratory 16 20 17 Rate Blood Pressure 109/49 (mmHg) O2 Sat by Pulse 100 Oximetry 05/16/19 05/16/19 05/16/19 19:30 19:32 19:35 Temperature Pulse Rate Respiratory 17 17 17 Rate Blood Pressure (mmHg) O2 Sat by Pulse Oximetry 05/16/19 05/16/19 05/16/19 20:15 20:18 20:52 Temperature Pulse Rate 86 Respiratory 18 17 16 Rate Blood Pressure 135/67 (mmHg) O2 Sat by Pulse 100 Oximetry 05/16/19 05/16/19 05/16/19 21:46 21:47 22:01 Temperature Pulse Rate Respiratory 16 16 16 Rate Blood Pressure (mmHg) O2 Sat by Pulse Oximetry 05/16/19 05/17/19 05/17/19 23:59 00:34 00:51 Temperature 97.9 F Pulse Rate 87 Respiratory 16 16 16 Rate Blood Pressure 147/54 (mmHg) O2 Sat by Pulse 100 Oximetry 05/17/19 05/17/19 05/17/19 03:23 03:26 03:42 Temperature 97.6 F Pulse Rate 81 Respiratory 16 16 16 Rate Blood Pressure 107/49 (mmHg) O2 Sat by Pulse 100 Oximetry 05/17/19 05/17/19 05/17/19 03:43 05:32 06:13 Temperature Pulse Rate Respiratory 16 16 16 Rate Blood Pressure (mmHg) O2 Sat by Pulse Oximetry 05/17/19 05/17/19 07:26 08:22 Temperature 97.3 F Pulse Rate 79 Respiratory 16 12 Rate Blood Pressure 132/52 (mmHg) O2 Sat by Pulse 100 Oximetry - Intake and Output Intake and Output: Intake & Output 05/14/19 05/15/19 05/16/19 05/17/19 11:59 11:59 11:59 11:59 Intake Total 1900 2135 Output Total 2800 Balance 1900 -665 Weight 191 lb 8 oz Intake: IV Fluids 1900 980 LR 980 Lactated Ringer's 1900 IVPB 305 ABX - CEFAZOLIN 55 NS (0.9%) 250 Oral 850 Output: Villa 2500 Emesis 300 ADLs: Meal Record Start: 05/16/19 14: 22 Freq: Status: Active Protocol: Created 05/16/19 14:22 [id number] (Rec: 05/16/19 14:22 [id number]) Intake and Output Start: 05/16/19 14: 22 Freq: DAILY@0600,1400,2200 Status: Active Protocol: Created 05/16/19 14:22 [id number] (Rec: 05/16/19 14:22 [id number]) Document 05/16/19 19:02 [id number] (Rec: 05/16/19 19:02 [id number]) Document 05/16/19 22:41 [id number] (Rec: 05/16/19 22:42 [id number]) Document 05/17/19 05:21 [id number] (Rec: 05/17/19 05:26 [id number]-M14) Document 05/17/19 06:02 [id number] (Rec: 05/17/19 06:02 [id number] [id number]) - Physical Exam General Physical Exam Comment: She is warm and well perfused, hemodynamically stable and in no acute distress. She is sitting in a chair. General: No Cyanosis, No Anemia, No Jaundice, No Clubbing Lungs and Chest: Yes: Chest Expansion Full, Chest Expansion Symetrica, Percussion Note Resonant, Vessicular Breath Sounds. No: Crackles, Wheezes, Respiratory Distress, Use of Accessory Muscles Heart Rate and Rhythm: Regular Additional Cardiovascular: Yes: Normal Heart Sounds. No: Heart Murmur, Pedal Edema Abdominal Exam: Yes: Soft, Bowel Sounds Present. No: Distention, Abdominal Mass , Abdominal Tenderness, Guarding, Rebound Tenderness - Extremities Cranial Nerves II-XII Intact: Yes Limbs: Normal Power - Neuro Orientation: A/O x3 Psychiatric: Normal, Anxious Speech: Normal Results - Results Lab Results: Laboratory Results - last 24 hr 05/16/19 05/16/19 05/16/19 12:14 17:32 21:05 Hgb Hct Plt Count MPV Sodium Potassium Chloride Carbon Dioxide Anion Gap BUN Creatinine Est GFR ( Amer) Est GFR (Non-Af Amer) BUN/Creatinine Ratio Glucose POC Glucose (mg/dL) 118 H 121 H 164 H Calcium 05/17/19 05/17/19 05/17/19 05:21 05:21 07:17 Hgb 10.7 L Hct 31 L Plt Count 142 L MPV 7.6 Sodium 135 Potassium 4.4 Chloride 102 Carbon Dioxide 28 Anion Gap 5 BUN 15 Creatinine 0.81 Est GFR ( Amer) 85.6 Est GFR (Non-Af Amer) 70.7 BUN/Creatinine Ratio 18.5 Glucose 144 H POC Glucose (mg/dL) 142 H Calcium 8.3 L Assessment - Problem List Assessment: Patient Problems Anticoagulation adequate (Acute) History of arthroplasty of left knee (Acute) Nausea (Acute) Anxiety disorder (Chronic) Essential hypertension (Chronic) GERD (gastroesophageal reflux disease) (Chronic) Hypercholesterolemia (Chronic) Obesity (BMI 30-39.9) (Chronic) Restless legs (Chronic) Sleep apnea (Chronic) Steatosis of liver (Chronic) Type 2 diabetes mellitus, controlled (Chronic) Plan: History of arthroplasty of left knee (Acute) She is 1 day following left TKA. She has pain and this will be addressed by orthopedics. However, she appears to be doing well following the procedure. Anticoagulation adequate (Acute) Orthopedics have started her on apixiban for anticoagulation. Comorbidities: Essential hypertension (Chronic) She had an episode of orthostatic hypotension yesterday when she stood up. This resolved after a saline bolus. We held her amlodipine. Anxiety disorder (Chronic) This is exacerbated Type 2 diabetes mellitus, controlled (Chronic) She has good glycemic control Secondary diagnoses: GERD (gastroesophageal reflux disease) (Chronic) Hypercholesterolemia (Chronic) Obesity (BMI 30-39.9) (Chronic) Restless legs (Chronic) Sleep apnea (Chronic) Steatosis of liver (Chronic) I discussed the above with Alysha Garcia and called Gilbert Garcia (her ) and updated him.
--- NOTE | 2019-05-17 10:36 | PN ---
Progress Note - Progress Note Date of Service: 05/17/19 SOAP: Subjective: []Pt seen at bedside. Feels well aside from generalized fatigue. Pain is currently well controlled. Denies CP, SOB, dizziness, nausea Objective: []Gen: NAD LLE: Left knee dressing CDI, thigh soft, DF/PF intact, DP2+, sensation intact to light touch distally Calves supple and nontender without erythema, edema or palpable cords Assessment: []POD [address] Gore Plan: []WBAT PT eliquis 2.5 mg po bid x 30 days post op desires rehab with 3 week stay, cm made aware to seek placement Vital Signs Temp 97.3 F 05/17/19 07:26 Pulse 79 05/17/19 07:26 Resp 12 05/17/19 10:08 BP 132/52 05/17/19 07:26 Pulse Ox 100 05/17/19 07:26 Intake & Output 05/16/19 05/17/19 05/17/19 18:59 06:59 18:59 Intake Total 2205 1830 852 Output Total 400 2400 200 Balance 1805 -570 652 Weight 191 lb 8 oz Intake: IV Fluids 1900 980 756 LR 980 756 Lactated Ringer's 1900 IVPB 305 96 ABX - CEFAZOLIN 55 96 NS (0.9%) 250 Oral 850 Output: Urine 200 Villa 400 2100 Emesis 300 Laboratory Last Values Hgb 10.7 g/dL (12.0-16.0) L 05/17/19 05:21 Hct 31 % (35-47) L 05/17/19 05:21 Plt Count 142 10^3/uL (150-450) L 05/17/19 05:21 MPV 7.6 fL (7.4-10.4) 05/17/19 05:21 Sodium 135 mmol/L (135-145) 05/17/19 05:21 Potassium 4.4 mmol/L (3.5-5.0) 05/17/19 05:21 Chloride 102 mmol/L (101-111) 05/17/19 05:21 Carbon Dioxide 28 mmol/L (22-32) 05/17/19 05:21 Anion Gap 5 mmol/L (2-11) 05/17/19 05:21 BUN 15 mg/dL (6-24) 05/17/19 05:21 Creatinine 0.81 mg/dL (0.51-0.95) 05/17/19 05:21 Est GFR ( Amer) 85.6 (>60) 05/17/19 05:21 Est GFR (Non-Af Amer) 70.7 (>60) 05/17/19 05:21 BUN/Creatinine Ratio 18.5 (8-20) 05/17/19 05:21 Glucose 144 mg/dL (70-100) H 05/17/19 05:21 POC Glucose (mg/dL) 142 mg/dL (70-100) H 05/17/19 07:17 Calcium 8.3 mg/dL (8.6-10.3) L 05/17/19 05:21
[2019-05-17] MEDS: glipiZIDE TAB.XL* 2.5 MG PO SCH (17:51)
[2019-05-17] MEDS: metFORMIN* 1,000 MG TAB PO SCH (17:51)
[2019-05-18] MEDS: oxyCODONE/Acetamin 5/325 MG* TAB PO PRN ×5 (01:09→19:38)
[2019-05-18] MEDS: oxyCODONE TAB* 5 MG TAB PO PRN (03:50)
[2019-05-18] MEDS: Acetaminophen TAB* 325 MG PO SCH ×3 (06:15→22:07)
[2019-05-18 06:18] LABS: Hematocrit 30 % (35-47); Hemoglobin 10.3 g/dL (12.0-16.0); Mean Platelet Volume 7.1 fL (7.4-10.4); Platelet Count 145 10^3/uL (150-450)
--- NOTE | 2019-05-18 08:28 | PN ---
Subjective - Subjective Reason for Note: Progress Note History: Internal medicine: She has 4/10 pain in her left knee. When I arrived she was walking independently back to her bed from the bathroom. She is concerned about her glucose levels, but they are acceptable - though not as low as normal. She has had no further BP problems. She has no cardiovascular, respiratory symptoms. She doesn't like the food, but her appetite is normal. She states she has no help at home when she returns. Active Problems: Active Problems Anticoagulation adequate (Acute) Z79.01 History of arthroplasty of left knee (Acute) Z96.652 Nausea (Acute) R11.0 Anxiety disorder (Chronic) F41.9 Essential hypertension (Chronic) I10 GERD (gastroesophageal reflux disease) (Chronic) K21.9 Hypercholesterolemia (Chronic) E78.00 Obesity (BMI 30-39.9) (Chronic) E66.9 Restless legs (Chronic) Sleep apnea (Chronic) G47.30 Steatosis of liver (Chronic) K76.0 Type 2 diabetes mellitus, controlled (Chronic) E11.9 Current Medications: Current Medications Acetaminophen (Tylenol Tab*) 975 mg PO Q8HR [facility] Last Admin: 05/18/19 06:15 Dose: Not Given Apixaban (Eliquis*) 2.5 mg PO BID [facility] Last Admin: 05/17/19 20:40 Dose: 2.5 mg Bisacodyl (Dulcolax Supp*) 10 mg CA DAILY PRN PRN Reason: CONSTIPATION Clonazepam (Klonopin Tab(*)) 0.5 mg PO BID PRN PRN Reason: ANXIETY Cyclobenzaprine HCl (Flexeril Tab*) 10 mg PO Q6H PRN PRN Reason: SPASMS Last Admin: 05/17/19 03:43 Dose: 10 mg Diphenhydramine HCl (Benadryl Iv*) 25 mg IV Q6H PRN PRN Reason: PRURITIS Diphenhydramine HCl (Benadryl Po*) 25 mg PO Q6H PRN PRN Reason: PRURITIS Docusate Sodium (Colace Cap*) 100 mg PO BID [facility] Last Admin: 05/17/19 20:40 Dose: 100 mg Glipizide (Glucotrol Xl*) 2.5 mg PO 1800 [facility] Last Admin: 05/17/19 17:51 Dose: 2.5 mg Lactated Ringer's (Lactated Ringers 1000 Ml Bag*) 1,000 mls @ 100 mls/hr IV PER RATE [facility] Last Admin: 05/17/19 00:55 Dose: 100 mls/hr Lactulose (Lactulose*) 30 ml PO BID PRN PRN Reason: CONSTIPATION Lisinopril (Prinivil Tab*) 5 mg PO QAM [facility] Last Admin: 05/17/19 08:22 Dose: 5 mg Magnesium Hydroxide (Milk Of Magnesia Liq*) 30 ml PO BID [facility] Last Admin: 05/17/19 20:40 Dose: 30 ml Magnesium Hydroxide (Milk Of Magnesia Liq*) 30 ml PO Q6H PRN PRN Reason: CONSTIPATION Metformin HCl (Glucophage*) 1,000 mg PO 1800 [facility] Last Admin: 05/17/19 17:51 Dose: 1,000 mg Morphine Sulfate (Morphine Inj (Syringe))*) 2 mg IV Q4H PRN PRN Reason: Pain - Unrelieved Last Admin: 05/17/19 08:22 Dose: 2 mg Multivitamins (Theragran Tab*) 1 tab PO DAILY [facility] Last Admin: 05/17/19 08:22 Dose: 1 tab Ondansetron HCl (Zofran Inj*) 4 mg IV Q6H PRN PRN Reason: NAUSEA Last Admin: 05/16/19 18:52 Dose: 4 mg Ondansetron HCl (Zofran Odt Tab*) 4 mg PO Q6H PRN PRN Reason: NAUSEA Oxycodone HCl (Roxycodone Tab*) 10 mg PO Q4H PRN PRN Reason: Pain - Breakthrough Last Admin: 05/18/19 03:50 Dose: 10 mg Oxycodone/Acetaminophen (Percocet 5/325 Tab*) 2 tab PO Q4H PRN PRN Reason: PAIN - SEVERE Last Admin: 05/18/19 06:26 Dose: 2 tab Pioglitazone HCl (Actos Tab*) 30 mg PO QAM [facility] Last Admin: 05/17/19 08:22 Dose: 30 mg Polyethylene Glycol/Electrolytes (Miralax*) 17 gm PO DAILY PRN PRN Reason: Constipation Tramadol HCl (Ultram*) 50 mg PO Q6H PRN PRN Reason: PAIN - MODERATE Last Admin: 05/17/19 00:51 Dose: 50 mg Home Medications: Home Medications Medication Instructions Recorded Confirmed Type Pioglitazone TAB* [Actos TAB*] 30 mg PO QAM 05/01/16 05/16/19 History glipiZIDE TAB.XL* [Glucotrol Xl*] 2.5 mg PO 1800 05/01/16 05/16/19 History metFORMIN* [Glucophage 1000 MG TAB 1,000 mg PO 1800 05/01/16 05/16/19 History *] Lisinopril TAB* [Prinivil TAB 5 5 mg PO QAM 08/11/17 05/16/19 History MG*] clonazePAM TAB(*) [Klonopin TAB(*)] 0.5 mg PO BID PRN 08/11/17 05/16/19 History amLODIPine TAB* [Norvasc 5 mg TAB*] 5 mg PO QPM 01/21/19 05/16/19 History Aspirin TAB* [Aspirin 325 MG TAB*] 650 mg PO DAILY PRN 05/09/19 05/09/19 History Calcium Carbonate [Tums] 1 tab PO DAILY PRN 05/09/19 05/16/19 History Inulin/Chromium Picolinate [Fiber 1 each PO 1800 05/09/19 05/16/19 History Gummies] Multivitamin [Multivitamins] 1 tab PO BID 05/09/19 05/16/19 History Allergies: Allergies Allergy/AdvReac Type Severity Reaction Status Date / Time No Known Allergies Allergy Verified 05/16/19 07:05 Objective - Vital Signs Vital Signs: Vital Signs 05/17/19 05/17/19 05/17/19 08:22 09:15 09:46 Temperature Pulse Rate Respiratory 12 12 12 Rate Blood Pressure (mmHg) O2 Sat by Pulse Oximetry 05/17/19 05/17/19 05/17/19 10:08 11:39 12:27 Temperature 98.2 F Pulse Rate 75 Respiratory 12 16 16 Rate Blood Pressure 145/55 (mmHg) O2 Sat by Pulse 100 Oximetry 05/17/19 05/17/19 05/17/19 12:45 14:57 15:17 Temperature Pulse Rate Respiratory 20 18 18 Rate Blood Pressure (mmHg) O2 Sat by Pulse Oximetry 05/17/19 05/17/19 05/17/19 16:00 16:18 16:49 Temperature 98.8 F Pulse Rate 76 Respiratory 18 18 Rate Blood Pressure 118/44 (mmHg) O2 Sat by Pulse 99 99 Oximetry 05/17/19 05/17/19 05/17/19 17:51 19:27 19:58 Temperature 98.7 F Pulse Rate 73 Respiratory 18 18 18 Rate Blood Pressure 128/50 (mmHg) O2 Sat by Pulse 98 Oximetry 05/17/19 05/17/19 05/17/19 20:03 20:09 22:09 Temperature Pulse Rate Respiratory 18 18 18 Rate Blood Pressure (mmHg) O2 Sat by Pulse Oximetry 05/17/19 05/18/19 05/18/19 23:40 01:09 03:50 Temperature 98.2 F Pulse Rate 82 Respiratory 18 18 18 Rate Blood Pressure 138/64 (mmHg) O2 Sat by Pulse 100 Oximetry 05/18/19 05/18/19 05/18/19 03:54 04:05 04:49 Temperature 97.8 F Pulse Rate 90 Respiratory 18 18 Rate Blood Pressure 150/66 (mmHg) O2 Sat by Pulse 98 98 Oximetry 05/18/19 05/18/19 05/18/19 06:26 06:28 07:27 Temperature Pulse Rate Respiratory 18 18 18 Rate Blood Pressure (mmHg) O2 Sat by Pulse 98 Oximetry 05/18/19 05/18/19 07:31 07:43 Temperature 98.8 F Pulse Rate 74 Respiratory 18 18 Rate Blood Pressure 137/58 (mmHg) O2 Sat by Pulse 100 Oximetry - Intake and Output Intake and Output: Intake & Output 05/15/19 05/16/19 05/17/19 05/18/19 11:59 11:59 11:59 11:59 Intake Total 1900 3187 620 Output Total 3000 1600 Balance 1900 187 -980 Weight 191 lb 8 oz Intake: IV Fluids 1900 1736 LR 1736 Lactated Ringer's 1900 IVPB 401 ABX - CEFAZOLIN 151 NS (0.9%) 250 Oral 1050 620 Output: Urine 200 1600 [place] 2500 Emesis 300 ADLs: Meal Record Start: 05/16/19 14: 22 Freq: Status: Active Protocol: Created 05/16/19 14:22 [id number] (Rec: 05/16/19 14:22 [id number] [id number]) Document 05/17/19 09:55 [id number] (Rec: 05/17/19 13:55 [id number] SSU-M18) Document 05/17/19 18:56 [id number] (Rec: 05/17/19 18:57 [id number] SSU-C01) Intake and Output Start: 05/16/19 14: 22 Freq: DAILY@0600,1400,2200 Status: Active Protocol: Created 05/16/19 14:22 [id number] (Rec: 05/16/19 14:22 [id number] SSU-M21) Document 05/16/19 19:02 [id number] (Rec: 05/16/19 19:02 [id number] SSU-M21) Document 05/16/19 22:41 [id number] (Rec: 05/16/19 22:42 [id number] TELE-M14) Document 05/17/19 05:21 [id number] (Rec: 05/17/19 05:26 [id number] TELE-M14) Document 05/17/19 06:02 [id number] (Rec: 05/17/19 06:02 [id number] SSU-M16) Document 05/17/19 09:07 [id number] (Rec: 05/17/19 09:07 [id number] SSU-C06) Document 05/17/19 13:49 [id number] (Rec: 05/17/19 13:50 [id number] SSU-C06) Document 05/17/19 17:07 [id number] (Rec: 05/17/19 17:08 [id number] SSU-C01) Document 05/17/19 18:57 [id number] (Rec: 05/17/19 18:58 [id number] SSU-C01) Document 05/17/19 22:15 [id number] (Rec: 05/17/19 22:16 [id number] SSU-M17) Document 05/18/19 00:01 [id number] (Rec: 05/18/19 00:02 [id number] SSU-M17) Document 05/18/19 06:20 [id number] (Rec: 05/18/19 06:20 [id number] SSU-C06) Document 05/18/19 06:48 [id number] (Rec: 05/18/19 06:48 [id number] SSU-M17) - Physical Exam General: No Cyanosis, No Anemia, No Jaundice, No Clubbing Lungs and Chest: Yes: Chest Expansion Full, Chest Expansion Symetrica, Percussion Note Resonant, Vessicular Breath Sounds. No: Crackles, Wheezes Heart Rate and Rhythm: Regular Additional Cardiovascular: Yes: Normal Heart Sounds. No: Heart Murmur, Pedal Edema Abdominal Exam: Yes: Soft, Bowel Sounds Present. No: Distention, Abdominal Tenderness Results - Results Lab Results: Laboratory Results - last 24 hr 05/17/19 05/17/19 05/17/19 11:54 16:30 20:39 Hgb Hct Plt Count MPV POC Glucose (mg/dL) 216 H 142 H 167 H 05/18/19 05/18/19 06:06 07:22 Hgb 10.3 L Hct 30 L Plt Count 145 L MPV 7.1 L POC Glucose (mg/dL) 129 H Assessment - Problem List Assessment: Patient Problems Anticoagulation adequate (Acute) History of arthroplasty of left knee (Acute) Nausea (Acute) Anxiety disorder (Chronic) Essential hypertension (Chronic) GERD (gastroesophageal reflux disease) (Chronic) Hypercholesterolemia (Chronic) Obesity (BMI 30-39.9) (Chronic) Restless legs (Chronic) Sleep apnea (Chronic) Steatosis of liver (Chronic) Type 2 diabetes mellitus, controlled (Chronic) Plan: History of arthroplasty of left knee (Acute) Day 2 following left total knee arthroplasty. Having watched her walk independently, I think she is doing well. She is hoping for inpatient rehabilitation, which I think is appropriate. Her pain control is 4/10 at her estimation, but she is not asking for additional analgesia. Type 2 diabetes mellitus, controlled (Chronic) Her glycemic control is adequate. comorbidities Anticoagulation adequate (Acute) Her hemoglobin is stable Nausea (Acute) This has improved Anxiety disorder (Chronic) This is exacerbated by the stress of the surgery and hospitalization Essential hypertension (Chronic) This is well controlled Secondary diagnoses GERD (gastroesophageal reflux disease) (Chronic) Hypercholesterolemia (Chronic) Obesity (BMI 30-39.9) (Chronic) Restless legs (Chronic) Sleep apnea (Chronic) Steatosis of liver (Chronic) I think she is progressing well and that she is an appropriate candidate for PMRU.
[2019-05-18] MEDS: Apixaban* 2.5 MG TAB PO SCH ×2 (08:31→22:10)
[2019-05-18] MEDS: Pioglitazone TAB* 30 MG PO SCH (08:31)
[2019-05-18] MEDS: Lisinopril TAB* 5 MG PO SCH (08:31)
[2019-05-18] MEDS: Vitamin THERAPEUTIC TAB PO SCH (08:31)
[2019-05-18] MEDS: Docusate CAP* 100 MG PO SCH ×2 (08:31→19:35)
[2019-05-18] MEDS: Magnesium Hydroxide LIQ* 30 ML UDC PO SCH ×2 (08:31→19:35)
--- NOTE | 2019-05-18 10:59 | PN ---
Progress Note - Progress Note Date of Service: 05/18/19 SOAP: Subjective: [] Pt seen at bedside. She feels anxious and has some knee pain which is tolerable. Denies CP, SOB, dizziness, nausea. Primary pain complaint is left proximal calf. Objective: []Gen: NAD LLE: Left knee dressing changed, incision CDI, thigh soft, DF/PF intact, DP2+, sensation intact to light touch distally L calf tender proximally, no erythema, edema or palpable cords. R calf supple and nontender without erythema, edema or palpable cords Assessment: []POD [address] Gore Plan: []WBAT PT eliquis 2.5 mg po bid x 30 days post op desires rehab with 3 week stay, cm made aware to seek placement. PMRU unable to offer a bed dopplar ordered. Vital Signs Temp 98.8 F 05/18/19 07:43 Pulse 74 05/18/19 07:43 Resp 18 05/18/19 10:27 BP 137/58 05/18/19 07:43 Pulse Ox 100 05/18/19 07:43 Intake & Output 05/17/19 05/18/19 05/18/19 18:59 06:59 18:59 Intake Total 1172 500 Output Total 1000 800 300 Balance 172 -300 -300 Intake: IV Fluids 756 LR 756 IVPB 96 ABX - CEFAZOLIN 96 Oral 320 500 Output: Urine 1000 800 300 Laboratory Last Values Hgb 10.3 g/dL (12.0-16.0) L 05/18/19 06:06 Hct 30 % (35-47) L 05/18/19 06:06 Plt Count 145 10^3/uL (150-450) L 05/18/19 06:06 MPV 7.1 fL (7.4-10.4) L 05/18/19 06:06 Sodium 135 mmol/L (135-145) 05/17/19 05:21 Potassium 4.4 mmol/L (3.5-5.0) 05/17/19 05:21 Chloride 102 mmol/L (101-111) 05/17/19 05:21 Carbon Dioxide 28 mmol/L (22-32) 05/17/19 05:21 Anion Gap 5 mmol/L (2-11) 05/17/19 05:21 BUN 15 mg/dL (6-24) 05/17/19 05:21 Creatinine 0.81 mg/dL (0.51-0.95) 05/17/19 05:21 Est GFR ( Amer) 85.6 (>60) 05/17/19 05:21 Est GFR (Non-Af Amer) 70.7 (>60) 05/17/19 05:21 BUN/Creatinine Ratio 18.5 (8-20) 05/17/19 05:21 Glucose 144 mg/dL (70-100) H 05/17/19 05:21 POC Glucose (mg/dL) 129 mg/dL (70-100) H 05/18/19 07:22 Calcium 8.3 mg/dL (8.6-10.3) L 05/17/19 05:21
[2019-05-18] MEDS: metFORMIN* 1,000 MG TAB PO SCH (18:09)
[2019-05-18] MEDS: glipiZIDE TAB.XL* 2.5 MG PO SCH (18:09)
[2019-05-19] MEDS: oxyCODONE/Acetamin 5/325 MG* TAB PO PRN ×3 (02:32→12:05)
[2019-05-19] MEDS: Cyclobenzaprine TAB* 10 MG PO PRN (03:38)
[2019-05-19] MEDS: Morphine INJ* 2 MG/ML 1 ML SYRINGE (TWO MG - NEW SYRINGE VERSION) IV PRN (03:50)
[2019-05-19] MEDS: Acetaminophen TAB* 325 MG PO SCH (05:41)
[2019-05-19 06:10] LABS: Hematocrit 29 % (35-47); Hemoglobin 9.8 g/dL (12.0-16.0); Mean Platelet Volume 7.5 fL (7.4-10.4); Platelet Count 158 10^3/uL (150-450)
[2019-05-19] MEDS: Apixaban* 2.5 MG TAB PO SCH (08:04)
[2019-05-19] MEDS: Vitamin THERAPEUTIC TAB PO SCH (08:04)
[2019-05-19] MEDS: Lisinopril TAB* 5 MG PO SCH (08:05)
[2019-05-19] MEDS: Pioglitazone TAB* 30 MG PO SCH (08:05)
[2019-05-19] MEDS: Docusate CAP* 100 MG PO SCH (08:13)
[2019-05-19] MEDS: Magnesium Hydroxide LIQ* 30 ML UDC PO SCH (08:13)
--- NOTE | 2019-05-19 10:36 | DS ---
Orthopedic Discharge Summary - Discharge Summary Date of Admission:05/16/19 Date of Discharge: 05/19/2019 Date of Surgery: 05/16/2019 Attending Orthopedic Provider: Dr. Gore Pre-operative Diagnosis: Left total knee osteoarthritis Operative Procedure: Left total knee replacement Disposition of Patient: [facility] Condition of Patient: Good History: JANI ANDREW is a 64 year old F with years of increasingly severe left knee pain. Patient has failed conservative management and has elected to undergo a left total knee replacement Hospital Course: JANI was admitted to [facility] on 05/16/19. Patient underwent a left total knee without complication followed by a brief recovery in PACU and transfer to the Short Stay Surgical Unit in stable condition. Our hospitalist service, physical therapy and occupational therapy also participated in this patients care. Post-op day 1: patient was alert and in no acute distress. Dressing was clean, dry and intact. Operative extremity dorsiflexion and plantarflexion intact, sensation intact to light touch distally , DP2+. Post-op day two: dressing was changed, incision was clean, dry and intact. A venous doppler of the lower extremity was obtained to evaluate for a DVT and was found to be negative. POD 3 the pt complained that she broke her knee. An Xray was obtaned of her knee and was found to be negative for fracture. She was able to walk to the bathroom by herself without issue and she was non tender with palpation. Patient was deemed to be medically and orthopedically stable for discharge. Physical therapy goals were met. Home Medications Medication Instructions Recorded Confirmed Type Pioglitazone TAB* [Actos TAB*] 30 mg PO QAM 05/01/16 05/16/19 History glipiZIDE TAB.XL* [Glucotrol Xl*] 2.5 mg PO 1800 05/01/16 05/16/19 History metFORMIN* [Glucophage 1000 MG TAB 1,000 mg PO 1800 05/01/16 05/16/19 History *] Lisinopril TAB* [Prinivil TAB 5 5 mg PO QAM 08/11/17 05/16/19 History MG*] clonazePAM TAB(*) [Klonopin TAB(*)] 0.5 mg PO BID PRN 08/11/17 05/16/19 History amLODIPine TAB* [Norvasc 5 mg TAB*] 5 mg PO QPM 01/21/19 05/16/19 History Aspirin TAB* [Aspirin 325 MG TAB*] 650 mg PO DAILY PRN 05/09/19 05/09/19 History Calcium Carbonate [Tums] 1 tab PO DAILY PRN 05/09/19 05/16/19 History Inulin/Chromium Picolinate [Fiber 1 each PO 1800 05/09/19 05/16/19 History Gummies] Multivitamin [Multivitamins] 1 tab PO BID 05/09/19 05/16/19 History Discharge Instructions following Orthopedic Surgery: Activity: * Weight Bearing as tolerated * Continue physical therapy and occupational therapy exercises as shown Wound care: * OK to shower on post-op day 3, no bathing, swimming, or submerging wound. * Use gentle soap, pat dry. Cover with gauze, KIERA wrap or tape. * Visiting home nurse to do wound checks. Call Orthopedic office for: * Increased drainage * Redness * Increased pain * Fever Go to ER with shortness of breath or chest pain. Diet: * Regular diet * Increase fluids and fiber to prevent constipation. * Continue to use stool softeners, call office if no bowel motion within 48 hours. Medications See Home Medication List in your packet for medications that you should take after discharge. DVT Prophylaxis: Eliquis Dosin.5 mg, 1 tab every 12 hours x 30 days Pain Control: Percocet Dosin/325 mg 1-2 tabs by mouth every 4-6 hours as needed for pain. Maximum of 10 tabs per day. Please note that Percocet contains Tylenol (acetaminophen). Maximum daily dose of Tylenol is 4000 mg from all sources. Antibiotics are required prior to any dental work. FOLLOW UP: Follow up with [Bao] Within 10-14 days, call for appointment Please call our office with any questions or concerns ([phone])
[2019-05-19 11:34] VITALS: BP 123/67
== END 2019-05-19 12:41 | DRG 470 ==
LOC: AA 06:31 → SSU 14:28
PROVIDERS: ADMIT Orthopaedic Surgery Adult Reconstructive Orthopaedic Surgery; ATTEND Orthopaedic Surgery Adult Reconstructive Orthopaedic Surgery
PROC: 8E0Y0CZ Robotic Assisted Procedure of Lower Extremity, Open Approach (ICD-10-PCS; 2019-05-16)
PROC: 0SRD069 Replacement of Left Knee Joint with Oxidized Zirconium on Polyethylene Synthetic Substitute, Cemented, Open Approach (ICD-10-PCS; principal; 2019-05-16 09:00)
DX: M17.12 Unilateral primary osteoarthritis, left knee (principal); I10 Essential (primary) hypertension; E11.9 Type 2 diabetes mellitus without complications; F41.9 Anxiety disorder, unspecified; G47.30 Sleep apnea, unspecified; M25.462 Effusion, left knee; K21.9 Gastro-esophageal reflux disease without esophagitis; E78.00 Pure hypercholesterolemia, unspecified; E66.9 Obesity, unspecified; G25.81 Restless legs syndrome; K76.0 Fatty (change of) liver, not elsewhere classified; R11.2 Nausea with vomiting, unspecified; I95.1 Orthostatic hypotension; M25.762 Osteophyte, left knee; Z79.84 Long term (current) use of oral hypoglycemic drugs; Z79.899 Other long term (current) drug therapy; Z79.82 Long term (current) use of aspirin; Z68.36 Body mass index [BMI] 36.0-36.9, adult
CPT/HCPCS: 36415; 80048; 85014; 85018; 85049; 88305; 88311; A9270-GY; C1776; J0690; J1170; J2270; J2405; J2795

== ENCOUNTER 2019-06-03 18:29 | Emergency (ER) | payer MEDICARE ==
--- NOTE | 2019-06-03 18:56 | ED ---
Lower Extremity - HPI Summary HPI Summary: This patient is a 64 year old F presenting to [facility] accompanied by and colleague with a chief complaint of leg pain since 3 days ago. Symptoms aggravated by nothing. Symptoms alleviated by nothing. Patient reports left leg surgery [address] Gore and every since her stitches were taken out 3 days ago her leg pain has intensified describing it as feels like the whole leg is rock. She reports swelling and leg hardening especially when she wakes up in the morning. On Eliquis 2x a day because of surgery, cannot do prescribed exercises because she cannot lift legs more than 6 inches, not allowed to put weight on legs, taking Oxycodone for pain. Mhx diabetes, hypertension. Medications reviewed. Allergies noted. - History of Current Complaint Chief Complaint: EDExtremityLower Stated Complaint: LEG PAIN PER EMS Time Seen by Provider: 06/03/19 18:34 Hx Obtained From: Patient Onset/Duration: Days Severity Currently: Moderate Pain Intensity: 7 Pain Scale Used: 0-10 Numeric Timing: Constant Associated Signs And Symptoms: Positive: Swelling Aggravating Factor(s): Nothing Alleviating Factor(s): Nothing - Allergies/Home Medications Allergies/Adverse Reactions: Allergies Allergy/AdvReac Type Severity Reaction Status Date / Time No Known Allergies Allergy Verified 06/03/19 18:44 PMH/Surg Hx/FS Hx/Imm Hx Endocrine/Hematology History: Reports: Hx Diabetes Denies: Hx Anemia Cardiovascular History: Reports: Hx Hypertension Denies: Hx Pacemaker/ICD, Other Cardiovascular Problems/Disorders Respiratory History: Reports: Hx Sleep Apnea - NO MACHINE Denies: Other Respiratory Problems/Disorders GI History: Reports: Hx Gastroesophageal Reflux Disease Denies: Hx Jaundice, Other GI Disorders Musculoskeletal History: Reports: Hx Arthritis - KNEES Sensory History: Reports: Hx Cataracts - taran, Hx Contacts or Glasses - glasses Denies: Hx Hearing Aid Opthamlomology History: Reports: Hx Cataracts - taran, Hx Contacts or Glasses - glasses Neurological History: Denies: Hx CVA, Hx Migraine, Other Neuro Impairments/Disorders Psychiatric History: Reports: Hx Anxiety - on meds, Hx Depression, Hx Panic Disorder - a little nervous - Cancer History Cancer Type, Location and Year: denies - Surgical History Surgery Procedure, Year, and Place: pancreatic cyst, Hx Anesthesia Reactions: No Infectious Disease History: No Infectious Disease History: Denies: Hx Clostridium Difficile, Hx Hepatitis, Hx Human Immunodeficiency Virus (HIV), Hx of Known/Suspected MRSA, Hx Shingles, Hx Tuberculosis, Hx Known/ Suspected VRE, Hx Known/Suspected VRSA, History Other Infectious Disease, Traveled Outside the [place] in Last 30 Days - Family History Known Family History: Positive: Hypertension, Diabetes Negative: Cardiac Disease - Social History Alcohol Use: None Hx Substance Use: No Substance Use Type: Reports: None Hx Tobacco Use: No Smoking Status (MU): Never Smoked Tobacco Have You Smoked in the Last Year: No Review of Systems Negative: Fever Positive: Other - left leg pain and swelling All Other Systems Reviewed And Are Negative: Yes Physical Exam - Summary Physical Exam Summary: Constitutional: Well-developed, Well-nourished, Alert. (-) Distressed Skin: Warm, Dry HENT: Normocephalic; Atraumatic Eyes: Conjunctiva normal Neck: Musculoskeletal ROM normal neck. (-) JVD, (-) Stridor, (-) Tracheal deviation Cardio: Rhythm regular, rate normal, Heart sounds normal; Intact distal pulses; Radial pulses are 2+ and symmetric. (-) Murmur Pulmonary/Chest wall: Effort normal. (-) Respiratory distress, (-) Wheezes, (-) Rales Abd: Soft, (-) tenderness, (-) Distension, (-) Guarding, (-) Rebound Musculoskeletal: Left knee surgical incision clean, dry, intact left legs slightly swollen compared to right, no areas of venous cord, focal tenderness Lymph: (-) Cervical adenopathy Neuro: Alert, Oriented x3 Psych: Mood and affect Normal Triage Information Reviewed: Yes Vital Signs On Initial Exam: Initial Vitals Temp Pulse Resp BP Pulse Ox 98.5 F 82 18 156/70 98 06/03/19 18:38 06/03/19 18:38 06/03/19 18:38 06/03/19 18:38 06/03/19 18:38 Vital Signs Reviewed: Yes Procedures - Sedation Patient Received Moderate/Deep Sedation with Procedure: No Diagnostics - Vital Signs Vital Signs Temp Pulse Resp BP Pulse Ox 06/03/19 18:38 98.5 F 82 18 156/70 98 - Laboratory Result Diagrams: 06/03/19 18:58 06/03/19 18:58 Lab Statement: Any lab studies that have been ordered have been reviewed, and results considered in the medical decision making process. - Ultrasound Venous Doppler Study Ultrasound Interpretation Completed By: Radiologist Summary of Ultrasound Findings: Per radiologist,. No left extremity deep vein thrombosis. ED physician has reviewed this imaging report. Re-Evaluation - Re-Evaluation First Eval Re-Evaluation Time: 20:44 Comment: discharge information Lower Extremity Course/Dx - Course Course Of Treatment: Patient is here with left lower family swelling. Patient had her left knee replaced and is ago by Dr. Gore. Patient has been having less success with physical therapy which was her main concern. Patient was sent here due to worsening or extremity swelling and concern for DVT. Patient is on Eliquis. Patient had an ultrasound performed which showed no evidence of DVT. Patient is instructed to call Dr. Gore on Wednesday for prompt follow-up - Diagnoses Provider Diagnoses: Swelling of left lower extremity, Post-operative complication Discharge ED - Sign-Out/Discharge Documenting (check all that apply): Patient Departure - discharge - Discharge Plan Condition: Stable Disposition: HOME Patient Education Materials: Knee Replacement (DC) Referrals: Teofilo Pruett MD [Primary Care Provider] - Additional Instructions: Please call Dr. Gore on Wednesday for a sooner appointment. [facility], chills, pus coming out of surgical wound on leg, or any other concerning symptoms. - Billing Disposition and Condition Condition: STABLE Disposition: Home - Attestation Statements Document Initiated by Mylene: Yes Documenting Scribe: Tere Rojas Provider For Whom Mylene is Documenting (Include Credential): Dr. Gallo Hernandez MD Scribe Attestation: Tere Roblero scribed for Dr. Gallo Hernandez MD on 06/03/19 at 2056. Scribe Documentation Reviewed: Yes Provider Attestation: The documentation as recorded by the Tere sparks accurately reflects the service I personally performed and the decisions made by me, Dr. Gallo Hernandez MD Status of Scribdolly Document: Viewed
--- OUTSIDE RECORDS SUMMARY | 2019-06-03 19:07 | XMS REPORT | Continuity of Care Document ---
:1955 External Reference #:[id number] Author Name Monique Gore M.D. 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 Onset: 01/01/2015 Fracture Of Lower Leg Essential hypertension Jayjay Shelton M.D., [facility], [facility] Onset: 05/06/2016 Chest pain Jayjay Shelton M.D., [facility], [facility] Onset: 05/06/2016 Obesity Jayjay Shelton M.D., [facility] Onset: 05/15/2016 Difficulty breathing Rain Rubio DNP RN, Onset: 05/11/2017 [place]- Periodic limb movement disorder Rain Rubio DNP, RN, Onset: 05/11/2017 [place]-BC Insomnia Rain Rubio DNP, RN, Onset: 05/11/2017 [place]- Obstructive sleep apnea syndrome Rain Rubio DNP, RN, Onset: 05/25/2017 [place]-BC Peroneal tendinitis, right leg Ayo Chavarria MD Onset: 09/20/2018 Localized, primary osteoarthritis Ayo Chavarria MD Onset: 11/26/2017 Social History Type Date Description Comments Sex Unknown Tobacco Use Start: Unknown Never Smoked Cigarettes Smoking Status Reviewed: 05/31/19 Never Smoked Cigarettes ETOH Use Drinks Alcoholic [...] M.D. 12/07/2018 Injection Technetium TC 99M Tetrofosmin, [facility] Nuclear Schedule 05/14/2016 Per Unit Dose Up To 40 Millicuries Injection Inj, Regadenoson, 0.1 MG Carl Hassan M.D. 05/13/2016 Injection Technetium TC 99M Tetrofosmin, Carl Hassan M.D. 05/13/2016 Per Unit Dose Up To 40 Millicuries Injection Immunizations Description No Information Available Vital Signs Date Vital Result Comment 05/31/2019 10:53am Height 61 inches 5'1" Weight 195.00 lb Heart Rate 92 /min BP Systolic Sitting 140 mmHg BP Diastolic Sitting 70 mmHg Respiratory Rate 16 /min Body Temperature 98.9 F Pain Level 8 BMI (Body Mass Index) 36.8 kg/m2 05/08/2019 9:53am Height 61 inches 5'1" Weight 195.00 lb Heart Rate 60 /min BP Systolic 128 mmHg BP Diastolic 78 mmHg Respiratory Rate 16 /min Pain Level 9 BMI (Body Mass Index) 36.8 kg/m2 Results Test Acquired Date Facility Test Result H/L Range Note Inr/Protime 05/09/2019 [facility] Inr 0.97 Normal 0.82-1.[address] [place] [address] [phone] Laboratory test 05/09/2019 [facility] Partial 39.0 High 26.0- 38.[address] [place] [address] PTT [phone] CBC Auto Diff 05/09/2019 [facility] White Blood 3.1 10^3/uL Low 3.5-10.[address] [place] [address] [phone] Red Blood Count 3.95 10^6/uL Normal 3.70-4.87 Hemoglobin 12.5 g/dL Normal 12.0-16.0 Hematocrit 37 % Normal 35-47 Mean Corpuscular Volume 93 fL Normal 80-97 Mean Corpuscular Hemoglobin 32 pg High 27-31 Mean Corpuscular HGB Conc 34 g/dL Normal 31-36 Red Cell Distribution Width 14 % Normal 10-15 Platelet Count 207 10^3/uL Normal 150-450 Mean Platelet Volume 8.0 fL Normal 7.4-10.4 Abs Neutrophils 1.4 10^3/uL Low 1.5-7.7 Abs Lymphocytes 1.4 10^3/uL Normal 1.0-4.8 Abs Monocytes 0.3 10^3/uL Normal 0-0.8 Abs Eosinophils 0.1 10^3/uL Normal 0-0.6 Abs Basophils 0.0 10^3/uL Normal 0-0.2 Abs Nucleated RBC 0.0 10^3/uL Granulocyte % 44.6 % Lymphocyte % 44.6 % Monocyte % 8.4 % Eosinophil % 2.0 % Basophil % 0.4 % Nucleated Red Blood Cells % 0.1 Comp Metabolic 05/09/2019 [facility] Sodium 135 mmol/L Normal 135-[address] [place] [address] [phone] Potassium 4.8 mmol/L Normal 3.5-5.0 Chloride 103 mmol/L Normal 101-111 Co2 Carbon Dioxide 27 mmol/L Normal 22-32 Anion Gap 5 mmol/L Normal 2-11 Glucose 93 mg/dL Normal 70-100 Blood Urea Nitrogen 18 mg/dL Normal 6-24 Creatinine 0.79 mg/dL Normal 0.51-0.95 BUN/Creatinine Ratio 22.8 High 8-20 Calcium 9.2 mg/dL Normal 8.6-10.3 Total Protein 6.8 g/dL Normal 6.4-8.9 Albumin 4.3 g/dL Normal 3.2-5.2 Globulin 2.5 g/dL Normal 2-4 Albumin/Globulin Ratio 1.7 Normal 1-3 Total Bilirubin 0.40 mg/dL Normal 0.2-1.0 Alkaline Phosphatase 59 U/L Normal 34-104 Alt 12 U/L Normal 7-52 Ast 19 U/L Normal 13-39 Egfr Non- 72.8 >60 Egfr 88.1 >60 2 Type & Screen 05/09/2019 [facility] Patient Blood Type O Positive [address] [place] [address] [phone] Antibody Screen NEGATIVE Urinalysis Profile 05/09/2019 [facility] Urine Color Straw [address] [place] [address] [phone] Urine Appearance Clear Urine Specific [place] 1.005 Low 1.010-1.030 Urine pH 5.0 Normal 5-9 Urine Urobilinogen Negative Negative Urine Ketones Negative Negative Urine Protein Negative Negative Urine Leukocytes Negative Negative Urine Blood 1+ Abnormal Negative Urine Nitrite Negative Negative Urine Bilirubin Negative Negative Urine Glucose Negative Negative Urine White Blood Cell Absent Absent Urine Red Blood Cell Trace(0-2/hpf) Absent Urine Bacteria Absent Absent 1 Standard intensity warfarin therapeutic range: 2.0-3.0 High intensity warfarin therapeutic range: 2.5-3.5 2 Because ethnic data is not always readily available, this report includes an eGFR for both -Americans and non- Americans. The National Kidney Disease Education Program (NKDEP) does not endorse the use of the MDRD equation for patients that are not between the ages of 18 and 70, are , have extremes of body size, muscle mass, or nutritional status, or are non- or non-. According to the National Kidney Foundation, irrespective of diagnosis, the stage of the disease is based on the level of kidney function: Stage Description GFR(mL/min/1.73 m(2)) 1 Kidney damage with normal or decreased GFR 90 2 Kidney damage with mild decrease in GFR 60-89 3 Moderate decrease in GFR 30-59 4 Severe decrease in GFR 15-29 5 Kidney failure <15 (or dialysis) Procedures Date Code Description Status 05/16/2019 31008 TKR Total Knee Replacement Completed 05/16/2019 93920 TKR Total Knee Replacement Completed 12/20/2018 533001620 Bone Mineral Density Test Completed 12/07/2018 53537 Inject/Drain Joint/Bursa Major W/O US Completed Medical Devices Description No Information Available Encounters Type Date Location Provider Dx Diagnosis Office Visit 04/12/2019 [facility] Monique Gore, M17.0 Bilateral primary 9:30a at [facility] osteoarthritis of knee M25.562 Pain in left knee M25.561 Pain in right knee M25.462 Effusion, left knee M25.461 Effusion, right knee Office Visit 12/07/2018 Sunil William, M17.11 Unilateral primary 1:[facility] at [facility] osteoarthritis, right [place] knee M17.12 Unilateral primary osteoarthritis, left knee Assessments Date Code Description Provider 05/31/2019 Z96.652 Presence of left artificial knee joint Monique Gore M.D. 05/31/2019 Z47.1 Aftercare following joint replacement surgery Monique Gore M.D. 05/16/2019 M17.12 Unilateral primary osteoarthritis, left knee CARLOS MANUEL Stokes 05/16/2019 M17.12 Unilateral primary osteoarthritis, left knee Monique Gore M.D. 05/08/2019 M17.0 Bilateral primary osteoarthritis of knee [...] Dez William M.D. Plan of Treatment Future Appointment(s):06/28/2019 11:00 am - Monique Gore M.D. at [facility]05/31/2019 - Monique Gore M.D.Z96.652 Presence of left artificial knee jointNew Therapy:Physical TherapyOccupational TherapyFollow up: Follow up: 4 tnlvxL53.1 Aftercare following joint replacement surgery Functional Status Description No Information Available Mental Status Description No Information Available Referrals Description No Information Available
--- OUTSIDE RECORDS SUMMARY | 2019-06-03 19:07 | XMS REPORT ---
:1955 Author Organization [facility] Care Team Providers Name Role Phone Unavailable Unavailable Unavailable Problems Condition Condition Condition Status Onset Resolution Last Treating Comments Name Details Category Date Date Treatment Clinician Date Presence of Presence of Diagnosis Active Francisco left left 2-05 Kraak artificial artificial [id number] knee joint knee joint Allergies, Adverse Reactions, Alerts Allergy Allergy Status Severity Reaction(s) Onset Inactive Treating Comments Name Type Date Date Clinician Unknown None Active Unknown None Unknown No Known Allergies For This Patient Medications Ordered Filled Start Stop Current Ordering Indication Dosage Frequency Signature Comments Components Medication Medication Date Date Medication? Clinician (SIG) Name Name No Known No Known No None None None Medications Medications For This For This Patient Patient Procedures This patient has no known procedures. Results This patient has no known results.
--- OUTSIDE RECORDS SUMMARY | 2019-06-03 19:07 | XMS REPORT ---
:1955 Author Organization [facility] Care Team Providers Name Role Phone Unavailable Unavailable Unavailable Problems Condition Condition Condition Status Onset Resolution Last Treating Comments Name Details Category Date Date Treatment Clinician Date Presence of Presence of Diagnosis Active Alison left left 2-05 Recinos artificial artificial knee joint knee joint Allergies, Adverse Reactions, [...]
--- OUTSIDE RECORDS SUMMARY | 2019-06-03 19:07 | XMS REPORT ---
:1955 Author Organization [facility] Care Team Providers Name Role Phone Unavailable [...]
[2019-06-03 19:08] LABS: ABS Lymphocytes 0.7 10^3/ul (1.0-4.8); ABS Monocytes 0.6 10^3/ul (0-0.8); ABS Neutrophils 5.1 10^3/ul (1.5-7.7); Eosinophil % 0.7 %; Hematocrit 31 % (35-47); Hemoglobin 10.6 g/dL (12.0-16.0); Lymphocyte % 10.6 %; Mean Corpuscular HGB Conc 34 g/dL (31-36); Mean Corpuscular Hemoglobin 31 pg (27-31); Mean Corpuscular Volume 89 fL (80-97); Mean Platelet Volume 6.5 fL (7.4-10.4); Platelet Count 447 10^3/uL (150-450); Red Blood Count 3.47 10^6 /uL (3.70-4.87); Red Cell Distribution Width 13 % (10-15); White Blood Count 6.5 10^3/uL (3.5-10.8)
[2019-06-03 19:12] LABS: INR 1.29 (0.82-1.09)
[2019-06-03 19:24] LABS: Albumin/Globulin Ratio 1.3 (1-3); BUN/Creatinine Ratio 14.6 (8-20); Calcium 9.1 mg/dL (8.6-10.3); EGFR African American 84.4 (>60); EGFR Non-African American 69.7 (>60); Globulin 3.2 g/dL (2-4); Potassium 4.4 mmol/L (3.5-5.0); Total Bilirubin 0.5 mg/dL (0.2-1.0); Total Protein 7.2 g/dL (6.4-8.9)
[2019-06-03 21:01] VITALS: BP 124/64
== END 2019-06-03 21:01 | disposition home or self-care (01) ==
LOC: ED 18:29
DX: M79.89 Other specified soft tissue disorders (principal); M96.89 Other intraoperative and postprocedural complications and disorders of the musculoskeletal system; E11.9 Type 2 diabetes mellitus without complications; I10 Essential (primary) hypertension; K21.9 Gastro-esophageal reflux disease without esophagitis; F32.9 Major depressive disorder, single episode, unspecified; F41.9 Anxiety disorder, unspecified; Z79.01 Long term (current) use of anticoagulants; Z79.899 Other long term (current) drug therapy
CPT/HCPCS: 36415; 80053; 85025; 85610; 99282

== ENCOUNTER 2019-06-26 17:10 | Observation (INO) | payer MEDICARE ==
--- OUTSIDE RECORDS SUMMARY | 2019-06-26 17:22 | XMS REPORT | Continuity of Care Document ---
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 Onset: 01/01/2015 Fracture Of Lower Leg Essential hypertension Jayjay Shelton M.D., [facility], [facility] Onset: 05/06/2016 Chest pain Jayjay Shelton M.D., [facility], [facility] Onset: 05/06/2016 Obesity Jayjay Shelton M.D., [facility], [facility] Onset: 05/15/2016 Difficulty breathing Rain Rubio DNP, RN, Onset: 05/11/2017 [place]- Periodic limb movement disorder Rain Rubio DNP, RN, Onset: 05/11/2017 [place] [place]-BC Insomnia Rain Rubio DNP, RN, Onset: 05/11/2017 [place]-BC Obstructive sleep apnea syndrome Rain Rubio DNP, RN, Onset: 05/25/2017 [place] [place]-BC Arthroplasty of knee Monique Gore M.D. Onset: 06/05/2019 Peroneal tendinitis, right leg Ayo Chavarria MD Onset: 09/20/2018 Localized, primary osteoarthritis Ayo Chavarria MD Onset: 11/26/2017 Social History Type Date Description Comments Sex Unknown Tobacco Use Start: Unknown Never Smoked Cigarettes Smoking Status Reviewed: 06/12/19 Never Smoked Cigarettes ETOH Use Drinks Alcoholic Beverages Rarely Tobacco Use Start: Unknown Patient has never smoked Recreational Drug Use Denies Drug Use Exercise Type/Frequency Exercises regularly Exercise Type/Frequency Exercises at a health club 4 times a week Allergies, Adverse Reactions, Alerts Description No Known Drug Allergies Medications Active Medications SIG Qnty Indications Ordering Date Provider Compression Stockings 20 s/p left 1units Z96.652 Monique Gore, 2019 Misc TKA M.D. Tramadol HCL 1 tab every 8 42tabs Monique Gore, 06/12/2019 50mg Tablets hours as needed M.D. for pain Cyclobenzaprine HCL 1 tablet by 30tabs Z96.652 Monique Gore, 06/05/2019 10mg mouth q8 hours M.D. Tablets as needed muscle spasms Eliquis take one tab by 14tabs Z96.652 Monique Gore, 06/05/2019 2.5mg Tablets mouth twice M.D. daily x 2 weeks Percocet 1-2 tabs by 70tabs Z96.652 Monique Gore, 06/01/2019 5-325mg Tablets mouth every 4-6 M.D. hours as needed post op pain. MDD 10. S/P left tka Hospital Bed s/p left TKA 1units Monique Gore, 05/31/2019 61" 195 lbs M.D. Metformin HCL 1 by mouth once Unknown 1000mg Tablets daily Glipizide ER 1 by mouth Unknown 10mg Tablets ER every day 24HR Lisinopril 1 by mouth Unknown 5mg Tablets every day Pioglitazone HCL 1 by mouth Unknown 30mg Tablets every day Amiloride HCL 1 tab by mouth Unknown 5mg Tablets every daily Zolpidem Tartrate take 1 tablet Unknown 5mg Tablets by mouth at bedtime for 10 days Medications Administered in Office [...] Available Vital Signs Date Vital Result Comment 06/12/2019 10:11am Height 61 inches 5'1" Weight 192.00 lb stated Heart Rate 72 /min BP Systolic 100 mmHg BP Diastolic 60 mmHg Respiratory Rate 12 /min Body Temperature 98.6 F Pain Level 10 BMI (Body Mass Index) 36.3 kg/m2 06/05/2019 9:18am Heart Rate 76 /min BP Systolic 112 mmHg BP Diastolic 70 mmHg Respiratory Rate 16 /min Pain Level 10 Results Test Acquired Date Facility Test Result H/L Range Note Inr/Protime 05/09/2019 [facility] Inr 0.97 Normal 0.82-1.[address] [place] [address] [phone] Laboratory test 05/09/2019 [facility] Partial 39.0 High 26.0- 38.[address] [address] PTT [phone] CBC Auto Diff 05/09/2019 [facility] White Blood 3.1 10^3/uL Low 3.5-10.[address] [place] [address] [phone] Red Blood Count 3.95 10^6/uL Normal 3.70-4.87 [...] Blood Cells % 0.1 Comp Metabolic 05/09/2019 [facility] Sodium 135 mmol/L Normal 135-145 Panel [address] [place] [address] [phone] Potassium 4.8 mmol/L Normal 3.5-5.0 Chloride 103 [...] 88.1 >60 2 Type & Screen 05/09/2019 [facility] Patient Blood Type O Positive [address] [place] [address] [phone] Antibody Screen NEGATIVE Urinalysis Profile 05/09/2019 [facility] Urine Color Straw [address] [place] [address] [phone] Urine Appearance Clear Urine Specific [place] 1.005 Low 1.010-1.030 Urine pH 5.0 Normal [...] dialysis) Procedures Date Code Description Status 05/16/2019 14367 TKR Total Knee Replacement Completed 05/16/2019 66534 TKR Total Knee Replacement Completed 12/20/2018 [id number] Bone Mineral Density Test Completed Medical Devices Description No Information Available Encounters Type Date Location Provider Dx Diagnosis Office Visit 04/12/2019 [facility] Monique Gore, M17.0 Bilateral primary 9:30a at [facility] osteoarthritis of knee M25.562 Pain in left knee M25.561 Pain in right knee M25.462 Effusion, left knee M25.461 Effusion, right knee Assessments Date Code Description Provider 06/12/2019 Z96.652 Presence of left artificial knee joint CARLOS MANUEL Stokes 06/12/2019 Z47.1 Aftercare following joint replacement surgery CARLOS MANUEL Stokes 06/05/2019 Z96.652 Presence of left artificial knee joint Monique Gore M.D. 06/05/2019 Z47.1 Aftercare following joint replacement surgery Monique Gore M.D. 06/05/2019 M25.562 Pain in left knee Monique Gore M.D. 06/05/2019 M25.462 Effusion, left knee Monique Gore M.D. 05/31/2019 Z96.652 Presence of left artificial knee joint Monique Gore M.D. 05/31/2019 Z47.1 Aftercare following joint replacement surgery Monique Gore M.D. 05/16/2019 M17.12 Unilateral primary osteoarthritis, left knee CARLOS MANUEL Stokes 05/16/2019 M17.12 Unilateral primary osteoarthritis, left knee Monique Gore M.D. 05/08/2019 M17.0 Bilateral primary osteoarthritis of knee Monique Gore M.D. 05/08/2019 M25.562 Pain in left knee Mariana [facility]iera[facility] 05/08/2019 M25.462 Effusion, left knee Monique Gore M.D. 05/08/2019 M17.12 Unilateral primary osteoarthritis, left knee Monique Gore M.D. 04/12/2019 M17.0 Bilateral primary osteoarthritis of knee Monique Gore M.D. 04/12/2019 M25.562 Pain in left knee Monique Gore M.D. 04/12/2019 M25.561 Pain in right knee Monique Gore M.D. 04/12/2019 M25.462 Effusion, left knee Monique Gore M.D. 04/12/2019 M25.461 Effusion, right knee Monique Gore M.D. Plan of Treatment Future Appointment(s):06/28/2019 11:00 am - Monique Gore M.D. at [facility] at [id number]/12/2019 - Paola Ferrara, PAZ96.652 Presence of left artificial knee jointNew Medication:Compression Stockings - 20/30 s/p left TKAFollow up:Follow up: 2 hycnqM34.1 Aftercare following joint replacement surgery Functional Status Description No Information Available Mental Status Description No Information Available Referrals Description No Information Available
--- OUTSIDE RECORDS SUMMARY | 2019-06-26 17:22 | XMS REPORT ---
:1955 Author Organization [facility] Care Team Providers Name Role Phone Unavailable Unavailable Unavailable Problems Condition Condition Condition Status Onset Resolution Last Treating Comments Name Details Category Date Date Treatment Clinician Date Aftercare Aftercare Diagnosis Active 0 Francisco following following 206 Kraak joint joint [id number] replacement replacement surgery surgery Type 2 Type 2 Diagnosis Active 2020-0 Francisco diabetes diabetes 1-24 Kraak mellitus mellitus [id number] without without complicatio complicatio ns ns Essential Essential Diagnosis Active Francisco (primary) (primary) 1-24 Kraak hypertensio hypertensio [id number] n n Fatty Fatty Diagnosis Active 20200 Francisco (change of) (change of) 1-24 Kraak liver, not liver, not [id number] elsewhere elsewhere classified classified Hyperlipide Hyperlipide Diagnosis Active 20200 Francisco bianca, bianca, 1-24 Kraak unspecified unspecified [id number] Obesity, Obesity, Diagnosis Active 0 Francisco unspecified unspecified 1-24 Kraak [id number] Anxiety Anxiety Diagnosis Active Francisco disorder, disorder, Kraak unspecified unspecified [id number] Restless Restless Diagnosis Active Francisco legs legs Kraak syndrome syndrome [id number] Sleep Sleep Diagnosis Active Francisco apnea, apnea, Kraak unspecified unspecified [id number] Gastro-esop Gastro-esop Diagnosis Active Francisco hageal hageal Kraak reflux reflux [id number] disease disease without without esophagitis esophagitis Presence of Presence of Diagnosis Active Francisco left left Kraak artificial artificial [id number] knee joint knee joint [facility] Diagnosis Active Francisco (current) (current) Kraak use of use of [id number] anticoagula anticoagula nts nts continuous churn 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 [facility] Diagnosis Active Francisco (current) (current) Kraak use of oral use of oral [id number] hypoglycemi hypoglycemi c drugs c drugs Pain frequent Pain Mgmt Resolve 2019-06-12 Sandy pain d 2-06 14:45:00 (Jairo) 11:10: [id number] Cardio edema Cardiovasc Resolve 2019-06-12 Sandy ular d 2-06 14:45:00 (Jairo) 11:10: [id number] Respiratory dyspnea Respirator Resolve 2019-06-12 Sandy present y d 2-06 14:45:00 (Jairo) 11:10: [id number] Endo/Jonathon glucose Endo/Jonathon Resolve 2019-06-12 Sandy testing d 2-06 14:45:00 (Jairo) dependence 11:10: [id number] Integument surgical Integument Resolve 2019-06-12 Sandy wound d 2-06 14:45:00 (Jairo) present 11:10: [id number] Integument skin Integument Resolve 2019-06-12 Sandy integrity d 2-06 14:45:00 (Jairo) risk 11:10: [id number] Elimination urinary Eliminatio Resolve 2019-06-12 Sandy incontinenc n d 2-06 14:45:00 (Jairo) e 11:10: [id number] Neuro confusion Neuro/Emot Resolve 2019-06-12 Sandy present ion d 2-06 14:45:00 (Jairo) 11:10: [id number] Neuro anxiety Neuro/Emot Resolve 2019-06-12 Sandy present ion d 2-06 14:45:00 (Jairo) 11:10: [id number] Activity ADL Activity Resolve 2019-06-12 Sandy assistance d 2-06 14:45:00 (Jairo) required 11:10: [id number] Activity self-care Activity Resolve 2019-06-12 Sandy deficit d 2-06 14:45:00 (Jairo) 11:10: Sandy [id number] Safety fall risk Safety Resolve 2019-06-12 Sandy factor d 2-06 14:45:00 (Jairo) present 11:10: Sandy [id number] Safety risk for Safety Resolve 2019-06-12 Sandy hospitaliza d 2-06 14:45:00 (Jairo) tion 11:10: Sandy [id number] Medication oral med Meds Resolve 2019-06-12 Sandy assistance d 2-06 14:45:00 (Jairo) required 11:10: Sandy [id number] Medication potential Meds Resolve 2019-06-12 Sandy clinically d 2-06 14:45:00 (Jairo) significant 11:10: Sandy medication 00 [id number] issue Musculoskel transfer Musculoske Resolve 2019-06-12 Sandy etal assistance letal d 2-06 14:45:00 (Jairo) required 11:10: Sandy [id number] Musculoskel requires Musculoske Resolve 2019-06-12 Sandy etal human letal d 2-06 14:45:00 (Jairo) assist to 11:10: Sandy leave home 00 [id number] Nutrition nutritional Nutrition Resolve 2019-06-12 Francisco restriction d 2-06 14:45:00 Kraak s 13:45: [id number] ROM ROM PT: ROM Resolve 2019-06-12 Francisco deficit: LE d 2-06 14:45:00 Kraak 13:45: [id number] 00 Strength/To strength PT: Resolve 2019-06-12 Francisco ne/Motor deficit: LE Strength d 2-06 14:45:00 Kraak Control 13:45: [id number] Balance/End balance/nursing project coordinator PT/OT: Resolve 2019-06-12 Francisco urance rdination Balance/En d 2-06 14:45:00 Kraak deficit durance 13:45: [id number] Balance/End endurance PT/OT: Resolve 2019-06-12 Francisco urance deficit Balance/En d 2-06 14:45:00 Kraak durance 13:45: [id number] Gait/Locomo gait PT/OT: Resolve 2019-06-12 Francisco tion deficit Gait/Locom d 2-06 14:45:00 Kraak problems otion 13:45: [id number] 00 Allergies, Adverse Reactions, Alerts Allergy Allergy Status Severity Reaction(s) Onset Inactive Treating Comments Name Type Date Date Clinician Unknown None Active Unknown None Unknown No Known Allergies For This Patient Medications Ordered Filled Start Stop Current Ordering Indication Dosage Frequency Signature Comments Components Medication Medication Date Date Medication? Clinician (SIG) Name Name amLODIPine amLODIPine Yes Bao Unknown Unknown 5 mg tablet 5 mg tablet 06-01 Monique CALVIN clonazePAM clonazePAM Yes Bao Unknown Unknown 0.5 mg 0.5 mg 06-01 ,Monique tablet tablet lisinopril lisinopril Yes Bao Unknown Unknown 5 mg tablet 5 mg tablet 06-01 MDMonique glipiZIDE glipiZIDE Yes Bao Unknown Unknown ER 2.5 mg ER 2.5 mg 06-01 FabianMonique tablet, tablet, extended extended release 24 release 24 hr hr metFORMIN metFORMIN Yes Bao Unknown Unknown 1,000 mg 1,000 mg 2 ,Monique tablet tablet pioglitazon pioglitazon Yes Bao Unknown Unknown e 30 mg e 30 mg 2 MDMonique tablet tablet oxyCODONE-a oxyCODONE-a Yes Bao Unknown Unknown cetaminophe cetaminophe 06-01 Monique CALVIN n 5 mg-325 n 5 mg-325 mg tablet mg tablet apixaban apixaban Yes Bao Unknown Unknown 2.5 mg 2.5 mg 2 MDMonique tablet tablet melatonin melatonin Yes Bao Unknown Unknown 10 mg 10 mg 06-01 MDMonique tablet tablet Vital Signs Vital Name Observation Time Observation Value Comments SYSTOLIC mm[Hg] 2019-06-13 18:10:27 100 mm[Hg] mm[Hg] Method: Sit SYSTOLIC mm[Hg] 2019-06-04 18:10:18 122 mm[Hg] mm[Hg] Method: Stand DIASTOLIC mm[Hg] 2019-06-13 18:10:27 54 mm[Hg] mm[Hg] Method: Sit DIASTOLIC mm[Hg] 2019-06-04 18:10:18 78 mm[Hg] mm[Hg] Method: Stand PULSE 2019-06-13 18:10:27 72 /min /min RESP RATE 2019-06-13 18:10:27 0 /min /min Procedures This patient has no known procedures. Results This patient has no known results.
--- OUTSIDE RECORDS SUMMARY | 2019-06-26 17:22 | XMS REPORT | Continuity of Care Document ---
:1955 External Reference #:[id number] Author Name Monique Gore M.D. (transmitted by agent of provider Destiny Recinos) Address [address] [place] [id number] Care Team Providers Name Role Phone Teofilo Pruett MD - Endocrinology, Care Team Information Watch Crystal Cutter [phone] Diabetes & Metabolism Problems Active Problems Provider Date Aftercare For Healing Traumatic Des Selby M.D. Onset: 01/01/2015 Fracture Of Lower Leg Essential hypertension Jayjay Shelton M.D., [facility], [facility] Onset: 05/06/2016 Chest pain Jayjay Shelton M.D., [facility], [facility] Onset: 05/06/2016 Obesity Jayjay Shelton M.D., [facility] Onset: 05/15/2016 Difficulty breathing Rain Rubio DNP, RN, Onset: 05/11/2017 MULTI CARE TECHNICIAN-BC Periodic limb movement disorder Rain Rubio DNP, RN, Onset: 05/11/2017 MULTI CARE TECHNICIAN-BC Insomnia Rain Rubio DNP, RN, Onset: 05/11/2017 MULTI CARE TECHNICIAN-BC Obstructive sleep apnea syndrome Rain Rubio DNP, RN, Onset: 05/25/2017 MULTI CARE TECHNICIAN-BC Arthroplasty of knee Monique Gore M.D. Onset: 06/05/2019 Peroneal tendinitis, right leg Ayo Chavarria MD Onset: 09/20/2018 Localized, primary osteoarthritis Ayo Chavarria MD Onset: 11/26/2017 Social History Type Date Description Comments Sex Unknown Tobacco Use Start: Unknown Never Smoked Cigarettes Smoking Status Reviewed: 06/19/19 Never Smoked Cigarettes ETOH Use Drinks Alcoholic Beverages Rarely Tobacco Use Start: Unknown Patient has never smoked Recreational Drug Use Denies Drug Use Exercise Type/Frequency Exercises regularly Exercise Type/Frequency Exercises at a health club 4 times a week Allergies, Adverse Reactions, Alerts Description No Known Drug Allergies Medications Active Medications SIG Qnty Indications Ordering Date Provider Compression Stockings s/p left 1units Z96.652 Monique Gore, 2019 Misc TKA M.D. Tramadol HCL 1 tab every 8 42tabs Monique Gore, 06/12/2019 50mg Tablets hours as needed M.D. for pain Cyclobenzaprine HCL Take 1 Tablet 30tabs Z96.652 Monique Gore, 06/05/2019 10mg By Mouth Every M.D. Tablets 8 Hours as Needed For Muscle Spasms. Maximum Daily Dose Is 3 Percocet 1-2 tabs by 70tabs Z96.652 Monique [...] by mouth at bedtime for 10 days History Medications Eliquis take one tab by 14tabs Z96.652 Monique Gore, 06/05/2019 - 2.5mg mouth twice M.D. 06/18/2019 Tablets daily x 2 weeks Medications Administered in Office Medication SIG Qnty [...] Available Vital Signs Date Vital Result Comment 06/19/2019 10:35am Height 61 inches 5'1" Weight 195.00 lb Heart Rate 96 /min Respiratory Rate 16 /min Body Temperature 97.1 F Pain Level 5 BMI (Body Mass Index) 36.8 kg/m2 06/12/2019 10:11am Height 61 inches 5'1" Weight 192.00 lb stated Heart Rate 72 /min BP Systolic 100 mmHg BP Diastolic 60 mmHg Respiratory Rate 12 /min Body Temperature 98.6 F Pain Level 10 BMI (Body Mass Index) 36.3 kg/m2 Results Test Acquired Date Facility Test Result H/L Range Note Inr/Protime 05/09/2019 Inr 0.97 Normal 0.82-1.[address] [place] [address] [phone] Laboratory test 05/09/2019 Partial 39.0 High 26.0- 38.[address] [place] [address] PTT [phone] CBC Auto Diff 05/09/2019 White Blood 3.1 10^3/uL Low 3.5-10.[address] [place] [address] [phone] Red Blood Count 3.95 10^6/uL Normal 3.70-4.87 [...] Blood Cells % 0.1 Comp Metabolic 05/09/2019 Sodium 135 mmol/L Normal 135-145 Panel [address] [place] [address] [phone] Potassium 4.8 mmol/L Normal 3.5-5.0 Chloride 103 [...] 88.1 >60 2 Type & Screen 05/09/2019 Patient Blood Type O Positive [address] [place] [address] [phone] Antibody Screen NEGATIVE Urinalysis Profile 05/09/2019 Urine Color Straw [address] [place] [address] [phone] Urine Appearance Clear Urine Specific Brandt 1.005 Low 1.010-1.030 Urine pH 5.0 Normal [...] dialysis) Procedures Date Code Description Status 05/16/2019 71298 TKR Total Knee Replacement Completed 05/16/2019 34755 TKR Total Knee Replacement Completed 12/20/2018 [id number] Bone Mineral Density Test Completed Medical Devices Description No Information Available Encounters Type Date Location Provider Dx Diagnosis Office Visit 04/12/2019 [facility] Monique Gore, M17.0 Bilateral primary 9:30a at [place] osteoarthritis of knee M25.562 Pain in left knee M25.561 Pain in right knee M25.462 Effusion, left knee M25.461 Effusion, right knee Assessments Date Code Description Provider 06/19/2019 Z96.652 Presence of left artificial knee joint Monique Gore M.D. 06/19/2019 M25.562 Pain in left knee Monique Gore M.D. 06/19/2019 M25.462 Effusion, left knee Monique Gore M.D. 06/19/2019 Z47.1 Aftercare following joint replacement surgery Monique Gore M.D. 06/12/2019 Z96.652 Presence of left artificial knee joint CARLOS MANUEL Stokes 06/12/2019 Z47.1 Aftercare following joint replacement surgery Paola Ferrara, CARLOS MANUEL 06/05/2019 Z96.652 Presence of left artificial knee joint Monique Gore M.D. 06/05/2019 Z47.1 Aftercare following joint replacement surgery Monique Gore M.D. 06/05/2019 M25.562 Pain in left knee Monique Gore, M.DToy 06/05/2019 M25.462 Effusion, left knee Rosa VieraDToy 05/31/2019 Z96.652 Presence of left artificial knee joint Monique Gore M.D. 05/31/2019 Z47.1 Aftercare following joint replacement surgery Monique Gore M.D. 05/16/2019 M17.12 Unilateral primary osteoarthritis, left knee CARLOS MANUEL Stokes 05/16/2019 M17.12 Unilateral primary osteoarthritis, left knee Mariana Viera.DToy 05/08/2019 M17.0 Bilateral primary osteoarthritis of knee Monique Gore M.D. 05/08/2019 M25.562 Pain in left knee Monique Gore, M.DToy 05/08/2019 M25.462 Effusion, left knee Monique Gore M.D. 05/08/2019 M17.12 Unilateral primary osteoarthritis, left knee Monique Gore , [place].DToy 04/12/2019 M17.0 Bilateral primary osteoarthritis of knee Monique Gore, M.DToy 04/12/2019 M25.562 Pain in left knee Mariana Viera.DToy 04/12/2019 M25.561 Pain in right knee Monique Gore, M.DToy 04/12/2019 M25.462 Effusion, left knee Monique Gore M.D. 04/12/2019 M25.461 Effusion, right knee Monique Gore M.D. Plan of Treatment Future Appointment(s):06/28/2019 11:00 am - Monique Gore M.D. at [facility]/19/2019 - Monique Gore M.D.Z96.652 Presence of left artificial knee jointFollow up:Follow up: 06/28/19M25.562 Pain in left kneeM25.462 Effusion, left kneeZ47.1 Aftercare following joint replacement surgery Functional Status Description No Information Available Mental Status Description No Information Available Referrals Description No Information Available
--- OUTSIDE RECORDS SUMMARY | 2019-06-26 17:22 | XMS REPORT ---
:1955 Author Organization [facility] Care Team Providers Name Role Phone Unavailable Unavailable Unavailable Problems Condition Condition Condition Status Onset Resolution Last Treating Comments Name Details Category Date Date Treatment Clinician Date Aftercare Aftercare Diagnosis Active 0 Francisco following following 2 Kraak joint joint [id number] replacement replacement surgery surgery Type 2 Type 2 Diagnosis Active 2020-0 Francisco diabetes diabetes 1-24 Kraak mellitus mellitus [id number] without without complicatio complicatio ns ns Essential Essential Diagnosis Active Francisco (primary) (primary) 1-24 Kraak hypertensio hypertensio [id number] n n Fatty Fatty Diagnosis Active 20200 Francisco (change of) (change of) 1-24 Kraak liver, not liver, not [id number] elsewhere elsewhere classified classified Hyperlipide Hyperlipide Diagnosis Active 20200 Francisco bianca, bianca, 1-24 Kraak unspecified unspecified [id number] Obesity, Obesity, Diagnosis Active 0 Francisco unspecified unspecified 1-24 Kraak [id number] Anxiety Anxiety Diagnosis Active Francisco disorder, disorder, Kraak unspecified unspecified [id number] Restless Restless Diagnosis Active Francisco legs legs Kraak syndrome syndrome [id number] Sleep Sleep Diagnosis Active Francisco apnea, apnea, Kraak unspecified unspecified [id number] Gastro-esop Gastro-esop Diagnosis Active Francisco hageal hageal Kraak reflux reflux [id number] disease disease without without esophagitis esophagitis Presence of Presence of Diagnosis Active Francisco left left Kraak artificial artificial [id number] knee joint knee joint USP USP Diagnosis Active Francisco (current) (current) Kraak use of use of [id number] anticoagula anticoagula 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 Diagnosis Active Francisco (current) (current) Kraak use of oral use of oral [id number] hypoglycemi hypoglycemi c drugs c drugs Pain frequent Pain Mgmt Active 2020-0 Sandy pain 2-06 (Jairo) 11:10: Sandy [id number] Cardio edema Cardiovasc Active 2020-0 Sanyd ular 2-06 (Jairo) 11:10: [id number] Respiratory dyspnea Respirator Active 2020-0 Sandy present y 2-06 (Jairo) 11:10: Sandy [id number] Endo/Jonathon glucose Endo/Jonathon Active 2020-0 Sandy testing 2-06 (Jairo) dependence 11:10: [id number] Integument surgical Integument Active 2020-0 Sandy wound 2-06 (Jairo) present 11:10: Sandy [id number] Integument skin Integument Active 2020-0 Sandy integrity 2-06 (Jairo) risk 11:10: Sandy [id number] Elimination urinary Eliminatio Active 2020-0 Sandy incontinenc n 2-06 (Jairo) e 11:10: Sandy [id number] Neuro confusion Neuro/Emot Active 2020-0 Sandy present ion 2-06 (Jairo) 11:10: Sandy [id number] Neuro anxiety Neuro/Emot Active 2020-0 Sandy present ion 2-06 (Jairo) 11:10: Sandy [id number] Activity ADL Activity Active 2020-0 Sandy assistance 2-06 (Jairo) required 11:10: Sandy [id number] Activity self-care Activity Active 2020-0 Sandy deficit 2-06 (Jairo) 11:10: Sandy [id number] Safety fall risk Safety Active 2020-0 Sandy factor 2-06 (Jairo) present 11:10: Sandy [id number] Safety risk for Safety Active 2020-0 Sandy hospitaliza 2-06 (Jairo) tion 11:10: Sandy [id number] Medication oral med Meds Active 2020-0 Sandy assistance 2-06 (Jairo) required 11:10: Sandy [id number] Medication potential Meds Active 2020-0 Sandy clinically 2-06 (Jairo) significant 11:10: Sandy medication [id number] issue Musculoskel transfer Musculoske Active 2020-0 Sandy etal assistance letal 2-06 (Jairo) required 11:10: Sandy [id number] Musculoskel requires Musculoske Active Sandy etal human letal 2-06 (Jairo) assist to 11:10: Sandy leave home [id number] Nutrition nutritional Nutrition Active Francisco restriction 2-06 Kraak s 13:45: [id number] ROM ROM PT: ROM Active Francisco deficit: LE 2-06 Kraak 13:45: [id number] 00 Strength/To strength PT: Active Francisco ne/Motor deficit: LE Strength 2-06 Kraak Control 13:45: [id number] 00 Balance/End balance/cafeteria cook PT/OT: Active Francisco urance rdination Balance/En 2-06 Kraak deficit durance 13:45: [id number] 00 Balance/End endurance PT/OT: Active Francisco urance deficit Balance/En 2-06 Kraak durance 13:45: [id number] 00 Gait/Locomo gait PT/OT: Active Francisco tion deficit Gait/Locom 2-06 Kraak problems otion 13:45: [id number] 00 Allergies, Adverse Reactions, Alerts Allergy Allergy [...] Unknown Unknown 0.5 mg 0.5 mg 06-01 Monique CALVIN tablet tablet lisinopril lisinopril Yes Bao Unknown Unknown 5 mg tablet 5 mg tablet 06-01 Monique CALVIN glipiZIDE glipiZIDE Yes Bao Unknown Unknown ER 2.5 mg ER 2.5 mg 06-01 Monique CALVIN tablet, tablet, extended extended release 24 release 24 hr hr metFORMIN metFORMIN Yes Bao Unknown Unknown 1,000 mg 1,000 mg 06-01 Monique CALVIN tablet tablet pioglitazon pioglitazon Yes Bao Unknown Unknown e 30 mg e 30 mg 06-01 Monique CALVIN tablet tablet oxyCODONE-a oxyCODONE-a Yes Bao Unknown Unknown cetaminophe cetaminophe 2- Monique CALVIN n 5 mg-325 n 5 mg-325 mg tablet mg tablet apixaban apixaban Yes Bao Unknown Unknown 2.5 mg 2.5 mg 2- Monique CALVIN tablet tablet melatonin melatonin Yes Bao Unknown Unknown 10 mg 10 mg 2- Monique CALVIN tablet tablet Vital Signs Vital Name Observation Time Observation Value Comments SYSTOLIC mm[Hg] 2019-06-09 18:10:23 96 mm[Hg] mm[Hg] Method: Sit SYSTOLIC mm[Hg] 2019-06-04 18:10:18 122 mm[Hg] mm[Hg] Method: Stand DIASTOLIC mm[Hg] 2019-06-09 18:10:23 64 mm[Hg] mm[Hg] Method: Sit DIASTOLIC mm[Hg] 2019-06-04 18:10:18 78 mm[Hg] mm[Hg] Method: Stand PULSE 2019-06-09 18:10:23 68 /min /min RESP RATE 2019-06-04 18:10:18 16 /min /min TEMP 2019-06-04 18:10:18 99 [degF] Procedures This patient has no known procedures. Results This patient has no known results.
--- OUTSIDE RECORDS SUMMARY | 2019-06-26 17:22 | XMS REPORT ---
:1955 Author Organization [facility] Care Team Providers Name Role Phone Unavailable Unavailable Unavailable Problems Condition Condition Condition Status Onset Resolution Last Treating Comments Name Details Category Date Date Treatment Clinician Date Aftercare Aftercare Diagnosis Active 0 Francisco following following 2 Kraak joint joint [id number] replacement replacement surgery surgery Type 2 Type 2 Diagnosis Active 2020-0 Francisco diabetes diabetes 1-24 Kraak mellitus mellitus [id number] without without complicatio complicatio ns ns Essential Essential Diagnosis Active Francisco (primary) (primary) 1-24 Kraak hypertensio hypertensio [id number] n n Fatty Fatty Diagnosis Active 20200 Francisco (change of) (change of) 1-24 Kraak liver, not liver, not [id number] elsewhere elsewhere classified classified Hyperlipide Hyperlipide Diagnosis Active 2020-0 Francisco bianca, bianca, 1-24 Kraak unspecified unspecified [id number] Obesity, Obesity, Diagnosis Active 0 Francisco unspecified unspecified 1-24 Kraak [id number] Anxiety Anxiety Diagnosis Active Francisco disorder, disorder, Kraak unspecified unspecified [id number] Restless Restless Diagnosis Active Francisco legs legs Kraak syndrome syndrome [id number] Sleep Sleep Diagnosis Active Francisco apnea, apnea, Kraak unspecified unspecified [id number] Gastro-esop Gastro-esop Diagnosis Active Francisco hageal hageal Kraak reflux reflux [id number] disease disease without without esophagitis esophagitis Presence of Presence of Diagnosis Active Francisco left left Kraak artificial artificial [id number] knee joint knee joint assisted assisted Diagnosis Active Francisco (current) (current) Kraak use of use of [id number] anticoagula 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 Diagnosis Active Francisco (current) (current) Kraak use of oral use of oral [id number] hypoglycemi hypoglycemi c drugs c drugs Pain frequent Pain Mgmt Resolve 2019-06-12 Sandy pain d 2-06 14:45:00 (Jairo) 11:10: [id number] Cardio edema Cardiovasc Resolve 2019-06-12 Sandy ular d 2-06 14:45:00 (Jairo) 11:10: [id number] Respiratory dyspnea Respirator Resolve 2019-06-12 Sandy present y d 2-06 14:45:00 (Jairo) 11:10: [id number] Endo/Jonathon glucose Endo/Jonathon Resolve 2019-06-12 Sandy testing d 2-06 14:45:00 (Jairo) dependence 11:10: [id number] Integument surgical Integument Resolve 2019-06-12 Sandy wound d 2-06 14:45:00 (Jairo) present 11:10: [id number] Integument skin Integument Resolve 2019-06-12 Sandy integrity d 2-06 14:45:00 (Jairo) risk 11:10: [id number] Elimination urinary Eliminatio Resolve 2019-06-12 Sandy incontinenc n d 2-06 14:45:00 (Jairo) e 11:10: [id number] Neuro confusion Neuro/Emot Resolve 2019-06-12 Sandy present ion d 2-06 14:45:00 (Jairo) 11:10: [id number] Neuro anxiety Neuro/Emot Resolve 2019-06-12 Sandy present ion d 2-06 14:45:00 (Jairo) 11:10: [id number] Activity ADL Activity Resolve 2019-06-12 Sandy assistance d 2-06 14:45:00 (Jairo) required 11:10: [id number] Activity self-care Activity Resolve 2019-06-12 Sandy deficit d 2-06 14:45:00 (Jairo) 11:10: Sandy [id number] Safety fall risk Safety Resolve 2019-06-12 Sandy factor d 2-06 14:45:00 (Jairo) present 11:10: Sandy [id number] Safety risk for Safety Resolve 2019-06-12 Sandy hospitaliza d 2-06 14:45:00 (Jairo) tion 11:10: Sandy [id number] Medication oral med Meds Resolve 2019-06-12 Sandy assistance d 2-06 14:45:00 (Jairo) required 11:10: Sandy [id number] Medication potential Meds Resolve 2019-06-12 Sandy clinically d 2-06 14:45:00 (Jairo) significant 11:10: Sandy medication 00 [id number] issue Musculoskel transfer Musculoske Resolve 2019-06-12 Sandy etal assistance letal d 2-06 14:45:00 (Jairo) required 11:10: Sandy [id number] Musculoskel requires Musculoske Resolve 2019-06-12 Sandy etal human letal d 2-06 14:45:00 (Jairo) assist to 11:10: Sandy leave home 00 [id number] Nutrition nutritional Nutrition Resolve 2019-06-12 Francisco restriction d 2-06 14:45:00 Kraak s 13:45: [id number] ROM ROM PT: ROM Resolve 2019-06-12 Francisco deficit: LE d 2-06 14:45:00 Kraak 13:45: [id number] 00 Strength/To strength PT: Resolve 2019-06-12 Francisco ne/Motor deficit: LE Strength d 2-06 14:45:00 Kraak Control 13:45: [id number] Balance/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
--- OUTSIDE RECORDS SUMMARY | 2019-06-26 17:22 | XMS REPORT ---
:1955 Author Organization [facility] Care Team Providers Name Role Phone Unavailable Unavailable Unavailable Problems Condition Condition Condition Status Onset Resolution Last Treating Comments Name Details Category Date Date Treatment Clinician Date Aftercare Aftercare Diagnosis Active 0 Francisco following following 206 Kraak joint joint [id number] replacement replacement surgery surgery Type 2 Type 2 Diagnosis Active 2020-0 Francisco diabetes diabetes 1-24 Kraak mellitus mellitus [id number] without without complicatio complicatio ns ns Essential Essential Diagnosis Active Francisco (primary) (primary) 1-24 Kraak hypertensio hypertensio [id number] n n Fatty Fatty Diagnosis Active 20200 Francisco (change of) (change of) 1-24 Kraak liver, not liver, not [id number] elsewhere elsewhere classified classified Hyperlipide Hyperlipide Diagnosis Active 20200 Francisco bianca, bianca, 1-24 Kraak unspecified unspecified [id number] Obesity, Obesity, Diagnosis Active 0 Francisco unspecified unspecified 1-24 Kraak [id number] Anxiety Anxiety Diagnosis Active Francisco disorder, disorder, Kraak unspecified unspecified [id number] Restless Restless Diagnosis Active Francisco legs legs Kraak syndrome syndrome [id number] Sleep Sleep Diagnosis Active Francisco apnea, apnea, Kraak unspecified unspecified [id number] Gastro-esop Gastro-esop Diagnosis Active Francisco hageal hageal Kraak reflux reflux [id number] disease disease without without esophagitis esophagitis Presence of Presence of Diagnosis Active Francisco left left Kraak artificial artificial [id number] knee joint knee joint long-term long-term Diagnosis Active Francisco (current) (current) Kraak use of use of [id number] anticoagula anticoagula 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 Diagnosis Active Francisco (current) (current) Kraak use of oral use of oral [id number] hypoglycemi hypoglycemi c drugs c drugs Pain frequent Pain Mgmt Resolve 2019-06-12 Sandy pain d 2-06 14:45:00 (Jairo) 11:10: [id number] Cardio edema Cardiovasc Resolve 2019-06-12 Sandy ular d 2-06 14:45:00 (Jairo) 11:10: [id number] Respiratory dyspnea Respirator Resolve 2019-06-12 Sandy present y d 2-06 14:45:00 (Jairo) 11:10: [id number] Endo/Jonathon glucose Endo/Jonathon Resolve 2019-06-12 Sandy testing d 2-06 14:45:00 (Jairo) dependence 11:10: [id number] Integument surgical Integument Resolve 2019-06-12 Sandy wound d 2-06 14:45:00 (Jairo) present 11:10: [id number] Integument skin Integument Resolve 2019-06-12 Sandy integrity d 2-06 14:45:00 (Jairo) risk 11:10: [id number] Elimination urinary Eliminatio Resolve 2019-06-12 Sandy incontinenc n d 2-06 14:45:00 (Jairo) e 11:10: [id number] Neuro confusion Neuro/Emot Resolve 2019-06-12 Sandy present ion d 2-06 14:45:00 (Jairo) 11:10: [id number] Neuro anxiety Neuro/Emot Resolve 2019-06-12 Sandy present ion d 2-06 14:45:00 (Jairo) 11:10: [id number] Activity ADL Activity Resolve 2019-06-12 Sandy assistance d 2-06 14:45:00 (Jairo) required 11:10: [id number] Activity self-care Activity Resolve 2019-06-12 Sandy deficit d 2-06 14:45:00 (Jairo) 11:10: Sandy [id number] Safety fall risk Safety Resolve 2019-06-12 Sandy factor d 2-06 14:45:00 (Jairo) present 11:10: Sandy [id number] Safety risk for Safety Resolve 2019-06-12 Sandy hospitaliza d 2-06 14:45:00 (Jairo) tion 11:10: Sandy [id number] Medication oral med Meds Resolve 2019-06-12 Sandy assistance d 2-06 14:45:00 (Jairo) required 11:10: Sandy [id number] Medication potential Meds Resolve 2019-06-12 Sandy clinically d 2-06 14:45:00 (Jairo) significant 11:10: Sandy medication 00 [id number] issue Musculoskel transfer Musculoske Resolve 2019-06-12 Sandy etal assistance letal d 2-06 14:45:00 (Jairo) required 11:10: Sandy [id number] Musculoskel requires Musculoske Resolve 2019-06-12 Sandy etal human letal d 2-06 14:45:00 (Jairo) assist to 11:10: Sandy leave home 00 [id number] Nutrition nutritional Nutrition Resolve 2019-06-12 Francisco restriction d 2-06 14:45:00 Kraak s 13:45: [id number] 00 ROM ROM PT: ROM Resolve 2019-06-12 Francisco deficit: LE d 2-06 14:45:00 Kraak 13:45: [id number] 00 Strength/To strength PT: Resolve 2019-06-12 Francisco ne/Motor deficit: LE Strength d 2-06 14:45:00 Kraak Control 13:45: [id number] 00 Balance/End balance/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
--- OUTSIDE RECORDS SUMMARY | 2019-06-26 17:22 | XMS REPORT ---
:1955 Author Organization [facility] Care Team Providers Name Role Phone Unavailable Unavailable Unavailable Problems Condition Condition Condition Status Onset Resolution Last Treating Comments Name Details Category Date Date Treatment Clinician Date Aftercare Aftercare Diagnosis Active 0 Francisco following following 2 Kraak joint joint [id number] replacement replacement surgery surgery Type 2 Type 2 Diagnosis Active 2020-0 Francisco diabetes diabetes 1-24 Kraak mellitus mellitus [id number] without without complicatio complicatio ns ns Essential Essential Diagnosis Active Francisco (primary) (primary) 1-24 Kraak hypertensio hypertensio [id number] n n Fatty Fatty Diagnosis Active 20200 Francisco (change of) (change of) 1-24 Kraak liver, not liver, not [id number] elsewhere elsewhere classified classified Hyperlipide Hyperlipide Diagnosis Active 2020-0 Franicsco bianca, bianca, 1-24 Kraak unspecified unspecified [id number] Obesity, Obesity, Diagnosis Active 0 Francisco unspecified unspecified 1-24 Kraak [id number] Anxiety Anxiety Diagnosis Active Francisco disorder, disorder, Kraak unspecified unspecified [id number] Restless Restless Diagnosis Active Francisco legs legs Kraak syndrome syndrome [id number] Sleep Sleep Diagnosis Active Francisco apnea, apnea, Kraak unspecified unspecified [id number] Gastro-esop Gastro-esop Diagnosis Active Francisco hageal hageal Kraak reflux reflux [id number] disease disease without without esophagitis esophagitis Presence of Presence of Diagnosis Active Francisco left left Kraak artificial artificial [id number] knee joint knee joint shelter shelter Diagnosis Active Francisco (current) (current) Kraak use of use of [id number] anticoagula anticoagula 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 Francisco (current) (current) Kraak use of oral use of oral [id number] hypoglycemi hypoglycemi c drugs c drugs Pain frequent Pain Mgmt Active 2020-0 Sandy pain 2-06 (Jairo) 11:10: Sandy [id number] Cardio edema Cardiovasc Active 2020-0 Sandy ular 2-06 (Jairo) 11:10: [id number] Respiratory dyspnea Respirator Active 2020-0 Sandy present y 2-06 (Jairo) 11:10: Sandy [id number] Endo/Jonathon glucose Endo/Jonathon Active 2020-0 Sandy testing 2-06 (Jairo) dependence 11:10: [id number] Integument surgical Integument Active 2020-0 Sandy wound 2-06 (Jairo) present 11:10: Sandy [id number] Integument skin Integument Active 2020-0 Sandy integrity 2-06 (Jairo) risk 11:10: Sandy [id number] Elimination urinary Eliminatio Active 2020-0 Sandy incontinenc n 2-06 (Jairo) e 11:10: Sandy [id number] Neuro confusion Neuro/Emot Active 2020-0 Sandy present ion 2-06 (Jairo) 11:10: Sandy [id number] Neuro anxiety Neuro/Emot Active 2020-0 Sandy present ion 2-06 (Jairo) 11:10: Sandy [id number] Activity ADL Activity Active 2020-0 Sandy assistance 2-06 (Jairo) required 11:10: Sandy [id number] Activity self-care Activity Active 2020-0 Sandy deficit 2-06 (Jairo) 11:10: Sandy [id number] Safety fall risk Safety Active 2020-0 Sandy factor 2-06 (Jairo) present 11:10: Sandy [id number] Safety risk for Safety Active 2020-0 Sandy hospitaliza 2-06 (Jairo) tion 11:10: Sandy [id number] Medication oral med Meds Active 2020-0 Sandy assistance 2-06 (Jairo) required 11:10: Sandy [id number] Medication potential Meds Active 2020-0 Sandy clinically 2-06 (Jairo) significant 11:10: Sandy medication [id number] issue Musculoskel transfer Musculoske Active 2020-0 Sandy etal assistance letal 2-06 (Jairo) required 11:10: Sandy [id number] Musculoskel requires Musculoske Active Sandy etal human letal 2-06 (Jairo) assist to 11:10: Sandy leave home [id number] Nutrition nutritional Nutrition Active Francisco restriction 2-06 Kraak s 13:45: [id number] 00 ROM ROM PT: ROM Active Francisco deficit: LE 2-06 Kraak 13:45: [id number] 00 Strength/To strength PT: Active Francisco ne/Motor deficit: LE Strength 2-06 Kraak Control 13:45: [id number] 00 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
--- OUTSIDE RECORDS SUMMARY | 2019-06-26 17:22 | XMS REPORT ---
:1955 Author Organization [facility] Care Team Providers Name Role Phone Unavailable Unavailable Unavailable Problems Condition Condition Condition Status Onset Resolution Last Treating Comments Name Details Category Date Date Treatment Clinician Date Aftercare Aftercare Diagnosis Active 0 Francisco following following 2 Kraak joint joint [id number] replacement replacement surgery surgery Type 2 Type 2 Diagnosis Active 2020-0 Francisco diabetes diabetes 1-24 Kraak mellitus mellitus [id number] without without complicatio complicatio ns ns Essential Essential Diagnosis Active Francisco (primary) (primary) 1-24 Kraak hypertensio hypertensio [id number] n n Fatty Fatty Diagnosis Active 20200 Francisco (change of) (change of) 1-24 Kraak liver, not liver, not [id number] elsewhere elsewhere classified classified Hyperlipide Hyperlipide Diagnosis Active 20200 Francisco bianca, bianca, 1-24 Kraak unspecified unspecified [id number] Obesity, Obesity, Diagnosis Active 0 Francisco unspecified unspecified 1-24 Kraak [id number] Anxiety Anxiety Diagnosis Active Francisco disorder, disorder, Kraak unspecified unspecified [id number] Restless Restless Diagnosis Active Francisco legs legs Kraak syndrome syndrome [id number] Sleep Sleep Diagnosis Active Francisco apnea, apnea, Kraak unspecified unspecified [id number] Gastro-esop Gastro-esop Diagnosis Active Francisco hageal hageal Kraak reflux reflux [id number] disease disease without without esophagitis esophagitis Presence of Presence of Diagnosis Active Francisco left left Kraak artificial artificial [id number] knee joint knee joint [facility] Diagnosis Active Francisco (current) (current) Kraak use of use of [id number] anticoagula 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 [facility] Diagnosis Active Francisco (current) (current) Kraak use of oral use of oral [id number] hypoglycemi hypoglycemi c drugs c drugs Pain frequent Pain Mgmt Active 2020-0 Sandy pain 2-06 (Jairo) 11:10: Sandy [id number] Cardio edema Cardiovasc Active 2020-0 Sandy ular 2-06 (Jairo) 11:10: [id number] Respiratory dyspnea Respirator Active 2020-0 Sandy present y 2-06 (Jairo) 11:10: Sandy [id number] Endo/Jonathon glucose Endo/Jonathon Active 2020-0 Sandy testing 2-06 (Jairo) dependence 11:10: [id number] Integument surgical Integument Active 2020-0 Sandy wound 2-06 (Jairo) present 11:10: Sandy [id number] Integument skin Integument Active 2020-0 Sandy integrity 2-06 (Jairo) risk 11:10: Sandy [id number] Elimination urinary Eliminatio Active 2020-0 Sandy incontinenc n 2-06 (Jairo) e 11:10: Sandy [id number] Neuro confusion Neuro/Emot Active 2020-0 Sandy present ion 2-06 (Jairo) 11:10: Sandy [id number] Neuro anxiety Neuro/Emot Active 2020-0 Sandy present ion 2-06 (Jairo) 11:10: Sandy [id number] Activity ADL Activity Active 2020-0 Sandy assistance 2-06 (Jairo) required 11:10: Sandy [id number] Activity self-care Activity Active 2020-0 Sandy deficit 2-06 (Jairo) 11:10: Sandy [id number] Safety fall risk Safety Active 2020-0 Sandy factor 2-06 (Jairo) present 11:10: Sandy [id number] Safety risk for Safety Active 2020-0 Sandy hospitaliza 2-06 (Jairo) tion 11:10: Sandy [id number] Medication oral med Meds Active 2020-0 Sandy assistance 2-06 (Jairo) required 11:10: Sandy [id number] Medication potential Meds Active 2020-0 Sandy clinically 2-06 (Jairo) significant 11:10: Sandy medication [id number] issue Musculoskel transfer Musculoske Active 2020-0 Sandy etal assistance letal 2-06 (Jairo) required 11:10: Sandy [id number] Musculoskel requires Musculoske Active Sandy etal human letal 2-06 (Jairo) assist to 11:10: Sandy leave home [id number] Nutrition nutritional Nutrition Active Francisco restriction 2-06 Kraak s 13:45: [id number] 00 ROM ROM PT: ROM Active Francisco deficit: LE 2-06 Kraak 13:45: [id number] 00 Strength/To strength PT: Active Francisco ne/Motor deficit: LE Strength 2-06 Kraak Control 13:45: [id number] 00 Balance/End balance/cook fish and chips PT/OT: Active Francisco urance rdination Balance/En 2-06 Kraak deficit durance 13:45: [id number] 00 Balance/End endurance PT/OT: Active Francisco urance deficit Balance/En 2-06 Kraak durance 13:45: [id number] 00 Gait/Locomo gait PT/OT: Active Francisco tion deficit Gait/Locom 2-06 Kraak problems otion 13:45: [id number] 00 Allergies, Adverse Reactions, Alerts Allergy Allergy [...]
--- OUTSIDE RECORDS SUMMARY | 2019-06-26 17:22 | XMS REPORT ---
:1955 Author Organization [facility] Care Team Providers Name Role Phone Unavailable Unavailable Unavailable Problems Condition Condition Condition Status Onset Resolution Last Treating Comments Name Details Category Date Date Treatment Clinician Date Aftercare Aftercare Diagnosis Active 0 Francisco following following 206 Kraak joint joint [id number] replacement replacement surgery surgery Type 2 Type 2 Diagnosis Active 2020-0 Francisco diabetes diabetes 1-24 Kraak mellitus mellitus [id number] without without complicatio complicatio ns ns Essential Essential Diagnosis Active Francisco (primary) (primary) 1-24 Kraak hypertensio hypertensio [id number] n n Fatty Fatty Diagnosis Active 20200 Francisco (change of) (change of) 1-24 Kraak liver, not liver, not [id number] elsewhere elsewhere classified classified Hyperlipide Hyperlipide Diagnosis Active 20200 Francisco bianca, bianca, 1-24 Kraak unspecified unspecified [id number] Obesity, Obesity, Diagnosis Active 0 Francisco unspecified unspecified 1-24 Kraak [id number] Anxiety Anxiety Diagnosis Active Francisco disorder, disorder, Kraak unspecified unspecified [id number] Restless Restless Diagnosis Active Francisco legs legs Kraak syndrome syndrome [id number] Sleep Sleep Diagnosis Active Francisco apnea, apnea, Kraak unspecified unspecified [id number] Gastro-esop Gastro-esop Diagnosis Active Francisco hageal hageal Kraak reflux reflux [id number] disease disease without without esophagitis esophagitis Presence of Presence of Diagnosis Active Francisco left left Kraak artificial artificial [id number] knee joint knee joint senior care senior care Diagnosis Active Francisco (current) (current) Kraak use of use of [id number] anticoagula anticoagula 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 Diagnosis Active Francisco (current) (current) Kraak use of oral use of oral [id number] hypoglycemi hypoglycemi c drugs c drugs Pain frequent Pain Mgmt Resolve 2019-06-12 Sandy pain d 2-06 14:45:00 (Jairo) 11:10: [id number] Cardio edema Cardiovasc Resolve 2019-06-12 Sandy ular d 2-06 14:45:00 (Jairo) 11:10: [id number] Respiratory dyspnea Respirator Resolve 2019-06-12 Sandy present y d 2-06 14:45:00 (Jairo) 11:10: [id number] Endo/Jonathon glucose Endo/Jonathon Resolve 2019-06-12 Sandy testing d 2-06 14:45:00 (Jairo) dependence 11:10: [id number] Integument surgical Integument Resolve 2019-06-12 Sandy wound d 2-06 14:45:00 (Jairo) present 11:10: [id number] Integument skin Integument Resolve 2019-06-12 Sandy integrity d 2-06 14:45:00 (Jairo) risk 11:10: [id number] Elimination urinary Eliminatio Resolve 2019-06-12 Sandy incontinenc n d 2-06 14:45:00 (Jairo) e 11:10: [id number] Neuro confusion Neuro/Emot Resolve 2019-06-12 Sandy present ion d 2-06 14:45:00 (Jairo) 11:10: [id number] Neuro anxiety Neuro/Emot Resolve 2019-06-12 Sandy present ion d 2-06 14:45:00 (Jairo) 11:10: [id number] Activity ADL Activity Resolve 2019-06-12 Sandy assistance d 2-06 14:45:00 (Jairo) required 11:10: [id number] Activity self-care Activity Resolve 2019-06-12 Sandy deficit d 2-06 14:45:00 (Jairo) 11:10: Sandy [id number] Safety fall risk Safety Resolve 2019-06-12 Sandy factor d 2-06 14:45:00 (Jairo) present 11:10: Sandy [id number] Safety risk for Safety Resolve 2019-06-12 Sandy hospitaliza d 2-06 14:45:00 (Jairo) tion 11:10: Sandy [id number] Medication oral med Meds Resolve 2019-06-12 Sandy assistance d 2-06 14:45:00 (Jairo) required 11:10: Sandy [id number] Medication potential Meds Resolve 2019-06-12 Sandy clinically d 2-06 14:45:00 (Jairo) significant 11:10: Sandy medication 00 [id number] issue Musculoskel transfer Musculoske Resolve 2019-06-12 Sandy etal assistance letal d 2-06 14:45:00 (Jairo) required 11:10: Sandy [id number] Musculoskel requires Musculoske Resolve 2019-06-12 Sandy etal human letal d 2-06 14:45:00 (Jairo) assist to 11:10: Sandy leave home 00 [id number] Nutrition nutritional Nutrition Resolve 2019-06-12 Francisco restriction d 2-06 14:45:00 Kraak s 13:45: [id number] 00 ROM ROM PT: ROM Resolve 2019-06-12 Francisco deficit: LE d 2-06 14:45:00 Kraak 13:45: [id number] 00 Strength/To strength PT: Resolve 2019-06-12 Francisco ne/Motor deficit: LE Strength d 2-06 14:45:00 Kraak Control 13:45: [id number] 00 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
--- OUTSIDE RECORDS SUMMARY | 2019-06-26 17:22 | XMS REPORT ---
:1955 Author Organization [facility] Care Team Providers Name Role Phone Unavailable Unavailable Unavailable Problems Condition Condition Condition Status Onset Resolution Last Treating Comments Name Details Category Date Date Treatment Clinician Date Aftercare Aftercare Diagnosis Active 0 Francisco following following 2 Kraak joint joint [id number] replacement replacement surgery surgery Type 2 Type 2 Diagnosis Active 2020-0 Francisco diabetes diabetes 1-24 Kraak mellitus mellitus [id number] without without complicatio complicatio ns ns Essential Essential Diagnosis Active Francisco (primary) (primary) 1-24 Kraak hypertensio hypertensio [id number] n n Fatty Fatty Diagnosis Active 20200 Francisco (change of) (change of) 1-24 Kraak liver, not liver, not [id number] elsewhere elsewhere classified classified Hyperlipide Hyperlipide Diagnosis Active 2020-0 Francisco bianca, bianca, 1-24 Kraak unspecified unspecified [id number] Obesity, Obesity, Diagnosis Active 0 Francisco unspecified unspecified 1-24 Kraak [id number] Anxiety Anxiety Diagnosis Active Francisco disorder, disorder, Kraak unspecified unspecified [id number] Restless Restless Diagnosis Active Francisco legs legs Kraak syndrome syndrome [id number] Sleep Sleep Diagnosis Active Francisco apnea, apnea, Kraak unspecified unspecified [id number] Gastro-esop Gastro-esop Diagnosis Active Francisco hageal hageal Kraak reflux reflux [id number] disease disease without without esophagitis esophagitis Presence of Presence of Diagnosis Active Francisco left left Kraak artificial artificial [id number] knee joint knee joint group home group home Diagnosis Active Francisco (current) (current) Kraak use of use of [id number] anticoagula anticoagula 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 Active Francisco (current) (current) Kraak use of oral use of oral [id number] hypoglycemi hypoglycemi c drugs c drugs Pain frequent Pain Mgmt Resolve 2019-06-12 Sandy pain d 2-06 14:45:00 (Jairo) 11:10: [id number] Cardio edema Cardiovasc Resolve 2019-06-12 Sandy ular d 2-06 14:45:00 (Jairo) 11:10: [id number] Respiratory dyspnea Respirator Resolve 2019-06-12 Sandy present y d 2-06 14:45:00 (Jairo) 11:10: [id number] Endo/Jonathon glucose Endo/Jonathon Resolve 2019-06-12 Sandy testing d 2-06 14:45:00 (Jairo) dependence 11:10: [id number] Integument surgical Integument Resolve 2019-06-12 Sandy wound d 2-06 14:45:00 (Jairo) present 11:10: [id number] Integument skin Integument Resolve 2019-06-12 Sandy integrity d 2-06 14:45:00 (Jairo) risk 11:10: [id number] Elimination urinary Eliminatio Resolve 2019-06-12 Sandy incontinenc n d 2-06 14:45:00 (Jairo) e 11:10: [id number] Neuro confusion Neuro/Emot Resolve 2019-06-12 Sandy present ion d 2-06 14:45:00 (Jairo) 11:10: [id number] Neuro anxiety Neuro/Emot Resolve 2019-06-12 Sandy present ion d 2-06 14:45:00 (Jairo) 11:10: [id number] Activity ADL Activity Resolve 2019-06-12 Sandy assistance d 2-06 14:45:00 (Jairo) required 11:10: [id number] Activity self-care Activity Resolve 2019-06-12 Sandy deficit d 2-06 14:45:00 (Jairo) 11:10: Sandy [id number] Safety fall risk Safety Resolve 2019-06-12 Sandy factor d 2-06 14:45:00 (Jairo) present 11:10: Sandy [id number] Safety risk for Safety Resolve 2019-06-12 Sandy hospitaliza d 2-06 14:45:00 (Jairo) tion 11:10: Sandy [id number] Medication oral med Meds Resolve 2019-06-12 Sandy assistance d 2-06 14:45:00 (Jairo) required 11:10: Sandy [id number] Medication potential Meds Resolve 2019-06-12 Sandy clinically d 2-06 14:45:00 (Jairo) significant 11:10: Sandy medication 00 [id number] issue Musculoskel transfer Musculoske Resolve 2019-06-12 Sandy etal assistance letal d 2-06 14:45:00 (Jairo) required 11:10: Sandy [id number] Musculoskel requires Musculoske Resolve 2019-06-12 Sandy etal human letal d 2-06 14:45:00 (Jairo) assist to 11:10: Sandy leave home 00 [id number] Nutrition nutritional Nutrition Resolve 2019-06-12 Francisco restriction d 2-06 14:45:00 Kraak s 13:45: [id number] 00 ROM ROM PT: ROM Resolve 2019-06-12 Francisco deficit: LE d 2-06 14:45:00 Kraak 13:45: [id number] 00 Strength/To strength PT: Resolve 2019-06-12 Francisco ne/Motor deficit: LE Strength d 2-06 14:45:00 Kraak Control 13:45: [id number] 00 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
--- OUTSIDE RECORDS SUMMARY | 2019-06-26 17:23 | XMS REPORT ---
:1955 Author Organization [facility] Care Team Providers Name Role Phone Unavailable Unavailable Unavailable Problems Condition Condition Condition Status Onset Resolution Last Treating Comments Name Details Category Date Date Treatment Clinician Date Aftercare Aftercare Diagnosis Active 0 Francisco following following 2 Kraak joint joint [id number] replacement replacement surgery surgery Type 2 Type 2 Diagnosis Active 2020-0 Francisco diabetes diabetes 1-24 Kraak mellitus mellitus [id number] without without complicatio complicatio ns ns Essential Essential Diagnosis Active Francisco (primary) (primary) 1-24 Kraak hypertensio hypertensio [id number] n n Fatty Fatty Diagnosis Active 20200 Francisco (change of) (change of) 1-24 Kraak liver, not liver, not [id number] elsewhere elsewhere classified classified Hyperlipide Hyperlipide Diagnosis Active 20200 Francisco bianca, bianca, 1-24 Kraak unspecified unspecified [id number] Obesity, Obesity, Diagnosis Active 0 Francisco unspecified unspecified 1-24 Kraak [id number] Anxiety Anxiety Diagnosis Active Francisco disorder, disorder, Kraak unspecified unspecified [id number] Restless Restless Diagnosis Active Francisco legs legs Kraak syndrome syndrome [id number] Sleep Sleep Diagnosis Active Francisco apnea, apnea, Kraak unspecified unspecified [id number] Gastro-esop Gastro-esop Diagnosis Active Francisco hageal hageal Kraak reflux reflux [id number] disease disease without without esophagitis esophagitis Presence of Presence of Diagnosis Active Francisco left left Kraak artificial artificial [id number] knee joint knee joint senior care senior care Diagnosis Active Francisco (current) (current) Kraak use of use of [id number] anticoagula 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 Diagnosis Active Francisco (current) (current) Kraak use of oral use of oral [id number] hypoglycemi hypoglycemi c drugs c drugs Pain frequent Pain Mgmt Active 2020-0 Sandy pain 2-06 (Jairo) 11:10: Sandy [id number] Cardio edema Cardiovasc Active 2020-0 Sandy ular 2-06 (Jairo) 11:10: [id number] Respiratory dyspnea Respirator Active 2020-0 Sandy present y 2-06 (Jairo) 11:10: Sandy [id number] Endo/Jonathon glucose Endo/Jonathon Active 2020-0 Sandy testing 2-06 (Jairo) dependence 11:10: [id number] Integument surgical Integument Active 2020-0 Sandy wound 2-06 (Jairo) present 11:10: Sandy [id number] Integument skin Integument Active 2020-0 Sandy integrity 2-06 (Jairo) risk 11:10: Sandy [id number] Elimination urinary Eliminatio Active 2020-0 Sandy incontinenc n 2-06 (Jairo) e 11:10: Sandy [id number] Neuro confusion Neuro/Emot Active 2020-0 Sandy present ion 2-06 (Jairo) 11:10: Sandy [id number] Neuro anxiety Neuro/Emot Active 2020-0 Sandy present ion 2-06 (Jairo) 11:10: Sandy [id number] Activity ADL Activity Active 2020-0 Sandy assistance 2-06 (Jairo) required 11:10: Sandy [id number] Activity self-care Activity Active 2020-0 Sandy deficit 2-06 (Jairo) 11:10: Sandy [id number] Safety fall risk Safety Active 2020-0 Sandy factor 2-06 (Jairo) present 11:10: Sandy [id number] Safety risk for Safety Active 2020-0 Sandy hospitaliza 2-06 (Jairo) tion 11:10: Sandy [id number] Medication oral med Meds Active 2020-0 Sandy assistance 2-06 (Jairo) required 11:10: Sandy [id number] Medication potential Meds Active 2020-0 Sandy clinically 2-06 (Jairo) significant 11:10: Sandy medication [id number] issue Musculoskel transfer Musculoske Active 2020-0 Sandy etal assistance letal 2-06 (Jairo) required 11:10: Sandy [id number] Musculoskel requires Musculoske Active Sandy etal human letal 2-06 (Jairo) assist to 11:10: Sandy leave home [id number] Nutrition nutritional Nutrition Active Francisco restriction 2-06 Kraak s 13:45: [id number] 00 ROM ROM PT: ROM Active Francisco deficit: LE 2-06 Kraak 13:45: [id number] 00 Strength/To strength PT: Active Francisco ne/Motor deficit: LE Strength 2-06 Kraak Control 13:45: [id number] 00 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 PT/OT: Active Francisco urance rdination Balance/En 2-06 Kraak deficit durance 13:45: [id number] 00 Balance/End endurance PT/OT: Active Francisco urance deficit Balance/En 2-06 Kraak durance 13:45: [id number] 00 Gait/Locomo gait PT/OT: Active Francisco tion deficit Gait/Locom 2-06 Kraak problems otion 13:45: [id number] 00 Allergies, Adverse Reactions, Alerts Allergy Allergy [...] Unknown Unknown 2.5 mg 2.5 mg 2 Monique CALVIN tablet tablet melatonin melatonin Yes Bao Unknown Unknown 10 mg 10 mg 2- Monique CALVIN tablet tablet Vital Signs Vital Name Observation Time Observation Value Comments SYSTOLIC mm[Hg] 2019-06-04 18:10:18 120 mm[Hg] mm[Hg] Method: Sit SYSTOLIC mm[Hg] 2019-06-04 18:10:18 122 mm[Hg] mm[Hg] Method: Stand DIASTOLIC mm[Hg] 2019-06-04 18:10:18 70 mm[Hg] mm[Hg] Method: Sit DIASTOLIC mm[Hg] 2019-06-04 18:10:18 78 mm[Hg] mm[Hg] Method: Stand PULSE 2019-06-04 18:10:18 96 /min /min RESP RATE 2019-06-04 18:10:18 16 /min /min TEMP 2019-06-04 18:10:18 99 [degF] Procedures This patient has no known procedures. Results This patient has no known results.
--- OUTSIDE RECORDS SUMMARY | 2019-06-26 17:23 | XMS REPORT ---
:1955 Author Organization [facility] Care Team Providers Name Role Phone Unavailable Unavailable Unavailable Problems Condition Condition Condition Status Onset Resolution Last Treating Comments Name Details Category Date Date Treatment Clinician Date Aftercare Aftercare Diagnosis Active 0 Francisco following following 206 Kraak joint joint [id number] replacement replacement surgery surgery Type 2 Type 2 Diagnosis Active 2020-0 Francisco diabetes diabetes 1-24 Kraak mellitus mellitus [id number] without without complicatio complicatio ns ns Essential Essential Diagnosis Active Francisco (primary) (primary) 1-24 Kraak hypertensio hypertensio [id number] n n Fatty Fatty Diagnosis Active 20200 Francisco (change of) (change of) 1-24 Kraak liver, not liver, not [id number] elsewhere elsewhere classified classified Hyperlipide Hyperlipide Diagnosis Active 2020-0 Francisco bianca, bianca, 1-24 Kraak unspecified unspecified [id number] Obesity, Obesity, Diagnosis Active 0 Francisco unspecified unspecified 1-24 Kraak [id number] Anxiety Anxiety Diagnosis Active Francisco disorder, disorder, Kraak unspecified unspecified [id number] Restless Restless Diagnosis Active Francisco legs legs Kraak syndrome syndrome [id number] Sleep Sleep Diagnosis Active Francisco apnea, apnea, Kraak unspecified unspecified [id number] Gastro-esop Gastro-esop Diagnosis Active Francisco hageal hageal Kraak reflux reflux [id number] disease disease without without esophagitis esophagitis Presence of Presence of Diagnosis Active Francisco left left Kraak artificial artificial [id number] knee joint knee joint [facility] Diagnosis Active Francisco (current) (current) Kraak use of use of [id number] anticoagula anticoagula 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 [facility] Diagnosis Active Francisco (current) (current) Kraak use of oral use of oral [id number] hypoglycemi hypoglycemi c drugs c drugs Pain frequent Pain Mgmt Active 2020-0 Sandy pain 2-06 (Jairo) 11:10: Sandy [id number] Cardio edema Cardiovasc Active 2020-0 Sandy ular 2-06 (Jairo) 11:10: [id number] Respiratory dyspnea Respirator Active 2020-0 Sandy present y 2-06 (Jairo) 11:10: Sandy [id number] Endo/Jonathon glucose Endo/Jonathon Active 2020-0 Sandy testing 2-06 (Jairo) dependence 11:10: [id number] Integument surgical Integument Active 2020-0 Sandy wound 2-06 (Jairo) present 11:10: Sandy [id number] Integument skin Integument Active 2020-0 Sandy integrity 2-06 (Jairo) risk 11:10: Sandy [id number] Elimination urinary Eliminatio Active 2020-0 Sandy incontinenc n 2-06 (Jairo) e 11:10: Sandy [id number] Neuro confusion Neuro/Emot Active 2020-0 Sandy present ion 2-06 (Jairo) 11:10: Sandy [id number] Neuro anxiety Neuro/Emot Active 2020-0 Sandy present ion 2-06 (Jairo) 11:10: Sandy [id number] Activity ADL Activity Active 2020-0 Sandy assistance 2-06 (Jairo) required 11:10: Sandy [id number] Activity self-care Activity Active 2020-0 Sandy deficit 2-06 (Jairo) 11:10: Sandy [id number] Safety fall risk Safety Active 2020-0 Sandy factor 2-06 (Jairo) present 11:10: Sandy [id number] Safety risk for Safety Active 2020-0 Sandy hospitaliza 2-06 (Jairo) tion 11:10: Sandy [id number] Medication oral med Meds Active 2020-0 Sandy assistance 2-06 (Jairo) required 11:10: Sandy [id number] Medication potential Meds Active 2020-0 Sandy clinically 2-06 (Jairo) significant 11:10: Sandy medication [id number] issue Musculoskel transfer Musculoske Active 2020-0 Sandy etal assistance letal 2-06 (Jairo) required 11:10: Sandy [id number] Musculoskel requires Musculoske Active Sandy etal human letal 2-06 (Jairo) assist to 11:10: Sandy leave home [id number] Nutrition nutritional Nutrition Active Francisco restriction 2-06 Kraak s 13:45: [id number] ROM ROM PT: ROM Active Francisco deficit: LE 2-06 Kraak 13:45: [id number] Strength/To strength PT: Active Francisco ne/Motor deficit: LE Strength 2-06 Kraak Control 13:45: [id number] Balance/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
--- OUTSIDE RECORDS SUMMARY | 2019-06-26 17:23 | XMS REPORT ---
:1955 Author Organization [facility] Care Team Providers Name Role Phone Unavailable Unavailable Unavailable Problems Condition Condition Condition Status Onset Resolution Last Treating Comments Name Details Category Date Date Treatment Clinician Date Presence of Presence of Diagnosis Active Francisco left left 2-05 Kraak artificial artificial [id number] knee joint knee joint Allergies, Adverse Reactions, [...]
--- OUTSIDE RECORDS SUMMARY | 2019-06-26 17:23 | XMS REPORT ---
:1955 Author Organization [facility] Care Team Providers Name Role Phone Unavailable Unavailable Unavailable Problems Condition Condition Condition Status Onset Resolution Last Treating Comments Name Details Category Date Date Treatment Clinician Date Aftercare Aftercare Diagnosis Active 0 Francisco following following 206 Kraak joint joint [id number] replacement replacement surgery surgery Type 2 Type 2 Diagnosis Active 2020-0 Francisco diabetes diabetes 1-24 Kraak mellitus mellitus [id number] without without complicatio complicatio ns ns Essential Essential Diagnosis Active Francisco (primary) (primary) 1-24 Kraak hypertensio hypertensio [id number] n n Fatty Fatty Diagnosis Active 20200 Francisco (change of) (change of) 1-24 Kraak liver, not liver, not [id number] elsewhere elsewhere classified classified Hyperlipide Hyperlipide Diagnosis Active 2020-0 Francisco bianca, bianca, 1-24 Kraak unspecified unspecified [id number] Obesity, Obesity, Diagnosis Active 0 Francisco unspecified unspecified 1-24 Kraak [id number] Anxiety Anxiety Diagnosis Active Francisco disorder, disorder, Kraak unspecified unspecified [id number] Restless Restless Diagnosis Active Francisco legs legs Kraak syndrome syndrome [id number] Sleep Sleep Diagnosis Active Francisco apnea, apnea, Kraak unspecified unspecified [id number] Gastro-esop Gastro-esop Diagnosis Active Francisco hageal hageal Kraak reflux reflux [id number] disease disease without without esophagitis esophagitis Presence of Presence of Diagnosis Active Francisco left left Kraak artificial artificial [id number] knee joint knee joint intermediate intermediate Diagnosis Active Francisco (current) (current) Kraak use of use of [id number] anticoagula anticoagula nts nts 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 Diagnosis Active Francisco (current) (current) Kraak use of oral use of oral [id number] hypoglycemi hypoglycemi c drugs c drugs Pain frequent Pain Mgmt Active 2020-0 Sandy pain 2-06 (Jairo) 11:10: Sandy [id number] Cardio edema Cardiovasc Active 2020-0 Sandy ular 2-06 (Jairo) 11:10: [id number] Respiratory dyspnea Respirator Active 2020-0 Sandy present y 2-06 (Jairo) 11:10: Sandy [id number] Endo/Jonathon glucose Endo/Jonathon Active 2020-0 Sandy testing 2-06 (Jairo) dependence 11:10: [id number] Integument surgical Integument Active 2020-0 Sandy wound 2-06 (Jairo) present 11:10: Sandy [id number] Integument skin Integument Active 2020-0 Sandy integrity 2-06 (Jairo) risk 11:10: Sandy [id number] Elimination urinary Eliminatio Active 2020-0 Sandy incontinenc n 2-06 (Jairo) e 11:10: Sandy [id number] Neuro confusion Neuro/Emot Active 2020-0 Sandy present ion 2-06 (Jairo) 11:10: Sandy [id number] Neuro anxiety Neuro/Emot Active 2020-0 Sandy present ion 2-06 (Jairo) 11:10: Sandy [id number] Activity ADL Activity Active 2020-0 Sandy assistance 2-06 (Jairo) required 11:10: Sandy [id number] Activity self-care Activity Active 2020-0 Sandy deficit 2-06 (Jiaro) 11:10: Sandy [id number] Safety fall risk Safety Active 2020-0 Sandy factor 2-06 (Jairo) present 11:10: Sandy [id number] Safety risk for Safety Active 2020-0 Sandy hospitaliza 2-06 (Jairo) tion 11:10: Sandy [id number] Medication oral med Meds Active 2020-0 Sandy assistance 2-06 (Jairo) required 11:10: Sandy [id number] Medication potential Meds Active 2020-0 Sandy clinically 2-06 (Jairo) significant 11:10: Sandy medication [id number] issue Musculoskel transfer Musculoske Active 2020-0 Sandy etal assistance letal 2-06 (Jairo) required 11:10: Sandy [id number] Musculoskel requires Musculoske Active Sandy etal human letal 2-06 (Jairo) assist to 11:10: Sandy leave home [id number] Nutrition nutritional Nutrition Active Francisco restriction 2-06 Kraak s 13:45: [id number] 00 ROM ROM PT: ROM Active Francisco deficit: LE 2-06 Kraak 13:45: [id number] Strength/To strength PT: Active Francisco ne/Motor deficit: LE Strength 2-06 Kraak Control 13:45: [id number] 00 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
--- OUTSIDE RECORDS SUMMARY | 2019-06-26 17:23 | XMS REPORT ---
:1955 Author Organization [facility] Care Team Providers Name Role Phone Unavailable Unavailable Unavailable Problems Condition Condition Condition Status Onset Resolution Last Treating Comments Name Details Category Date Date Treatment Clinician Date Presence of Presence of Diagnosis Active 2020-0 Francisco left left 2-05 Kraak artificial artificial [id number] knee joint knee joint Pain frequent Pain Mgmt Active 2020-0 Sandy pain 2-06 (Jairo) 11:10: Vika [id number] Cardio edema Cardiovasc Active 2020-0 Sandy ular 2-06 (Jairo) 11:10: Vika [id number] Respiratory dyspnea Respirator Active 2020-0 Sandy present y 2-06 (Jairo) 11:10: Sandy [id number] Endo/Jonathon glucose Endo/Jonathon Active 2020-0 Sandy testing 2-06 (Jairo) dependence 11:10: Sandy [id number] Integument surgical Integument Active 2020-0 Sandy wound 2-06 (Jairo) present 11:10: Sandy [id number] Integument skin Integument Active 2020-0 Sandy integrity 2-06 (Jairo) risk 11:10: Sandy [id number] Elimination urinary Eliminatio Active 2020-0 Sandy incontinenc n 2-06 (Jairo) e 11:10: Sandy [id number] Neuro confusion Neuro/Emot Active 2020-0 Sandy present ion 2-06 (Jairo) 11:10: Vika [id number] Neuro anxiety Neuro/Emot Active 2020-0 Sandy present ion 2-06 (Jairo) 11:10: Vika [id number] Activity ADL Activity Active 2020-0 Sandy assistance 2-06 (Jairo) required 11:10: Vika [id number] Activity self-care Activity Active 2020-0 Sandy deficit 2-06 (Jairo) 11:10: Vika [id number] Safety fall risk Safety Active 2020-0 Sandy factor 2-06 (Jairo) present 11:10: Sandy [id number] Safety risk for Safety Active 2020-0 Sandy hospitaliza 2- (Jairo) tion 11:10: Sandy [id number] Medication oral med Meds Active 0 Sandy assistance 2- (Jairo) required 11:10: Sandy [id number] Medication potential Meds Active 2019-0 Sandy clinically 2- (Jairo) significant 11:10: Sandy medication [id number] issue Musculoskel transfer Musculoske Active 2019-0 Sandy etal assistance letal 2 (Jairo) required 11:10: Sandy [id number] Musculoskel requires Musculoske Active 2020-0 Sandy etal human letal 2 (Jairo) assist to 11:10: Sandy leave home [id number] Nutrition nutritional Nutrition Active Francisco restriction 2-06 Kraak s 13:45: [id number] 00 ROM ROM PT: ROM Active Francisco deficit: LE 2-06 Kraak 13:45: [id number] 00 Strength/To strength PT: Active Francisco ne/Motor deficit: LE Strength 2-06 Kraak Control 13:45: [id number] 00 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/OT: Active 2020-0 Francisco urance rdination Balance/En 2-06 Kraak deficit durance 13:45: [id number] 00 Balance/End endurance PT/OT: Active 2020-0 Francisco urance deficit Balance/En 2-06 Kraak durance 13:45: [id number] 00 Gait/Locomo gait PT/OT: Active 2020-0 Francisco tion deficit Gait/Locom 2-06 Kraak problems otion 13:45: [id number] 00 Allergies, Adverse Reactions, Alerts Allergy Allergy [...] Unknown 5 mg tablet 5 mg tablet 2- MD,Monique clonazePAM clonazePAM Yes Bao Unknown Unknown 0.5 mg 0.5 mg 2 MD,Monique tablet tablet lisinopril lisinopril Yes Bao Unknown Unknown 5 mg tablet 5 mg tablet 06-01 MD,Monique glipiZIDE glipiZIDE Yes Bao Unknown Unknown ER 2.5 mg ER 2.5 mg 2 MD,Monique tablet, tablet, extended extended release 24 release 24 hr hr metFORMIN metFORMIN Yes Bao Unknown Unknown 1,000 mg 1,000 mg 06-01 MD,Monique tablet tablet pioglitazon pioglitazon Yes Bao Unknown Unknown e 30 mg e 30 mg 06-01 MD,Monique tablet tablet oxyCODONE-a oxyCODONE-a Yes Bao Unknown Unknown cetaminophe cetaminophe 06-01 MD,Monique n 5 mg-325 n 5 mg-325 mg tablet mg tablet apixaban apixaban Yes Bao Unknown Unknown 2.5 mg 2.5 mg 06-01 MD,Monique tablet tablet melatonin melatonin Yes Bao Unknown Unknown 10 mg 10 mg 06-01 MD,Monique tablet tablet Vital Signs Vital Name Observation [...]
--- NOTE | 2019-06-26 17:43 | ED ---
Complex/Multi-Sys Presentation - HPI Summary HPI Summary: Patient is a 64 y/o F presenting to the ED via EMS for a chief complaint of near syncope and left knee pain. Patient is present with her . Patient states that she was at her PCP's office on 06/26/19 when she felt dizziness and felt she would have a syncopal episode while walking to the bathroom. She was placed in a wheelchair by staff at the office and EMS was called. Patient denies falling at that time. Patient also complains of nausea and left knee pain that began on 06/22/19. Patient denies fever, chest pain, shortness of breath, abdominal pain, vomiting, dysuria, or urinary burning. On 06/22/19, patient was receiving physical therapy for her knee after having a left knee replacement in April 2019. During the physical therapy, the patient had pain in the knee after the therapist stretched the left LE. Patient took Tramadol for the left knee pain at 09:00 on 06/26/19. Patient denies taking a blood thinner. She takes medication for HTN, DM, and anxiety. Patient denies alcohol, tobacco, or drug use. Patients medication reviewed this visit. - History Of Current Complaint Chief Complaint: EDDizziness Time Seen by Provider: 06/26/19 17:28 Hx Obtained From: Patient Onset/Duration: Sudden Onset, Still Present Timing: Constant Severity Currently: Moderate Severity Initially: Moderate Associated Signs And Symptoms: Positive: Dizziness, Nausea. Negative: SOB, Chest Pain, Vomiting, Abdominal Pain, Dysuria, Fever - Allergies/Home Medications Allergies/Adverse Reactions: Allergies Allergy/AdvReac Type Severity Reaction Status Date / Time No Known Allergies Allergy Verified 06/03/19 18:44 Home Medications: Home Medications Pioglitazone TAB* [Actos TAB*] 30 mg PO QAM 05/01/16 [History Confirmed 06/26/19 ] glipiZIDE TAB.XL* [Glucotrol Xl*] 2.5 mg PO 1800 05/01/16 [History Confirmed 06/15] metFORMIN* [Glucophage 1000 MG TAB *] 1,000 mg PO 1800 05/01/16 [History Confirmed 06/26/19] Lisinopril TAB* [Prinivil TAB 5 MG*] 5 mg PO QAM 08/11/17 [History Confirmed 06/15] clonazePAM TAB(*) [Klonopin TAB(*)] 0.5 mg PO BID PRN 08/11/17 [History Confirmed 06/26/19] amLODIPine TAB* [Norvasc 5 mg TAB*] 5 mg PO QPM 01/21/19 [History Confirmed 06/15] Calcium Carbonate [Tums] 1 tab PO DAILY PRN 05/09/19 [History Confirmed 06/26/19 ] Inulin/Chromium Picolinate [Fiber Gummies] 1 each PO 1800 05/09/19 [History Confirmed 06/26/19] Multivitamin [Multivitamins] 1 tab PO BID 05/09/19 [History Confirmed 06/26/19] Apixaban* [Eliquis*] 2.5 mg PO BID tab 05/19/19 [Rx Confirmed 06/26/19] oxyCODONE/Acetamin 5/325 MG* [Percocet 5/325 TAB*] 2 tab PO Q4H PRN tab [Rx Confirmed 06/26/19] PMH/Surg Hx/FS Hx/Imm Hx Previously Healthy: Yes Endocrine/Hematology History: Reports: Hx Diabetes Denies: Hx Anemia Cardiovascular History: Reports: Hx Hypertension Denies: Hx Pacemaker/ICD, Other Cardiovascular Problems/Disorders Respiratory History: Reports: Hx Sleep Apnea - NO MACHINE Denies: Other Respiratory Problems/Disorders GI History: Reports: Hx Gastroesophageal Reflux Disease Denies: Hx Jaundice, Other GI Disorders Musculoskeletal History: Reports: Hx Arthritis - KNEES Sensory History: Reports: Hx Cataracts - taran, Hx Contacts or Glasses - glasses Denies: Hx Legally Blind, Hx Deafness, Hx Hearing Aid Opthamlomology History: Reports: Hx Cataracts - taran, Hx Contacts or Glasses - glasses Denies: Hx Legally Blind EENT History: Denies: Hx Deafness Neurological History: Denies: Hx CVA, Hx Migraine, Other Neuro Impairments/Disorders Psychiatric History: Reports: Hx Anxiety - on meds, Hx Depression, Hx Panic Disorder - a little nervous - Cancer History Cancer Type, Location and Year: denies - Surgical History Surgical History: Yes Surgery Procedure, Year, and Place: pancreatic cyst, left knee replacement 2020 Hx Anesthesia Reactions: No Infectious Disease History: No Infectious Disease History: Denies: Hx Clostridium Difficile, Hx Hepatitis, Hx Human Immunodeficiency Virus (HIV), Hx of Known/Suspected MRSA, Hx Shingles, Hx Tuberculosis, Hx Known/ Suspected VRE, Hx Known/Suspected VRSA, History Other Infectious Disease, Traveled Outside the [place] in Last 30 Days - Family History Known Family History: Positive: Hypertension, Diabetes Negative: Cardiac Disease - Social History Occupation: Retired Lives: With Family Alcohol Use: None Hx Substance Use: No Substance Use Type: Reports: None Hx Tobacco Use: No Smoking Status (MU): Never Smoked Tobacco Have You Smoked in the Last Year: No Review of Systems Negative: Fever Negative: Chest Pain Negative: Shortness Of Breath Positive: Nausea. Negative: Abdominal Pain, Vomiting Negative: burning - Urinary, dysuria Positive: Arthralgia - Left knee Neurological/Mental Status: Other - Positive dizziness and near syncope, resolved All Other Systems Reviewed And Are Negative: Yes Physical Exam Triage Information Reviewed: Yes Vital Signs On Initial Exam: Initial Vitals Temp Pulse Resp BP Pulse Ox 98.0 F 80 18 122/62 99 06/26/19 17:20 06/26/19 17:20 06/26/19 17:20 06/26/19 17:20 06/26/19 17:20 Vital Signs Reviewed: Yes Procedures - Sedation Patient Received Moderate/Deep Sedation with Procedure: No Diagnostics - Vital Signs Vital Signs Temp Pulse Resp BP Pulse Ox 06/26/19 17:20 98.0 F 80 18 122/62 99 - Laboratory Result Diagrams: 06/26/19 18:06 06/26/19 18:06 Lab Statement: Any lab studies that have been ordered have been reviewed, and results considered in the medical decision making process. - Radiology Knee X-ray Radiology Interpretation Completed By: ED Physician Summary of Radiographic Findings: Knee X-ray IMPRESSION: No periostic fracture. Reviewed and interpreted by Dr. Wong, pending official radiology report. Discharge ED - Sign-Out/Discharge Documenting (check all that apply): Sign-Out Patient Signing out patient TO: Lenore Garcia - Patient is a sign out at 19: 00 on 06/26/[address] Olivia Wong to Dr. Lenore Garcia at shift change, pending imaging results, further workup, and disposition. - Discharge Plan Condition: Stable Referrals: Teofilo Pruett MD [Primary Care Provider] - - Attestation Statements Document Initiated by Scribe: Yes Documenting Scribe: Vidya Johnson Provider For Whom Scribe is Documenting (Include Credential): Olivia Wong MD Scribe Attestation: Vidya Roblero, scribed for Olivia Wong MD on 06/26/19 at 1932. Status of Scribe Document: Ready
[2019-06-26] MEDS ORDERED: NS 0.9% 1000 ML** 1,000 ML IV ONE (18:06)
[2019-06-26] MEDS ORDERED: Morphine 4 MG/ML VIAL (1 ml) 4 MG/ML VIAL IV ONE (18:11)
[2019-06-26] MEDS ORDERED: Ondansetron INJ* 2 MG/ML VIAL IV ONE (18:11)
[2019-06-26 18:58] LABS: Albumin/Globulin Ratio 1.3 (1-3); BUN/Creatinine Ratio 31.6 (8-20); Calcium 9.2 mg/dL (8.6-10.3); EGFR African American 88.1 (>60); EGFR Non-African American 72.8 (>60); Magnesium 1.6 mg/dL (1.9-2.7); Potassium 5.5 mmol/L (3.5-5.0); Total Bilirubin 0.4 mg/dL (0.2-1.0)
[2019-06-26 18:59] LABS: ABS Eosinophils 0.1 10^3/ul (0-0.6); ABS Monocytes 0.7 10^3/ul (0-0.8); ABS Neutrophils 5.3 10^3/ul (1.5-7.7); Hematocrit 30 % (35-47); Hemoglobin 10.1 g/dL (12.0-16.0); Lymphocyte % 13.7 %; Mean Corpuscular HGB Conc 34 g/dL (31-36); Mean Corpuscular Hemoglobin 29 pg (27-31); Mean Corpuscular Volume 87 fL (80-97); Mean Platelet Volume 7.3 fL (7.4-10.4); Nucleated Red Blood Cells % 0.1; Platelet Count 300 10^3/uL (150-450); Red Blood Count 3.45 10^6 /uL (3.70-4.87); Red Cell Distribution Width 14 % (10-15)
[2019-06-26] MEDS ORDERED: clonazePAM TAB(*) 0.5 MG PO ONE (19:30)
--- NOTE | 2019-06-26 20:08 | ED ---
Progress - Progress Note Progress Note: The patient is a sign-out from Dr. Olivia Wong MD, to Dr. Lenore Bowman MD, at change of shift at 1900 on 06/26/2019, pending EKG, DVT US, and disposition. EKG at 1917 reveals normal sinus rhythm at 90 bpm, nonspecific EKG. Venous Doppler US is negative for DVT. Upon re-evaluation with physical exam, the patient has good ROM of the knee, she is sitting comfortably in no acute distress. I spoke with the patient concerning the results of her workup with a plan for admission to hospitalist services secondary to the nature of her presentation. Patient and her is agreeable with this plan. Dr. Castillo, from the hospitalist services, accepts the patient for admission. - Results/Orders Results/Orders: EKG [1917]: Normal sinus rhythm at 90 bpm, nonspecific EKG. ED physician has reviewed and interpreted this EKG. Venous Doppler LLE Impression: No evidence of DVT in the left leg. ED physician has reviewed this report. Re-Evaluation - Re-Evaluation First Eval Re-Evaluation Time: 21:10 Comment: We discussed all results and plan for admission Course/Dx - Course Course Of Treatment: he patient is a sign-out from Dr. Olivia Wong MD, to Dr. Lenore Garcia MD, at change of shift at 1900 on 06/26/2019, pending EKG, DVT US, and disposition. EKG at 1917 reveals normal sinus rhythm at 90 bpm, nonspecific EKG. Venous Doppler US is negative for DVT. Upon re- evaluation with physical exam, the patient has good ROM of the knee, she is sitting comfortably in no acute distress. I spoke with the patient concerning the results of her workup with a plan for admission to hospitalist services secondary to the nature of her presentation. Patient and her is agreeable with this plan. Dr. Castillo, from the hospitalist services, accepts the patient for admission for syncope. - Diagnoses Provider Diagnoses: Syncope - Provider Notifications Discussed Care Of Patient With: Merlyn Castillo - hospitalist Time Discussed With Above Provider: 21:30 Instructed by Provider To: Other - I discussed the patients case with Dr. Castillo, who accepts the patient for admission. Discharge ED - Sign-Out/Discharge Documenting (check all that apply): Patient Departure - Patient accepted for admission by Dr. Castillo., Receiving Sign-Out Receiving patient FROM: Olivia Wong - Patient is a sign-out from Dr. Olivia Wong MD, at 1900 on 06/26/2019, pending EKG, DVT US, and disposition. - Discharge Plan Condition: Stable Disposition: ADMITTED TO [facility] - Billing Disposition and Condition Condition: STABLE Disposition: Admitted to [facility] - Attestation Statements Document Initiated by Scribe: Yes Documenting Scribe: Gloria Dolan Provider For Whom Mylene is Documenting (Include Credential): Dr. Lenore Garcia MD Scribe Attestation: IGloria, scribed for Dr. Lenore Garcia MD on 06/27/19 at 0526. Scribe Documentation Reviewed: Yes Provider Attestation: The documentation as recorded by the Gloria sparks accurately reflects the service I personally performed and the decisions made by me, Dr. Lenore Garcia MD Status of Scribe Document: Viewed Procedures - Sedation Patient Received Moderate/Deep Sedation with Procedure: No
[2019-06-26] MEDS ORDERED: Magnesium Sulfate 1 GM IV* 1 GM/100 ML BAG IV ONE (20:21)
[2019-06-26] MEDS ORDERED: Calcium Carbonate CHEW TAB* 500 MG (TUMS) PO PRN (22:40)
[2019-06-26] MEDS ORDERED: Cyclobenzaprine TAB* 10 MG PO PRN (22:40)
[2019-06-26] MEDS ORDERED: traMADol TAB* 50 MG PO PRN (22:45)
[2019-06-26] MEDS ORDERED: Dextrose 50% Syringe 50 ML* 25 GM/50 ML SYRINGE IV PUSH PRN (22:45)
--- NOTE | 2019-06-27 00:24 | HP ---
CC: Dr. Teofilo Pruett * HISTORY AND PHYSICAL: DATE OF ADMISSION: 06/26/19 TIME OF ADMISSION: 10:30 p.m. PRIMARY CARE PHYSICIAN: Dr. Teofilo Pruett. CHIEF COMPLAINT: Dizziness. HISTORY OF PRESENT ILLNESS: This is a 64-year-old woman with history of hypertension, had a recent left total knee replacement, who presents to the emergency department with an episode of dizziness and hypotension at Dr. Gore' s office this afternoon. She reports that she had been feeling fine this morning; however, she had 3 episodes of diarrhea and skipped lunch prior to her 3 o'clock appointment and before she saw Dr. Gore she was with the nurse and asked to use the bathroom and when she stood up she suddenly felt lightheaded. The nurse sat her back down, took her blood pressure and it was reported to be in the 70s from 140 when she had just taken it a minute prior. I have no records from Dr. Gore's office and the vitals recorded earlier today were 138/ 78 and the heart rate was 80. She reports that she rested for 1 minute after which she felt completely normal and she continues to feel well at this time. She also reports that her knee had been healing pretty well until last week, after an intense physical therapy session last when her knee was bent farther than it had been previously, which is why she scheduled the appointment for Dr. Gore today. Since then, she has had trouble with worsening knee pain, for which she is taking tramadol and cyclobenzaprine. She completed 4 weeks of apixaban and is no longer taking anticoagulation. Of note, she was recently started on buspirone for anxiety, which she thinks she has been tolerating well. PAST MEDICAL HISTORY: Hypertension with history of orthostatic hypotension postoperatively in April, anxiety, type 2 diabetes, GERD, hyperlipidemia, obesity, restless leg syndrome, FOZIA, and liver steatosis. PAST SURGICAL HISTORY: Left knee replacement in April of 2019 and a pancreas cyst removal many years ago. HOME MEDICATIONS: 1. Amiloride 5 mg daily. 2. Amlodipine 5 mg q.h.s. 3. Glipizide 2.5 mg daily. 4. Fiber gummies daily. 5. Lisinopril 5 mg daily. 6. Metformin 1000 mg b.i.d. 7. Multivitamin b.i.d. 8. Pioglitazone 30 mg daily. 9. BuSpar 10 mg b.i.d. 10. Calcium carbonate 200 mg daily. 11. Cyclobenzaprine 10 mg q.8 p.r.n. muscle spasm. FAMILY HISTORY: Diabetes. SOCIAL HISTORY: She lives at home with her . He is her proxy and his number is [phone]. She is a never smoker. She occasionally drinks alcohol and she is walking with a walker. REVIEW OF SYSTEMS: Also positive for palpitations today in Dr. Gore's office; however, she says she always gets them when she goes to doctor's office, so this was not surprising to her. Review of systems is negative for fevers, cough , shortness of breath, chest pain, nausea, vomiting. The remainder of the systems is negative except as per the HPI. PHYSICAL EXAMINATION GENERAL: Alert, well-appearing female, in no distress, resting in the stretcher. VITAL SIGNS: Temperature 98.0, heart rate 84, respiratory rate 19, pulse ox 97 % on room air, blood pressure 132/64. HEENT: Pupils equal, round, and reactive to light. No nystagmus. Oral mucosa is very dry. NECK: No JVP or adenopathy. LUNGS: Her lungs are clear bilaterally. CHEST: She is in a regular rate and rhythm. She has a 2/6 systolic murmur at the right upper sternal border without radiation. ABDOMEN: Soft, nontender, nondistended. No guarding or rebound. EXTREMITIES: Her left knee incision is well healed. She can bend the knee to approximately 15 degrees. There is no edema, no drainage, no erythema and her distal pulses are 2+ bilaterally. NEUROLOGIC: Her strength is 5/5 throughout. Her face is symmetric. She is oriented and appropriate. DIAGNOSTIC STUDIES/LAB DATA: White blood cells 7.0, hemoglobin 10.1, platelets 300. Sodium 128, potassium 5.5, chloride 97, BUN 25, creatinine 0.79 , glucose 135, magnesium 1.6. Troponin 0.00. Venous Doppler study: No evidence of DVT in the left leg. EKG: Normal sinus rhythm, normal axis, normal intervals. No ST or T-wave changes. ASSESSMENT AND PLAN: This is a 64-year-old woman with recent history of left total knee arthroplasty who presents to the emergency department from Dr. Gore' s office after she had an episode of dizziness and hypotension. 1. Dizziness and hypotension. This has resolved. Unfortunately, orthostatic vitals were not checked in the emergency department prior to her receiving fluids. I am more suspicious of orthostatic hypotension given her recent diarrhea and poor p.o. intake. She is also on amiloride, lisinopril, as well as pain control and muscle relaxers, so medication side effects could certainly be participating in her dizziness. Also the recent addition of BuSpar is a possibility to cause her dizziness; however, given the association with standing and poor p.o. intake with diarrhea recently, my suspicion is the highest for orthostatic hypotension. I am checking her orthostatic vitals in the emergency department and give her more IV fluids as indicated. She continues to appear very dry on my exam. I will monitor her on telemetry, trend her troponins. The other possibility is aortic stenosis as she does have right upper sternal border murmur; however, I am less suspicious of this given her ability to exercise and lack of exertional symptoms. We will check an echocardiogram tomorrow morning. 2. Anxiety. She feels that this played a significant role in the episode at Dr. Gore's office today. Continue BuSpar and clonazepam p.r.n. for now. 3. Type 2 diabetes. I am doubtful that hypoglycemia contributed a her symptoms were so transient. I am holding her medications and putting her on Accu-Cheks on a sliding scale. 4. Hyperkalemia, likely related to her KIERA inhibitor. I will hold her KIERA inhibitor and trend her blood pressure. 5. Hyponatremia, likely medication plus or minus pain related, asymptomatic and chronic. No intervention necessary at this time. 6. DVT prophylaxis: Lovenox subcutaneous. Please note that apixaban is still on her medication reconciliation, but she says this was continued after 4 weeks postop. 7. Disposition: Admit to observation. I will discuss with Orthopedics in the morning as she is interested in getting their opinion on her ongoing knee pain and she missed her appointment with them today due to this episode. I will sign her out to Dr. Pruett in the morning. [id number]/[facility] #: [id number] ROWENA
[2019-06-27] MEDS ORDERED: Sodium Polystyrene ORAL.SOL* 15 GM/60 ML BTL PO ONE (05:00)
[2019-06-27 06:00] LABS: ABS Eosinophils 0.1 10^3/ul (0-0.6); ABS Monocytes 0.4 10^3/ul (0-0.8); ABS Neutrophils 2.8 10^3/ul (1.5-7.7); Eosinophil % 1.8 %; Hematocrit 29 % (35-47); Hemoglobin 9.8 g/dL (12.0-16.0); Mean Corpuscular HGB Conc 34 g/dL (31-36); Mean Corpuscular Hemoglobin 30 pg (27-31); Mean Corpuscular Volume 87 fL (80-97); Mean Platelet Volume 7.2 fL (7.4-10.4); Platelet Count 268 10^3/uL (150-450); Red Blood Count 3.33 10^6 /uL (3.70-4.87); Red Cell Distribution Width 14 % (10-15); White Blood Count 4.3 10^3/uL (3.5-10.8)
[2019-06-27 06:22] LABS: Calcium 8.8 mg/dL (8.6-10.3); EGFR African American 112.3 (>60); EGFR Non-African American 92.8 (>60); Potassium 4.3 mmol/L (3.5-5.0)
[2019-06-27] MEDS ORDERED: Insulin LISPRO* 1 UNITS UNIT SUBCUT SCH (07:30)
[2019-06-27] MEDS ORDERED: Perflutren Lipid Microsphere* 3 ML VIAL ONE (08:04)
--- NOTE | 2019-06-27 08:11 | PN ---
Subjective - Subjective Reason for Note: Progress Note History: DISCHARGE SUMMARY: Jani Garcia had an episode of dizziness (spinning) and hypotension in Dr. Gore' s office yesterday. She was given IVF in the ED. This morning she is feeling better. She is asking for her diabetes medication. She has had no chest pain, dyspnea, diaphoresis, nausea. Yesterday she had x 3 BM - but they were not loose. Active Problems: Active Problems Dizziness (Acute) R42 Hyponatremia (Acute) E87.1 Hypotension (Acute) Anticoagulation adequate (Chronic) Z79.01 Anxiety disorder (Chronic) F41.9 Essential hypertension (Chronic) I10 GERD (gastroesophageal reflux disease) (Chronic) K21.9 History of arthroplasty of left knee (Chronic) Z96.652 Hypercholesterolemia (Chronic) E78.00 Obesity (BMI 30-39.9) (Chronic) E66.9 Restless legs (Chronic) Sleep apnea (Chronic) G47.30 Steatosis of liver (Chronic) K76.0 Type 2 diabetes mellitus, controlled (Chronic) E11.9 Current Medications: Current Medications Buspirone HCl (Buspar Tab*) 10 mg PO BID SHERIF Calcium Carbonate (Tums*) 250 mg PO DAILY PRN PRN Reason: INDIGESTION Cyclobenzaprine HCl (Flexeril Tab*) 10 mg PO Q8HR PRN PRN Reason: SPASMS - MUSCLE Last Admin: 06/27/19 00:30 Dose: 10 mg Dextrose (D50w Syringe 50 Ml*) 12.5 gm IV PUSH .FOR FS < 60 - SS PRN PRN Reason: FS < 60 Enoxaparin Sodium (Lovenox(*)) 40 mg SUBCUT Q24H [facility] Insulin Human Lispro (Humalog*) 0 units SUBCUT ACHS SHERIF; Protocol Tramadol HCl (Ultram*) 50 mg PO Q6H PRN PRN Reason: PAIN - MODERATE Last Admin: 06/27/19 01:47 Dose: 50 mg Home Medications: Home Medications Medication Instructions Recorded Confirmed Type Pioglitazone TAB* [Actos TAB*] 30 mg PO QAM 05/01/16 06/26/19 History glipiZIDE TAB.XL* [Glucotrol Xl*] 2.5 mg PO 1800 05/01/16 06/26/19 History metFORMIN* [Glucophage 1000 MG TAB 1,000 mg PO BID 05/01/16 06/26/19 History *] Lisinopril TAB* [Prinivil TAB 5 5 mg PO QAM 08/11/17 06/26/19 History MG*] amLODIPine TAB* [Norvasc 5 mg TAB*] 5 mg PO QPM 01/21/19 06/26/19 History Calcium Carbonate [Tums] 1 tab PO DAILY PRN 05/09/19 06/26/19 History Inulin/Chromium Picolinate [Fiber 1 each PO 1800 05/09/19 06/26/19 History Gummies] Multivitamin [Multivitamins] 1 tab PO BID 05/09/19 06/26/19 History Apixaban* [Eliquis*] 2.5 mg PO BID tab 05/19/19 06/26/19 Rx Cyclobenzaprine TAB* [Flexeril 10 10 mg PO Q8HR PRN 06/26/19 06/26/19 History MG TAB*] aMILoride TAB* [Midamor TAB*] 5 mg PO DAILY 06/26/19 06/26/19 History busPIRone TAB* [Buspar TAB*] 10 mg PO BID 06/26/19 06/26/19 History Allergies: Allergies Allergy/AdvReac Type Severity Reaction Status Date / Time No Known Allergies Allergy Verified 06/03/19 18:44 Objective - Vital Signs Vital Signs: Vital Signs 06/26/19 06/26/19 06/26/19 17:20 17:23 17:27 Temperature 98.0 F Pulse Rate 80 81 80 Respiratory 18 23 Rate Blood Pressure 122/62 122/62 (mmHg) O2 Sat by Pulse 99 99 99 Oximetry 06/26/19 06/26/19 06/26/19 17:56 18:00 18:26 Temperature Pulse Rate 85 84 90 Respiratory 21 21 22 Rate Blood Pressure 140/68 137/69 (mmHg) O2 Sat by Pulse 97 98 99 Oximetry 06/26/19 06/26/19 06/26/19 18:27 18:57 19:01 Temperature Pulse Rate 92 93 Respiratory 16 21 21 Rate Blood Pressure 159/83 (mmHg) O2 Sat by Pulse 100 100 Oximetry 06/26/19 06/26/19 06/26/19 19:57 20:00 20:27 Temperature Pulse Rate 88 86 86 Respiratory 20 21 19 Rate Blood Pressure 143/71 125/64 (mmHg) O2 Sat by Pulse 99 98 97 Oximetry 06/26/19 06/26/19 06/26/19 20:56 21:00 21:27 Temperature Pulse Rate 84 82 84 Respiratory 18 19 19 Rate Blood Pressure 137/68 132/64 (mmHg) O2 Sat by Pulse 99 99 97 Oximetry 06/26/19 06/26/19 06/26/19 21:57 22:00 22:27 Temperature Pulse Rate 79 79 82 Respiratory 17 17 21 Rate Blood Pressure 115/57 140/76 (mmHg) O2 Sat by Pulse 98 97 98 Oximetry 06/26/19 06/26/19 06/26/19 22:57 23:00 23:27 Temperature Pulse Rate 75 73 69 Respiratory 19 18 17 Rate Blood Pressure 127/68 116/66 (mmHg) O2 Sat by Pulse 98 98 99 Oximetry 06/26/19 06/27/19 06/27/19 23:45 00:10 00:20 Temperature 97.8 F 97.7 F Pulse Rate 69 75 80 Respiratory 22 16 Rate Blood Pressure 116/66 126/68 120/69 (mmHg) O2 Sat by Pulse 98 100 Oximetry 06/27/19 06/27/19 06/27/19 00:30 01:47 02:30 Temperature Pulse Rate Respiratory 18 18 18 Rate Blood Pressure (mmHg) O2 Sat by Pulse Oximetry 06/27/19 06/27/19 06/27/19 02:38 03:15 03:50 Temperature 97.0 F Pulse Rate 69 Respiratory 18 16 16 Rate Blood Pressure 130/64 (mmHg) O2 Sat by Pulse 100 Oximetry 06/27/19 05:49 Temperature Pulse Rate 66 Respiratory Rate Blood Pressure (mmHg) O2 Sat by Pulse Oximetry - Intake and Output Intake and Output: Intake & Output 06/24/19 06/25/19 06/26/19 06/27/19 11:59 11:59 11:59 11:59 Intake Total 1100 Balance 1100 Weight 188 lb 12.8 oz Intake: IV Fluids 1100 Oral 0 ADLs: Meal Record Start: 06/26/19 23: 13 Freq: DAILY@0900,1400,1800 Status: Active Protocol: Created 06/26/19 23:13 System (Rec: 06/26/19 23:13 System [email or web address]) Intake and Output Start: 06/26/19 17: 31 Freq: Status: Active Protocol: Created 06/26/19 17:31 System (Rec: 06/26/19 17:31 System [id number]) Intake and Output Start: 06/26/19 23: 13 Freq: DAILY@0600,1400,2200 Status: Active Protocol: Created 06/26/19 23:13 System (Rec: 06/26/19 23:13 System [email or web address]) Document 06/27/19 05:33 [id number] (Rec: 06/27/19 05:33 [id number]) - Physical Exam General Physical Exam Comment: She is warm and well perfused. Upon standing for 2 mins I measured her BP at 120/78. She had no dizziness or light headedness General: No Cyanosis, No Anemia, No Jaundice, No Clubbing Endocrine: Yes Central Obesity Lungs and Chest: Yes: Chest Expansion Full, Chest Expansion Symetrica, Percussion Note Resonant, Vessicular Breath Sounds. No: Crackles, Wheezes, Respiratory Distress Heart Rate and Rhythm: Regular Additional Cardiovascular: Yes: Normal Heart Sounds. No: Heart Murmur, Pedal Edema Abdominal Exam: Yes: Soft, Bowel Sounds Present. No: Distention, Abdominal Tenderness - Extremities Cranial Nerves II-XII Intact: Yes Limbs: Normal Power, Normal Tone - Neuro Orientation: A/O x3 Psychiatric: Anxious Speech: Normal Results - Results Lab Results: Laboratory Results - last 24 hr 06/26/19 06/26/19 06/27/19 18:06 18:06 05:19 WBC 7.0 RBC 3.45 L Hgb 10.1 L Hct 30 L MCV 87 MCH 29 MCHC 34 RDW 14 Plt Count 300 MPV 7.3 L Neut % (Auto) 75.6 Lymph % (Auto) 13.7 [place] % (Auto) 9.4 Eos % (Auto) 1.0 Baso % (Auto) 0.3 Absolute Neuts (auto) 5.3 Absolute Lymphs (auto) 1.0 Absolute Monos (auto) 0.7 Absolute Eos (auto) 0.1 Absolute Basos (auto) 0.0 Absolute Nucleated RBC 0.0 Nucleated RBC % 0.1 Sodium 128 L 134 L Potassium 5.5 H 4.3 Chloride 97 L 103 Carbon Dioxide 25 24 Anion Gap 6 7 BUN 25 H 16 Creatinine 0.79 0.64 Est GFR ( Amer) 88.1 112.3 Est GFR (Non-Af Amer) 72.8 92.8 BUN/Creatinine Ratio 31.6 H 25.0 H Glucose 135 H 114 H POC Glucose (mg/dL) Calcium 9.2 8.8 Magnesium 1.6 L Total Bilirubin 0.40 AST 15 ALT 10 Alkaline Phosphatase 54 Troponin I 0.00 Total Protein 7.0 Albumin 4.0 Globulin 3.0 Albumin/Globulin Ratio 1.3 06/27/19 06/27/19 05:19 07:37 WBC 4.3 RBC 3.33 L Hgb 9.8 L Hct 29 L MCV 87 MCH 30 MCHC 34 RDW 14 Plt Count 268 MPV 7.2 L Neut % (Auto) 64.9 Lymph % (Auto) 23.0 [place] % (Auto) 10.0 Eos % (Auto) 1.8 Baso % (Auto) 0.3 Absolute Neuts (auto) 2.8 Absolute Lymphs (auto) 1.0 Absolute Monos (auto) 0.4 Absolute Eos (auto) 0.1 Absolute Basos (auto) 0.0 Absolute Nucleated RBC 0.0 Nucleated RBC % 0.0 Sodium Potassium Chloride Carbon Dioxide Anion Gap BUN Creatinine Est GFR ( Amer) Est GFR (Non-Af Amer) BUN/Creatinine Ratio Glucose POC Glucose (mg/dL) 130 H Calcium Magnesium Total Bilirubin AST ALT Alkaline Phosphatase Troponin I Total Protein Albumin Globulin Albumin/Globulin Ratio Radiology Results: Patient Name: JANI GARCIA Medical Record#: [id number] Ordering Physician: Olivia Wong MD Acct.#: [id number] : 1955 Age: 64 Sex: F Location: [address] [place] [address]/TELEMETRY Exam Date: 06/26/191805 ADM Status: ADM Stephanie Order Information: KNEE LEFT 4+ VWS Accession Number: [id number] CPT: 74595 HISTORY: pain, swelling s/p TKR 5 weeks . COMPARISONS: June 05, 2019 VIEWS: 4, Frontal, lateral, axial, and oblique views of the left knee FINDINGS: BONE DENSITY: Normal. BONES: The patient is status post left knee arthroplasty. There is no hardware failure or osteolysis. JOINTS: The patient is status post left knee arthroplasty. ALIGNMENT: There is no dislocation. SOFT TISSUES: Unremarkable. OTHER FINDINGS: None. IMPRESSION: STATUS POST LEFT KNEE ARTHROPLASTY R0 Preliminary Imaging Read R0 <Electronically signed by Francisco J Wright MD in OV> 06/27/19735 Dictated By: Francisco J Wright MD Dictated Date/Time: 06/27/19734 Transcribed Date/Time: 06/27/19734 Copy to: Patient Name: JANI GARCIA Medical Record#: [id number] Ordering Physician: Olivia Wong MD Acct.#: [id number] : 1955 Age: 64 Sex: F Location: EMERGENCY DEPARTMENT Exam Date: 06/26/191809 ADM Status: REG ER Order Information: VL LOWER EXT VEINS LEFT Accession Number: [id number] CPT: 00954 PROCEDURE INFORMATION: Exam: US Duplex Left Lower Extremity Veins, Limited Exam date and time: 06/26/2019 7:24 PM Age: 64 years old Clinical indication: Pain; Leg, lower; Left; Prior surgery; Surgery date: 1-6 months; Surgery type: Total knee replacement 5 weeks ago; Additional info: Pain S/P tkr 5 weeks TECHNIQUE: Imaging protocol: Real-time Duplex ultrasound of the Left Lower Extremity with 2-D johnson scale, color Doppler flow and spectral waveform analysis with image documentation. Limited exam focused on the left lower extremity veins. COMPARISON: US LE VEIN L VL LOWER EXT VEINS LEFT 06/03/2019 7:43 PM FINDINGS: Left deep veins: Unremarkable. The common femoral, femoral, proximal profunda femoral and popliteal veins are patent without thrombus. Normal Doppler waveforms. Normal compressibility and/or augmentation response. Suboptimal visualization of the calf veins but the visualized peroneal vein is patent. Left superficial veins: Unremarkable. Saphenofemoral junction is patent without thrombus. Soft tissues: There is mild fluid posterior to the probably a popliteal cyst or part of a joint effusion. IMPRESSION: No evidence of DVT in the left leg. Dictated and Authenticated by: Debra Bullard MD 06/26/2019 7:43 PM Eastern Time ([place] and [place]) To contact [facility] with a general question: Operations Center - [phone] For direct physician to physician contact: Physician Hotline - [phone] [facility] ([facility] Facility ID #[id number]) <Electronically signed by Debra Bullard MD in OV> 06/26/191942 Dictated By: Debra Bullard MD Dictated Date/Time: 06/26/191923 Transcribed Date/Time: 06/26/191923 Copy to: This report is only to be considered final once signed by the Provider(s) as displayed in the "<Electronically Signed by >" field (s). Absence of a signature indicates the report is in a draft status and still needs to be finalized. In the event this document was created by someone other than the signing Provider, the individual initiating the document will be listed in the "Entered by:" or "Dictated by:" pierre. 1 of 2 EKG Report: EKG sinus rhythm rate 90 IN 162 QTc 415 QRS axis 4 - early transition Assessment - Problem List Assessment: Patient Problems Dizziness (Acute) Hyponatremia (Acute) Hypotension (Acute) Anticoagulation adequate (Chronic) Anxiety disorder (Chronic) Essential hypertension (Chronic) GERD (gastroesophageal reflux disease) (Chronic) History of arthroplasty of left knee (Chronic) Hypercholesterolemia (Chronic) Obesity (BMI 30-39.9) (Chronic) Restless legs (Chronic) Sleep apnea (Chronic) Steatosis of liver (Chronic) Type 2 diabetes mellitus, controlled (Chronic) Plan: Dizziness (Acute) Hyponatremia (Acute) Hypotension (Acute) She describes vertigo ("spinning") rather than light headedness. However, she had a low BP measured in Dr. Gore's office. This morning she is feeling back to normal. I couldn't reproduce her symptoms when she stood up. Her BP was stable. Possibilities: - Orthostatic hypotension - Vertigo - perhaps BPPV - Adrenal insufficiency (low sodium, high potassium). Her hyponatremia is improved and her hyperkalemia corrected this morning. Her bicarbonate is normal. I have checked a cortisol Comorbidities: Essential hypertension (Chronic) Her BP has been lower since her surgery. She was asymptomatic from this. Anxiety disorder (Chronic) Jani Garcia acknowledges she has had anxiety with this episode and wonders if this is the cause. Type 2 diabetes mellitus, controlled (Chronic) I will restart her oral hypoglycemic agents. Secondary diagnoses: Anticoagulation adequate (Chronic) GERD (gastroesophageal reflux disease) (Chronic) History of arthroplasty of left knee (Chronic) Hypercholesterolemia (Chronic) Obesity (BMI 30-39.9) (Chronic) Restless legs (Chronic) Sleep apnea (Chronic) Steatosis of liver (Chronic) I spoke with the patient and her and discussed the above. I will mobilize her and she will have her breakfast. I will stop her antihypertensives for a couple of days. If all is well, I will discharge her home. Disposition: Home Condition: Fair
[2019-06-27] MEDS ORDERED: Meclizine TAB* 12.5 MG PO PRN (08:22)
[2019-06-27 09:00] VITALS: BP 115/53
[2019-06-27] MEDS ORDERED: busPIRone TAB* 10 MG PO SCH (09:00)
[2019-06-27] MEDS ORDERED: Enoxaparin(*) 40 MG/0.4 ML SYR SUBCUT SCH (09:00)
--- NOTE | 2019-06-27 09:31 | ECHO ---
*[facility]* [place] [address] Fax #: [phone] Transthoracic Echocardiogram Patient: Alysha Garcia : 1955 Study Date: 06/27/2019 Age: 64 Gender: F HR: 68 bpm Height: 61 in /154.9 cm BSA: 1.85 m^2 Weight: 189.6 lb /86.2 kg BMI: 35.9 kg/m^2 *Chemical Lab Technician: * Shara Avery *Referring Physician: * Merlyn Castillo *Reading Physician: * Carl Hassan MD Indications: Murmur. History: Risk factors: Hypertension. Diabetes mellitus. Dyslipidemia. Conclusions Summary: - Left ventricle: Systolic function is normal. The estimated ejection fraction is 55-60%. Wall motion is normal; there are no regional wall motion abnormalities. - Mitral valve: There is trace regurgitation. - Aortic valve: Transvalvular velocity is within the normal range. There is no evidence of stenosis. - Tricuspid valve: There is no regurgitation. - Pulmonary arteries: Systolic pressure can not be accurately estimated. - Study data: No prior study is available for comparison. Study data: Transthoracic echocardiogram. Procedure: Transthoracic echocardiography was performed. Image quality was suboptimal. Intravenous Definity , 2 mlswas administered. Complete 2D, spectral Doppler, and color flow Doppler. Location: Bedside. Patient status: Inpatient. Patient room number: 453. No prior study is available for comparison. Rhythm: Normal sinus rhythm with PVC's. Findings Left ventricle: The cavity size is normal. Wall thickness is normal. Systolic function is normal. The estimated ejection fraction is 55-60%. Wall motion is normal; there are no regional wall motion abnormalities. Left ventricular diastolic function parameters are normal. Right ventricle: Not well visualized. Ventricular septum: The ventricular septum is normal. Left atrium: The atrium is normal in size. Right atrium: Not well visualized. Atrial septum: No defect or patent foramen ovale is identified. Mitral valve: The valve is structurally normal. There is no evidence of stenosis. There is trace regurgitation. Aortic valve: The valve is structurally normal. The valve is trileaflet. Cusp separation is normal. Transvalvular velocity is within the normal range. There is no evidence of stenosis. There is no significant regurgitation. Tricuspid valve: The valve is structurally normal. There is no evidence of stenosis. There is no regurgitation. Pulmonic valve: The valve is structurally normal. There is no evidence of stenosis. There is trace regurgitation. Aorta: The aortic root appears normal. The aortic arch appears normal. Pericardium: There is no significant pericardial effusion. Pulmonary arteries: Systolic pressure can not be accurately estimated. Systemic veins: Inferior vena cava: The vessel is normal in size. There is (>= 50%) respiratory change in the IVC dimension. Pulmonary veins: Not well visualized. Measurements Left ventricle Value Ref Aortic valve Value Ref CHRISTINE, LAX 4.0 cm 3.8 - 5.2 Peak v, S 1.53 m/sec ---- ESD, LAX 2.4 cm 2.2 - 3.5 VTI, S 31.0 cm ---- FS, LAX 40 % 27 - 45 Mean grad, S 4.0 mm Hg ---- PW, ED, LAX 0.8 cm 0.6 - 0.9 Peak grad, S 9.0 mm Hg ---- E', lat fritz, TDI (L) 9.8 cm/sec >=10.0 SHIRA, VTI 3.04 cm^2 ---- E/e', lat fritz, 8 SHIRA, Vmax 2.61 cm^2 ---- TDI E', med fritz, TDI 7.8 cm/sec >=7.0 Mitral valve Value Ref Peak E 0.79 m/sec ---- LVOT Value Ref Peak A 0.99 m/sec ---- Diam, S 2.00 cm Decel time 251 ms ---- Area 3.1 cm^2 Peak grad, D 2.5 mm Hg ---- Peak jagdeep, S 1.27 m/sec Peak E/A ratio 0.8 ---- Peak grad, S 6 mm Hg Mean grad, S 3 mm Hg Pulmonic valve Value Ref SV 94 ml Peak v, S 1.03 m/sec ---- Peak grad, S 4.0 mm Hg ---- Ventricular septum Value Ref IVS, ED (H) 1.0 cm 0.6 - 0.9 Aortic root Value Ref Root diam 3.1 cm <4.0 Right ventricle Value Ref CHRISTINE, LAX 2.6 cm Ascending aorta Value Ref AAo AP diam, S 3.3 cm ---- Left atrium Value Ref AP dim, ES 3.00 cm 2.70 - Aortic arch Value Ref 3.80 Arch diam 2.9 cm ---- ML dim, A4C 4.2 cm SI dim, A4C 5.3 cm Decending aorta Value Ref Vol/bsa, ES, 1-p 18 ml/m^2 11 - 40 Ancelmo peak jagdeep 0.79 m/sec ---- A4C Legend: (L) and (H) julito values outside specified reference range. Prepared and electronically signed by Carl Hassan MD 06/27/2019 09:31
--- NOTE | 2019-06-27 11:57 | PN ---
Progress Note - Progress Note Date of Service: 06/27/19 Note: Went to patient room today at 1130, she had already been discharged to home.
[2019-06-27] MEDS ORDERED: glipiZIDE TAB* 5 MG PO SCH (17:00)
== END 2019-06-27 11:10 | disposition home or self-care (01) ==
LOC: ED 17:10 → MEDTELE 22:38
PROVIDERS: ADMIT Internal Medicine; ATTEND Internal Medicine
DX: R55 Syncope and collapse (principal); I95.9 Hypotension, unspecified; I10 Essential (primary) hypertension; R42 Dizziness and giddiness; R11.0 Nausea; E87.1 Hypo-osmolality and hyponatremia; M25.562 Pain in left knee; G25.81 Restless legs syndrome; K76.0 Fatty (change of) liver, not elsewhere classified; E87.5 Hyperkalemia; E66.9 Obesity, unspecified; R01.1 Cardiac murmur, unspecified; G47.30 Sleep apnea, unspecified; E78.5 Hyperlipidemia, unspecified; E11.9 Type 2 diabetes mellitus without complications; K21.9 Gastro-esophageal reflux disease without esophagitis; F41.9 Anxiety disorder, unspecified; F32.9 Major depressive disorder, single episode, unspecified; Z79.899 Other long term (current) drug therapy; Z83.3 Family history of diabetes mellitus; Z79.01 Long term (current) use of anticoagulants; Z96.652 Presence of left artificial knee joint; Z79.4 Long term (current) use of insulin; Z79.84 Long term (current) use of oral hypoglycemic drugs
CPT/HCPCS: 36415; 80048; 80053; 83735; 84484; 85025; 93005; 93306; 96361; 96365; 96372; 96375; 99284; A9270-GY; C8929; G0378; J1650; J2270; J2405; J3475